=== PATIENT | male | born 1965 | race Caucasian/White ===

== ENCOUNTER 2018-11-10 22:13 | Emergency (ER) | payer OTHER ==
--- OUTSIDE RECORDS SUMMARY | 2018-11-10 22:16 | XMS REPORT | Clinical Summary ---
:1964 Demographics Phone Unavailable Preferred Language Unknown Marital Status Unknown Worship Affiliation Unknown Race Unknown Ethnic Group Unknown Author Organization [facility] Address [address] [place] [address] Care Team Providers Name Role Phone Unavailable Primary Care Provider Unavailable Allergies No Known Allergies Medications Not on file Active Problems Not on file Encounters Date Type Specialty Care Team Description 09/30/2018 Emergency Emergency Medicine [place], after 11/09/2017 Social History Tobacco Use Types Packs/Day Years Used Date Never Assessed Sex Assigned at Date Recorded Not on file Job Start Date Occupation Industry Not on file Not on file Not on file Travel History Travel Start Travel End No recent travel history available. Last Filed Vital Signs Not on file Plan of Treatment Not on file Results Not on fileafter 11/09/2017
--- OUTSIDE RECORDS SUMMARY | 2018-11-10 22:16 | XMS REPORT ---
:1965 [facility] Address [address] [place] [address] Care Team Providers Name Role Phone Unavailable Unavailable Unavailable Problems This patient has no known problems. Allergies, Adverse Reactions, Alerts This patient has no known allergies or adverse reactions. Medications This patient has no known medications.
[2018-11-10] MEDS ORDERED: NA CHLORIDE 0.9% 1,000 ML ONE (22:40)
[2018-11-10] MEDS ORDERED: ONDANSETRON 4 MG/2 ML VIAL ONE (22:40)
[2018-11-10 23:12] LABS: Absolute Lymphocytes (CBC) 2.2 K/uL (0.7-4.9); Basophils % 1.4 % (0-1.3); Eosinophils % 3.5 % (0-4.4); MPV 7.9 fL (7.6-11.3); Monocytes % 6.6 % (3.3-12.3)
[2018-11-10 23:30] LABS: ALT/SGPT 22 U/L (12-78); AST/SGOT 20 U/L (15-37); Albumin 3.8 g/dL (3.4-5.0); Alkaline Phosphatase 79 U/L (45-117); BUN Blood Urea Nitrogen 18 mg/dL (7-18); Bicarbonate 26 mmol/L (21-32); Bilirubin Direct 0.1 mg/dL (0-0.2); Bilirubin Total 0.3 mg/dL (0.2-1.0); Glucose Level 77 mg/dL (74-106); Potassium 3.4 mmol/L (3.5-5.1); Protein, Total 6.8 g/dL (6.4-8.2); Sodium Level 143 mmol/L (136-145)
[2018-11-10] MEDS ORDERED: POTASSIUM 25 MEQ EFFERV TAB ONE (23:54)
--- NOTE | 2018-11-11 01:05 | ER ---
Nurse's Notes [facility] Name: John Richards Age: 53 yrs Sex: Male : 1965 Arrival Date: 11/10/2018 Time: 22:16 Bed 4 Private MD: Diagnosis: Heat Exhaustion Presentation: 11/10 22:17 Presenting complaint: Patient states: Pt is homeless, has spent all day [place] [facility] [place], has not eaten today and states he has not been able to tolerate water. Pt reports that he was seen in ER in the [place] yesterday for same complaint but that they discharged him without giving him fluids. Transition of care: patient was not received from another setting of care. Onset of symptoms was November 10, 2018. Risk Assessment: Do you want to hurt yourself or someone else? Patient reports no desire to harm self or others. Initial Sepsis Screen: Does the patient meet any 2 criteria? No. Patient's initial sepsis screen is negative. Does the patient have a suspected source of infection? No. Patient's initial sepsis screen is negative. Care prior to arrival: None. 22:17 Method Of Arrival: EMS: [facility] 2 22:17 Acuity: VICTOR HUGO 3 tl2 Triage Assessment: 22:21 General: Appears in no apparent distress. uncomfortable, Behavior is calm, cooperative, tl2 appropriate for age. Pain: Complains of pain in chronic pain. Historical: - Allergies: 22:21 No Known Allergies; tl2 - Home Meds: 22:21 ibuprofen 800 mg Oral tab 1 tab BID [Active]; tl2 - PMHx: 22:21 chronic pain; Hernia; tl2 - PSHx: 22:21 None; tl2 - Immunization history:: Adult Immunizations up to date. - Social history:: Smoking status: Patient uses tobacco products, smokes one pack cigarettes per day. - Ebola Screening: : No symptoms or risks identified at this time. - Family history:: not pertinent. - Hospitalizations: : Patient was recently seen at [facility], . Screenin:22 Abuse screen: Denies threats or abuse. Nutritional screening: No deficits noted. tl2 Tuberculosis screening: No symptoms or risk factors identified. Fall Risk None identified. Assessment: 22:15 General: Appears in no apparent distress. unkempt, Behavior is calm, cooperative, rr5 appropriate for age, Smells of smoke mendez. Pain: Complains of pain in right inguinal Pain does not radiate. Pain currently is 5 out of 10 on a pain scale. Quality of pain is described as aching, Pain began gradually, Is intermittent. 22:15 Neuro: Level of Consciousness is awake, alert, obeys commands, Oriented to person, rr5 place, time, situation, Appropriate for age. Cardiovascular: Capillary refill < 3 seconds Patient's skin is warm and dry. Respiratory: Airway is patent Respiratory effort is even, unlabored, Respiratory pattern is regular, symmetrical. GI: Abdomen is flat. : No signs and/or symptoms were reported regarding the genitourinary system. EENT: No signs and/or symptoms were reported regarding the EENT system. Derm: Skin is intact, Skin temperature is warm. Musculoskeletal: Circulation, motion, and sensation intact. Capillary refill < 3 seconds, Range of motion: intact in all extremities. 22:50 Reassessment: Patient appears in no apparent distress at this time. Patient is alert, rr5 oriented x 3, equal unlabored respirations, skin warm/dry/pink. snacks given with good appetite. Patient states feeling better. Patient states symptoms have improved. 23:25 Reassessment: Patient appears in no apparent distress at this time. asleep on bed rr5 comfortably. Patient states feeling better. Patient states symptoms have improved. 11/11 00:25 Reassessment: Patient appears in no apparent distress at this time. turned on right rr5 side lying position. breathing spontaneously at room air. Patient states feeling better. Patient states symptoms have improved. 00:55 Reassessment: complaints of mild headache. ED provider informed with order made and rr5 carried out. 01:10 Reassessment: Patient appears in no apparent distress at this time. Patient is alert, rr5 oriented x 3, equal unlabored respirations, skin warm/dry/pink. discharge instruction given and explained without complaints made. Patient states symptoms have improved. Vital Signs: 11/10 22:21 BP 119 / 89; Pulse 68; Resp 18; Temp 97.9(O); Pulse Ox 99% on R/A; Weight 56.7 kg; tl2 Height 5 ft. 7 in. (170.18 cm); Pain 5/10; 23:00 BP 97 / 75; Pulse 73; Resp 17; Pulse Ox 99% on R/A; rr5 11/11 00:00 BP 95 / 60; Pulse 75; Resp 17; Pulse Ox 99% on R/A; rr5 01:00 BP 115 / 88; Pulse 70; Resp 16; Temp 98; Pulse Ox 100% on R/A; rr5 11/10 22:21 Body Mass Index 19.58 (56.70 kg, 170.18 cm) tl2 ED Course: 11/10 22:16 Patient arrived in ED. tl2 22:19 Triage completed. tl2 22:19 Endy Ham MD is Attending Physician. wa 22:20 Warm blanket given. Head of bed elevated. rr5 22:21 Arm band placed on right wrist. tl2 22:22 Patient has correct armband on for positive identification. Placed in gown. Bed in low tl2 position. Call light in reach. Side rails up X 1. 22:23 Jacinto Carrillo RN is Primary Nurse. rr5 22:30 Pulse ox on. NIBP on. rr5 22:35 Inserted saline lock: 20 gauge in left forearm, using aseptic technique. Blood rr5 collected. 22:40 Diet: Patient given snack. Patient given juice. Patient given water. Tolerated well. rr5 11/11 01:02 Benson Johnson MD is Referral Physician. wa 01:17 No provider procedures requiring assistance completed. IV discontinued, intact, rr5 bleeding controlled, No redness/swelling at site. Pressure dressing applied. Administered Medications: 11/10 22:38 Drug: Zofran 4 mg Route: IVP; Site: left forearm; rr5 23:40 Follow up: Response: No adverse reaction rr5 22:38 Drug: NS 0.9% 1000 ml Route: IV; Rate: 1 bolus; Site: left forearm; rr5 11/11 01:18 Follow up: Response: No adverse reaction; IV Status: Completed infusion; IV Intake: rr5 1000ml 11/10 23:44 Drug: Potassium Effervescent Tablet 50 mEq Route: PO; rr5 11/11 01:05 Follow up: Response: No adverse reaction rr5 01:00 Drug: Tylenol 1000 mg Route: PO; rr5 01:18 Follow up: Response: No adverse reaction; Medication administered at discharge. rr5 Intake: 01:18 IV: 1000ml; Total: 1000ml. rr5 Output: 00:55 Urine: 450ml (Voided); Total: 450ml. rr5 Outcome: 01:04 Discharge ordered by . lien 01:17 Discharged to home ambulatory. rr5 01:17 Condition: stable 01:17 Discharge instructions given to patient, Instructed on discharge instructions, follow up and referral plans. medication usage, Demonstrated understanding of instructions, follow-up care, medications, Prescriptions given X 1. 01:20 Patient left the ED. rr5 Signatures: Rachel Vanegas, RN RN tl2 Endy Ham MD MD wa Roque, Raymond RN RN rr5
--- NOTE | 2018-11-11 01:05 | EDPHYS ---
Physician Documentation [facility] Name: John Richards Age: 53 yrs Sex: Male : 1965 Arrival Date: 11/10/2018 Time: 22:16 Bed 4 Private MD: ED Physician Endy Ham HPI: 11/10 22:51 This 53 yrs old Male presents to ER via EMS with complaints of Dehydration, wa Heat exposure. 22:51 The patient presents to the emergency department with vomiting, states feels dehydrated wa [place]. brought in by EMS and police after calling them with complaint of dehydration. states vomited x 2 today. denies pain. tells me he was discharged from [facility] in the [place] and dropped in this area by a taxi because he wants to move here. . Onset: The symptoms/episode began/occurred today. Possible causes: heat-related illness. The symptoms are aggravated by nothing. The symptoms are alleviated by nothing. Associated signs and symptoms: Pertinent positives: vomiting, Pertinent negatives: abdominal pain, diarrhea, fever, nausea. Severity of symptoms: At their worst the symptoms were mild in the emergency department the symptoms none at this time. The patient has not experienced similar symptoms in the past, The patient has experienced similar episodes in the past, a few times. The patient has been recently seen by a physician:. as noted above. Historical: - Allergies: 22:21 No Known Allergies; tl2 - Home Meds: 22:21 ibuprofen 800 mg Oral tab 1 tab BID [Active]; tl2 - PMHx: 22:21 chronic pain; Hernia; tl2 - PSHx: 22:21 None; tl2 - Immunization history:: Adult Immunizations up to date. - Social history:: Smoking status: Patient uses tobacco products, smokes one pack cigarettes per day. - Ebola Screening: : No symptoms or risks identified at this time. - Family history:: not pertinent. - Hospitalizations: : Patient was recently seen at [facility], . ROS: 22:56 Constitutional: Negative for fever, chills, and weight loss, Eyes: Negative for injury, wa pain, redness, and discharge, ENT: Negative for injury, pain, and discharge, Neck: Negative for injury, pain, and swelling, Cardiovascular: Negative for chest pain, palpitations, and edema, Respiratory: Negative for shortness of breath, cough, wheezing, and pleuritic chest pain, Back: Negative for injury and pain, MS/Extremity: Negative for injury and deformity, Skin: Negative for injury, rash, and discoloration, Neuro: Negative for headache, weakness, numbness, tingling, and seizure, Psych: Negative for depression, anxiety, suicide ideation, homicidal ideation, and hallucinations. 22:56 Abdomen/GI: Positive for vomiting, Negative for diarrhea. 22:56 : Positive for of the R groin hernia. 22:56 Neuro: 22:56 All other systems are negative. Exam: 22:57 Constitutional: This is a well developed, well nourished patient who is awake, alert, wa and in no acute distress. Head/Face: Normocephalic, atraumatic. Eyes: Pupils equal round and reactive to light, extra-ocular motions intact. Lids and lashes normal. Conjunctiva and sclera are non-icteric and not injected. Cornea within normal limits. Periorbital areas with no swelling, redness, or edema. ENT: Nares patent. No nasal discharge, no septal abnormalities noted. Tympanic membranes are normal and external auditory canals are clear. Oropharynx with no redness, swelling, or masses, exudates, or evidence of obstruction, uvula midline. Mucous membranes moist. Neck: Trachea midline, no thyromegaly or masses palpated, and no cervical lymphadenopathy. Supple, full range of motion without nuchal rigidity, or vertebral point tenderness. No Meningismus. Cardiovascular: Regular rate and rhythm with a normal S1 and S2. No gallops, murmurs, or rubs. Normal PMI, no JVD. No pulse deficits. Respiratory: Lungs have equal breath sounds bilaterally, clear to auscultation and percussion. No rales, rhonchi or wheezes noted. No increased work of breathing, no retractions or nasal flaring. Back: No spinal tenderness. No costovertebral tenderness. Full range of motion. Skin: Warm, dry with normal turgor. Normal color with no rashes, no lesions, and no evidence of cellulitis. MS/ Extremity: Pulses equal, no cyanosis. Neurovascular intact. Full, normal range of motion. Neuro: Awake and alert, GCS 15, oriented to person, place, time, and situation. Cranial nerves II-XII grossly intact. Motor strength 5/5 in all extremities. Sensory grossly intact. Cerebellar exam normal. Normal gait. Psych: Awake, alert, with orientation to person, place and time. Behavior, mood, and affect are within normal limits. 22:57 Abdomen/GI: Inspection: abdomen appears normal, Bowel sounds: normal, in all quadrants, Palpation: abdomen is soft and non-tender, in all quadrants, Hernia: noted in the right inguinal area, non-tender. reducible. Vital Signs: 22:21 BP 119 / 89; Pulse 68; Resp 18; Temp 97.9(O); Pulse Ox 99% on R/A; Weight 56.7 kg; tl2 Height 5 ft. 7 in. (170.18 cm); Pain 5/10; 23:00 BP 97 / 75; Pulse 73; Resp 17; Pulse Ox 99% on R/A; rr5 11/11 00:00 BP 95 / 60; Pulse 75; Resp 17; Pulse Ox 99% on R/A; rr5 01:00 BP 115 / 88; Pulse 70; Resp 16; Temp 98; Pulse Ox 100% on R/A; rr5 11/10 22:21 Body Mass Index 19.58 (56.70 kg, 170.18 cm) tl2 MDM: 11/10 22:19 Patient medically screened. ar 22:58 Differential diagnosis: gastritis, r/o renal failure. consider heat exhaustion. ar 11/11 00:22 Data reviewed: vital signs, nurses notes, lab test result(s). Test interpretation: by ar ED physician or midlevel provider: labs noted for low K of 3.4. Response to treatment: the patient's symptoms have markedly improved after treatment. ED course: repalced K po. pt eat a sandwich. sleeping comfortably. awaiting UA. plan to d/c. . 01:01 Test interpretation: by ED physician or midlevel provider: UA noted for 1+ ketones. ar 11/10 22:21 Order name: Urine Drug Screen ar 11/10 22:53 Order name: Basic Metabolic Panel; Complete Time: 23:37 EDMS 11/10 22:53 Order name: Liver (Hepatic) Function; Complete Time: 23:37 EDMS 11/10 22:53 Order name: Acetaminophen Level; Complete Time: 23:37 EDMS 11/10 22:53 Order name: CBC with Automated Diff; Complete Time: 23:37 [facility] 11/11 00:56 Order name: Urine Dipstick--Ancillary (enter results) 6 11/10 22:21 Order name: IV Saline Lock; Complete Time: 22:47 ar 11/10 22:21 Order name: Labs collected and sent; Complete Time: 22:47 ar 11/10 22:21 Order name: Urine Dipstick-Ancillary (obtain specimen); Complete Time: 01:08 ar Administered Medications: 11/10 22:38 Drug: Zofran 4 mg Route: IVP; Site: left forearm; rr5 23:40 Follow up: Response: No adverse reaction rr5 22:38 Drug: NS 0.9% 1000 ml Route: IV; Rate: 1 bolus; Site: left forearm; rr5 11/11 01:18 Follow up: Response: No adverse reaction; IV Status: Completed infusion; IV Intake: rr5 1000ml 11/10 23:44 Drug: Potassium Effervescent Tablet 50 mEq Route: PO; rr5 11/11 01:05 Follow up: Response: No adverse reaction rr5 01:00 Drug: Tylenol 1000 mg Route: PO; rr5 01:18 Follow up: Response: No adverse reaction; Medication administered at discharge. rr5 Disposition: 11/11/18 01:04 Discharged to Home. Impression: Heat Exhaustion. - Condition is Stable. - Discharge Instructions: Dehydration, Adult, [id number]. - Prescriptions for Zofran 4 mg Oral Tablet - take 1 tablet by ORAL route every 12 hours As needed; 6 tablet. - Medication Reconciliation Form, Thank You Letter, Antibiotic Education, Prescription Opioid Use form. - Follow up: Benson Johnson MD; When: 2 - 3 days; Reason: Recheck today's complaints. - Problem is new. - Symptoms have improved. - Notes: stay hydrated. get shade during the day when the heat is at its worst. Signatures: Dis[facility] Rachel Vanegas, RN RN tl2 Endy Ham MD MD wa Roque, Raymond RN RN rr5 Corrections: (The following items were deleted from the chart) 01: 00:43 ACETAMINOPHEN+C.LAB.BRZ ordered. EDMS EDMS 01: 00:43 BASIC METABOLIC PANEL+C.LAB.BRZ ordered. EDMS EDLA 01:01 00:43 CBC+H.LAB.BRZ ordered. EDLA EDMS 01:01 00:43 HEPATIC FUNCTION+C.LAB.BRZ ordered. [facility] EDMS 01:19 01:04 11/11/2018 01:04 Discharged to Home. Impression: Heat Exhaustion. Condition is rr5 Stable. Forms are Medication Reconciliation Form, Thank You Letter, Antibiotic Education, Prescription Opioid Use. Follow up: A Johnson; When: 2 - 3 days; Reason: Recheck today's complaints. Problem is new. Symptoms have improved. ar 01:20 01:19 11/11/2018 01:04 Discharged to Home. Impression: Heat Exhaustion. Condition is rr5 Stable. Discharge Instructions: Dehydration, Adult, [id number]. Prescriptions for Zofran 4 mg Oral Tablet - take 1 tablet by ORAL route every 12 hours As needed; 6 tablet. and Forms are Medication Reconciliation Form, Thank You Letter, Antibiotic Education, Prescription Opioid Use. Follow up: A Johnson; When: 2 - 3 days; Reason: Recheck today's complaints. Problem is new. Symptoms have improved. rr5
[2018-11-11 01:08] LABS: Urine Blood NEGATIVE (NEG); Urine Glucose NEGATIVE (NEG); Urine Protein NEGATIVE (NEG); Urine Specific Gravity 1.025 (1.005-1.030); Urine pH 5.5 (5.0-7.0)
[2018-11-11] MEDS ORDERED: ACETAMINOPHEN 500 MG TAB ONE (01:10)
[2018-11-11 06:30] LABS: Barbiturates NEGATIVE (NEGATIVE); Benzodiazepines NEGATIVE (NEGATIVE); Cocaine NEGATIVE (NEGATIVE); METHAMPHETAM NEGATIVE (NEGATIVE); Methadone NEGATIVE (NEGATIVE); Opiates NEGATIVE (NEGATIVE); Phencyclidine NEGATIVE (NEGATIVE); THC Cannibis NEGATIVE (NEGATIVE)
== END 2018-11-11 01:20 | disposition home or self-care (01) ==
LOC: ER 22:13
DX: T67.5XXA Heat exhaustion, unspecified, initial encounter (principal); Y93.01 Activity, walking, marching and hiking; Y92.832 Beach as the place of occurrence of the external cause; Z72.0 Tobacco use; G89.29 Other chronic pain
CPT/HCPCS: 96361; 85025; 80048; 36415; 80329; 80076; 80307 ×8; 81003; 96374; 99284; J7030; J2405

== ENCOUNTER 2018-11-12 02:18 | Emergency (ER) | payer OTHER ==
--- OUTSIDE RECORDS SUMMARY | 2018-11-12 02:22 | XMS REPORT | Clinical Summary ---
:1965 Author Organization [facility] Address [address] [place] [address] Care Team Providers Name Role Phone Pcp, No Primary Care Provider Unavailable Allergies No Known Allergies Medications Medication Sig Dispensed Refills Start Date End Date Status QUEtiapine (SEROQUEL) Take 300 mg by 0 Active 300 MG tablet mouth nightly. ibuprofen Take 600 mg by 0 Active (ADVIL,MOTRIN) 600 MG mouth every 6 tablet (six) hours as needed for Pain. LITHIUM CARBONATE ORAL Take by mouth. 0 Active Active Problems No known active problems Encounters Date Type Specialty Care Team Description 11/08/2018 - Emergency Emergency Medicine Mehdi Snell Suicidal ideations (Primary Dx); 11/09/2018 MD Tenisha Polysubstance abuse (HCC) 11/08/2018 Orders Only General Internal Medicine 11/08/2018 Travel 09/11/2018 - Emergency Emergency Medicine Wally Castañeda Suicidal ideation (Primary Dx); 09/12/2018 MD Keyshawn Acute cystitis without hematuria 09/11/2018 Travel 08/13/2018 - Emergency Emergency Medicine Elias Chamorro, Suicidal ideation (Primary Dx); 08/14/2018 MD Landon, initial encounter; Mental health problem 08/13/2018 Orders Only General Internal Medicine 08/13/2018 Travel after 11/11/2017 Social History Tobacco Use Types Packs/Day Years Used Date Current Every Day Smoker Cigarettes 1 Smokeless Tobacco: Never Used Alcohol Use Drinks/Week oz/Week Comments No Sex Assigned at Date Recorded Not on file Job Start Date Occupation Industry Not on file Not on file Not on file Travel History Travel Start Travel End No recent travel history available. Last Filed Vital Signs Vital Sign Reading Time Taken Blood Pressure 119/74 11/09/2018 3:33 AM CDT Pulse 69 11/09/2018 3:33 AM CDT Temperature 36.4 C (97.6 F) 11/09/2018 3:33 AM CDT Respiratory Rate 20 11/09/2018 3:33 AM CDT Oxygen Saturation 95% 11/09/2018 3:33 AM CDT Inhaled Oxygen Concentration - - Weight 65.8 kg (145 lb) 11/08/2018 10:40 PM CDT Height 177.8 cm (5' 10") 11/08/2018 10:40 PM CDT Body Mass Index 20.81 11/08/2018 10:40 PM CDT Plan of Treatment Not on file Procedures Procedure Name Priority Date/Time Associated Comments Diagnosis RAPID DRUG SCREEN, STAT 11/08/2018 11:52 Results for this URINE PM CDT procedure are in the results section. CBC W/PLT COUNT & AUTO STAT 11/08/2018 11:08 Results for this DIFFERENTIAL PM CDT procedure are in the results section. CBC W/PLT COUNT & AUTO STAT 11/08/2018 11:08 Results for this DIFFERENTIAL PM CDT procedure are in the results section. ACETAMINOPHEN LEVEL STAT 11/08/2018 11:08 Results for this PM CDT procedure are in the results section. SALICYLATE LEVEL STAT 11/08/2018 11:08 Results for this PM CDT procedure are in the results section. ETHANOL STAT 11/08/2018 11:08 Results for this PM CDT procedure are in the results section. HEPATIC FUNCTION PANEL STAT 11/08/2018 11:08 Results for this PM CDT procedure are in the results section. PHOSPHORUS STAT 11/08/2018 11:08 Results for this PM CDT procedure are in the results section. MAGNESIUM STAT 11/08/2018 11:08 Results for this PM CDT procedure are in the results section. BASIC METABOLIC PANEL STAT 11/08/2018 11:08 Results for this (7) PM CDT procedure are in the results section. ECG 12-LEAD Routine 11/08/2018 11:02 PM CDT Procedure Note - Interface, External Ris In - 11/08/2018 11:05 PM CDT Ventricular Rate 83 BPM Atrial Rate 83 BPM P-R Interval 156 ms QRS Duration 106 ms Q-T Interval 388 ms QTC Calculation(Bazett) 455 ms P Bethesda 80 degrees R Bethesda 68 degrees T Bethesda 68 degrees Normal sinus rhythm Incomplete right bundle branch block Borderline ECG When compared with ECG of 12-SEP-2018 02:26, PREVIOUS ECG IS PRESENT ECG 12-LEAD STAT 11/08/2018 11:02 PM CDT REPORT OF PROCEDURE - 09/17/2018 8:51 AM CDT ENDOSCOPY SCAN ECG 12-LEAD Routine 09/12/2018 2:26 AM CDT Procedure Note - Interface, External Ris In - 09/12/2018 2:27 AM CDT Ventricular Rate 62 BPM Atrial Rate 62 BPM P-R Interval 144 ms QRS Duration 112 ms Q-T Interval 416 ms QTC Calculation(Bazett) 422 ms P Bethesda 82 degrees R Bethesda 85 degrees T Bethesda 79 degrees Normal sinus rhythm Incomplete right bundle branch block Possible Lateral infarct , age undetermined Abnormal ECG When compared with ECG of 13-AUG-2018 22:51, PREVIOUS ECG IS PRESENT ECG 12-LEAD STAT 09/12/2018 2:26 AM CDT RAPID DRUG SCREEN, URINE STAT 09/12/2018 1:08 AM CDT URINALYSIS W/ REFLEX URINE STAT 09/12/2018 1:08 AM CDT Results for this CULTURE procedure are in the results section. URINE CULTURE STAT 09/12/2018 1:08 AM CDT CBC W/PLT COUNT & AUTO STAT 09/11/2018 10:11 PM CDT Results for this DIFFERENTIAL procedure are in the results section. ETHANOL STAT 09/11/2018 10:11 PM CDT SALICYLATE LEVEL STAT 09/11/2018 10:11 PM CDT ACETAMINOPHEN LEVEL STAT 09/11/2018 10:11 PM CDT LIPASE STAT 09/11/2018 10:11 PM CDT COMPREHENSIVE METABOLIC STAT 09/11/2018 10:11 PM CDT Results for this PANEL procedure are in the results section. CBC W/PLT COUNT & AUTO STAT 09/11/2018 10:11 PM CDT Results for this DIFFERENTIAL procedure are in the results section. ED ECG INTERPRETATION Routine 09/11/2018 8:44 PM CDT REPORT OF PROCEDURE - 08/15/2018 3:11 PM CDT ENDOSCOPY SCAN ED ECG INTERPRETATION Routine 08/13/2018 11:13 PM CDT RAPID DRUG SCREEN, URINE STAT 08/13/2018 11:03 PM CDT CBC W/PLT COUNT & AUTO STAT 08/13/2018 10:58 PM CDT Results for this DIFFERENTIAL procedure are in the results section. SALICYLATE LEVEL STAT 08/13/2018 10:58 PM CDT ETHANOL STAT 08/13/2018 10:58 PM CDT CBC W/PLT COUNT & AUTO STAT 08/13/2018 10:58 PM CDT Results for this DIFFERENTIAL procedure are in the results section. BASIC METABOLIC PANEL (7) STAT 08/13/2018 10:58 PM CDT ACETAMINOPHEN LEVEL STAT 08/13/2018 10:58 PM CDT ECG 12-LEAD Routine 08/13/2018 10:51 PM CDT Procedure Note - Interface, External Ris In - 08/13/2018 10:52 PM CDT Ventricular Rate 58 BPM Atrial Rate 58 BPM P-R Interval 136 ms QRS Duration 106 ms Q-T Interval 416 ms QTC Calculation(Bazett) 408 ms P Bethesda 76 degrees R Bethesda 76 degrees T Bethesda 74 degrees Sinus bradycardia Otherwise normal ECG No previous ECGs available ECG 12-LEAD STAT 08/13/2018 10:51 PM CDT after 11/11/2017 Results Rapid drug screen, urine (11/08/2018 11:52 PM CDT)Only the most recent of3 resultswithin the time period is included. Barbiturate Screen Negative Negative [facility] Benzodiazepine Screen Positive (A) Negative [facility] Cocaine (Metab.) Screen Negative Negative [facility] Methadone Screen Negative Negative [facility] Opiate Screen Negative Negative [facility] Cannabinoid Screen Negative Negative [facility] Amph/Methamph Screen Positive (A) Negative [facility] Phencyclidine Screen Negative Negative [facility] Specimen Urine Narrative Performed At [facility] Cocaine 300 ng/mL Hlrhpomkcfo24 ng/mL Waglnioroacrgj565 ng/mL Barbiturate 200 ng/mL Ollixcmjzqtsn77 ng/mL Oargok976 ng/mL Methadone 300 ng/mL Amphetamine/ 1000 ng/mL Methamphetamine This assay provides an unconfirmed qualitative test result for the clinical management of patients in emergency situations. Chain of custody not maintained. Some vemg-fbx-vwukzvx medications, as well as adulterants, may cause inaccurate results. Clinical correlation should be applied. A more comprehensive drug screen or confirmation of a detected drug may be performed upon request. Performing Organization Address City/[facility] Phone Number [facility] [address] [place] [address] CBC with platelet count + automated diff (11/08/2018 11:08 PM CDT)Only the most recent of3 resultswithin the time period is included. WBC 9.0 4.0 - 10.0 K/L [facility] RBC 3.91 (L) 4.20 - 5.80 M/L [facility] Hemoglobin 12.0 (L) 13.0 - 16.8 GM/DL [facility] Hematocrit 36.3 36.0 - 50.0 % [facility] MCV 92.8 82.0 - 99.0 fL [facility] MCH 30.7 27.0 - 33.0 pg [facility] MCHC 33.1 32.0 - 36.0 GM/DL [facility] RDW 12.9 12.0 - 15.0 % [facility] Platelets 315 150 - 430 K/CU MM [facility] MPV 9.0Comment: 6.0 - 11.5 fL [facility] MPV-Approximately 20% positive bias due to method change. nRBC 0 0 - 0 /100 WBC [facility] % Neutros 64 % [facility] % Lymphs 23 % [facility] % Monos 9 % [facility] % Eos 3 % [facility] % Baso 1 % [facility] # Neutros 5.81 1.80 - 8.00 K/L [facility] # Lymphs 2.03 1.48 - 4.50 K/L [facility] # Monos 0.81 0.00 - 1.30 K/L [facility] # Eos 0.25 0.00 - 0.50 K/L [facility] # Baso 0.10 0.00 - 0.20 K/L [facility] Immature 0 0 - 0 % [facility] Granulocytes-Relative Specimen Blood Performing Organization Address City/[facility] Phone Number [facility] [address] [place] [address] Phosphorus (11/08/2018 11:08 PM CDT) Phosphorus 3.2 2.5 - 4.5 mg/dL [facility] Specimen Blood Performing Organization Address [facility] Phone Number [facility] [address] [place] [address] Magnesium (11/08/2018 11:08 PM CDT) Magnesium 2.1 1.5 - 3.0 mg/dL [facility] Specimen Blood Performing Organization Address [facility] Phone Number [facility] [address] [place] [address] Ethanol (11/08/2018 11:08 PM CDT)Only the most recent of3 resultswithin the time period is included. Ethanol Lvl <10 <=10 mg/dL [facility] Specimen Blood Performing Organization Address [facility] [address] [place] [address] Acetaminophen level (11/08/2018 11:08 PM CDT)Only the most recent of3 resultswithin the time period is included. Acetaminophen Level 9.4 (L) 10.0 - 30.0 ug/mL [facility] Specimen Blood Performing Organization Address [facility] Number [facility] [address] [place] [address] Salicylate level (11/08/2018 11:08 PM CDT)Only the most recent of3 resultswithin the time period is included. Salicylate Lvl <5.0 (L) 20.0 - 30.0 mg/dL [facility] Specimen Blood Performing Organization Address [facility] Phone Number [facility] [address] [place] [address] Hepatic function panel (11/08/2018 11:08 PM CDT) Protein, Total 6.6 6.0 - 8.5 gm/dL [facility] Albumin 4.0 3.5 - 5.0 g/dL [facility] Total Bilirubin 0.3 0.1 - 1.3 mg/dL [facility] Bilirubin, Direct 0.1 0.0 - 0.5 mg/dL [facility] Alkaline Phosphatase 81 30 - 115 U/L [facility] AST 22 5 - 40 U/L [facility] ALT 15 6 - 50 U/L [facility] Specimen Blood Performing Organization Address [facility] Phone Number [facility] [address] [place] [address] [phone] Basic Metabolic Panel (11/08/2018 11:08 PM CDT)Only the most recent of2 resultswithin the time period is included. Sodium 137 135 - 148 meq/L [facility] Potassium 3.6 3.5 - 5.5 meq/L [facility] Chloride 104 98 - 106 meq/L [facility] CO2 23 20 - 31 meq/L [facility] BUN 30 (H) 10 - 26 mg/dL [facility] Creatinine 0.91 0.50 - 1.20 mg/dL [facility] Glucose 126 (H) 70 - 110 mg/dL [facility] Calcium 8.7 8.5 - 10.5 mg/dL [facility] EGFR 87Comment: ESTIMATED GFR IS NOT mL/min/1.73 sq m [facility] ACCURATE CREATININE CLEARANCE IN PREDICTING GLOMERULAR FILTRATION RATE. ESTIMATED GFR IS NOT APPLICABLE FOR DIALYSIS PATIENTS. Specimen Blood Performing Organization Address [facility] Phone Number [facility] [address] [place] [address] [phone] ECG 12 lead (11/08/2018 11:02 PM CDT)Only the most recent of3 resultswithin the time period is included. Specimen Narrative Performed At Ventricular Rate 83 BPM GE MUSE Atrial Rate 83 BPM P-R Interval 156 ms QRS Duration 106 ms Q-T Interval 388 ms QTC Calculation(Bazett) 455 ms P Bethesda 80 degrees R Bethesda 68 degrees T Bethesda 68 degrees Normal sinus rhythm Incomplete right bundle branch block Borderline ECG Procedure Note Interface, External Ris In - 11/10/2018 4:36 PM CDT Ventricular Rate 83 BPM Atrial Rate 83 BPM P-R Interval 156 ms QRS Duration 106 ms Q-T Interval 388 ms QTC Calculation(Bazett) 455 ms P Bethesda 80 degrees R Bethesda 68 degrees T Bethesda 68 degrees Normal sinus rhythm Incomplete right bundle branch block Borderline ECG Performing Organization Address [facility] Phone Number GE MUSE EKG-SCANNED (09/17/2018 8:51 AM CDT)Only the most recent of2 resultswithin the time period is included. Narrative Performed At Urinalysis w/Microscopic + Reflex to Culture (09/12/2018 1:08 AM CDT) Color, UA Yellow [facility] Clarity, UA Clear [facility] Specific [place], UA 1.015 1.001 - 1.035 [facility] pH, UA 6.0 5.0 - 8.0 [facility] Protein, UA Negative Negative [facility] Glucose, UA Negative Negative [facility] Ketones, UA 20 mg/dL (A) Negative [facility] Bilirubin, UA Negative Negative [facility] Blood, UA Negative Negative [facility] Nitrite, UA Negative Negative [facility] Leukocytes, UA Small (A) Negative [facility] Urobilinogen, UA 2.0 (H) 0.2 - 1.0 mg/dL [facility] RBC, UA 4 /HPF [facility] WBC, UA 21 /HPF [facility] Bacteria, UA Few [facility] Mucus Moderate [facility] Squam Epithel, UA <1 /HPF [facility] Specimen Source [facility] Specimen Urine Performing Organization Address [facility] Phone Number [facility] [address] [place] [address] Urine culture (09/12/2018 1:08 AM CDT) Result 60-69,000 col/mL skin bhupendra [facility] Specimen Urine Performing Organization Address [facility] Phone Number [facility] [address] [place] [address] Lipase (09/11/2018 10:11 PM CDT) Lipase 17 8 - 78 U/L [facility] Specimen Blood Performing Organization Address [facility] Phone Number [facility] [address] [place] [address] Comprehensive metabolic panel (09/11/2018 10:11 PM CDT) Protein, Total 7.2Comment: Specimen 6.0 - 8.5 gm/dL [facility] markedly hemolyzed Albumin 4.1Comment: Specimen 3.5 - 5.0 g/dL [facility] markedly hemolyzed Alkaline Phosphatase 76 30 - 115 U/L [facility] Total Bilirubin 0.5Comment: Specimen 0.1 - 1.3 mg/dL [facility] markedly hemolyzed Sodium 139 135 - 148 meq/L [facility] Potassium 4.9Comment: Specimen 3.5 - 5.5 meq/L [facility] markedly hemolyzed Chloride 106 98 - 106 meq/L [facility] CO2 23 20 - 31 meq/L [facility] BUN 7 (L) 10 - 26 mg/dL [facility] Creatinine 0.83Comment: Specimen 0.50 - 1.20 mg/dL [facility] markedly hemolyzed Glucose 82 70 - 110 mg/dL [facility] Calcium 9.5 8.5 - 10.5 mg/dL [facility] AST 37Comment: Specimen 5 - 40 U/L [facility] markedly hemolyzed ALT 23Comment: Specimen 6 - 50 U/L [facility] markedly hemolyzed EGFR 97Comment: ESTIMATED GFR mL/min/1.73 sq m [facility] IS NOT ACCURATE CREATININE CLEARANCE IN PREDICTING GLOMERULAR FILTRATION RATE. ESTIMATED GFR IS NOT APPLICABLE FOR DIALYSIS PATIENTS. Specimen Blood Performing Organization Address City/State/Zipcode Phone Number [facility] [address] [place] [address] ECG/EKG Interpretation (09/11/2018 8:44 PM CDT)Only the most recent of2 resultswithin the time period is included. Narrative Performed At Wally Castañeda MD 09/12/20182:30 AM ECG/EKG Interpretation Date/Time: 09/12/2018 2:28 AM Performed by: Wally Castañeda MD Authorized by: Wally Castañeda MD The ECG was interpreted by ED physician. This ECG was not compared with previous ECG(s).The ECG is interpreted as sinus rhythm. Rate is normal rate. Heart rate is 62 BPM. Abnormal conduction noted: incomplete RBBB. ST segments normal. T waves normal. Bethesda is normal. Other findings: no other findings. Right sided lead use: right-sided leads not used. Left sided lead use: Posterior leads were not used. Clinical Impression: abnormal ECGECG reviewed and does not meet STEMI criteria. Patient tolerance: Patient tolerated the procedure well with no immediate complications after 11/11/2017 Insurance Payer Benefit Plan / Group Subscriber ID Type Phone Address [facility]
--- OUTSIDE RECORDS SUMMARY | 2018-11-12 02:23 | XMS REPORT ---
:1965 [facility] [address] [place] [address] Care Team Providers Name Role Phone ISIAH VEGA Unavailable Unavailable NEENA MAN Unavailable Unavailable JOSE, VIDYA VAZQUEZ Unavailable Unavailable KIERRA CARVALHO Unavailable Unavailable Payers Payer Name Policy Type Policy Number Effective Date Expiration Date Problems This patient has no known problems. Allergies, Adverse Reactions, Alerts Allergy Allergy Status Severity Reaction(s) Onset Inactive Treating Comments Name Type Date Date Clinician No Known DA Active U 2018-10 Allergies -05 00:00:0 0 No Known DA Active U 2018-07 Allergies -18 00:00:0 0 Medications This patient has no known medications. Results Test Description Test Time Test Comments Text Results Atomic Results Result Comments RAPID DRUG SCREEN, URINE 2018-11-09 00:27:00 Test Item Value Reference Range Comments BARBITURATE URINE (BEAKER) (test moyw=260) Negative Negative BENZODIAZEPINE SCREEN URINE (BEAKER) (test kwws=193) Positive Negative COCAINE (METAB.) SCREEN (BEAKER) (test aghp=5992) Negative Negative METHADONE SCREEN (BEAKER) (test wpow=3176) Negative Negative OPIATE SCREEN URINE (BEAKER) (test ybnh=274) Negative Negative CANNABINOID SCREEN URINE (BEAKER) (test oggo=155) Negative Negative AMPH/METHAMPH SCREEN (BEAKER) (test qbtr=7863) Positive Negative PHENCYCLIDINE SCREEN URINE (BEAKER) (test bjet=728) Negative Negative DRUG CUTOFF CONC.Cocaine 300 ng/mL Cannabinoid 50 ng/mLBenzodiazepine 200 ng/mLBarbiturate 200 ng/ mLPhencyclidine 25 ng/mLOpiate 300 ng/mLMethadone 300 ng/mLAmphetamine/ 1000 ng/mL MethamphetamineThis assay provides an unconfirmed qualitative test result for the clinical management of patients in emergency situations. Chain of custody not maintained. Some xwyd-unm-imbqcec medications, as well as adulterants, may cause inaccurate results. Clinical correlation should be applied. A more comprehensivedrug screen or confirmation of a detected drug may be performed upon request.[id number] 23:53:00 Test Item Value Reference Range Comments ETHANOL (BEAKER) (test eemu=301) < mg/dL <=10 [id number] 23:41:00 Test Item Value Reference Range Comments PHOSPHORUS (BEAKER) (test lckd=260) 3.2 mg/dL 2.5-4.5 [id number] 23:41:00 Test Item Value Reference Range Comments MAGNESIUM (BEAKER) (test tmyz=987) 2.1 mg/dL 1.5-3.0 BASIC METABOLIC [id number] 23:41:00 Test Item Value Reference Range Comments SODIUM (BEAKER) (test 137 meq/L 135-148 ucxq=525) POTASSIUM (BEAKER) (test 3.6 meq/L 3.5-5.5 ijyi=551) CHLORIDE (BEAKER) (test 104 meq/L 98-106 gdie=303) CO2 (BEAKER) (test 23 meq/L 20-31 ezjy=973) BLOOD UREA NITROGEN 30 mg/dL 10-26 (BEAKER) (test xpjg=434) CREATININE (BEAKER) (test 0.91 mg/dL 0.50-1.20 ugzf=946) GLUCOSE RANDOM (BEAKER) 126 mg/dL 70-110 (test qaiw=768) CALCIUM (BEAKER) (test 8.7 mg/dL 8.5-10.5 kozw=470) EGFR (BEAKER) (test 87 mL/min/1.73 sq m ESTIMATED GFR IS NOT hwmh=2205) ACCURATE CREATININE CLEARANCE IN PREDICTING GLOMERULAR FILTRATION RATE. ESTIMATED GFR IS NOT APPLICABLE FOR DIALYSIS PATIENTS. HEPATIC FUNCTION [id number] 23:41:00 Test Item Value Reference Range Comments TOTAL PROTEIN (BEAKER) (test lkzw=950) 6.6 gm/dL 6.0-8.5 ALBUMIN (BEAKER) (test fxdq=3184) 4.0 g/dL 3.5-5.0 BILIRUBIN TOTAL (BEAKER) (test iskv=104) 0.3 mg/dL 0.1-1.3 BILIRUBIN DIRECT (BEAKER) (test ngxd=832) 0.1 mg/dL 0.0-0.5 ALKALINE PHOSPHATASE (BEAKER) (test dqta=080) 81 U/L 30-115 AST (SGOT) (BEAKER) (test yfeb=171) 22 U/L 5-40 ALT (SGPT) (BEAKER) (test axys=367) 15 U/L 6-50 SALICYLATE [id number] 23:39:00 Test Item Value Reference Range Comments SALICYLATE LEVEL (BEAKER) (test jngo=422) < mg/dL 20.0-30.0 ACETAMINOPHEN [id number] 23:38:00 Test Item Value Reference Range Comments ACETAMINOPHEN LEVEL (BEAKER) (test luzs=232) 9.4 ug/mL 10.0-30.0 CBC W/PLT COUNT & AUTO [id number] 23:15:00 Test Item Value Reference Range Comments WHITE BLOOD CELL COUNT (BEAKER) 9.0 K/ L 4.0-10.0 (test mnar=408) RED BLOOD CELL COUNT (BEAKER) 3.91 M/ L 4.20-5.80 (test hssr=545) HEMOGLOBIN (BEAKER) (test 12.0 GM/DL 13.0-16.8 qhvz=727) HEMATOCRIT (BEAKER) (test 36.3 % 36.0-50.0 heet=271) MEAN CORPUSCULAR VOLUME 92.8 fL 82.0-99.0 (BEAKER) (test zdjr=768) MEAN CORPUSCULAR HEMOGLOBIN 30.7 pg 27.0-33.0 (BEAKER) (test uyvg=653) MEAN CORPUSCULAR HEMOGLOBIN 33.1 GM/DL 32.0-36.0 CONC (BEAKER) (test jngy=619) RED CELL DISTRIBUTION WIDTH 12.9 % 12.0-15.0 (BEAKER) (test vkva=342) PLATELET COUNT (BEAKER) (test 315 K/CU MM 150-430 vvbc=963) MEAN PLATELET VOLUME (BEAKER) 9.0 fL 6.0-11.5 MPV-Approximately 20% (test eocl=883) positive bias due to method change. NUCLEATED RED BLOOD CELLS 0 /100 WBC 0-0 (BEAKER) (test xtiz=762) NEUTROPHILS RELATIVE PERCENT 64 % (BEAKER) (test nrxy=598) LYMPHOCYTES RELATIVE PERCENT 23 % (BEAKER) (test nise=596) MONOCYTES RELATIVE PERCENT 9 % (BEAKER) (test lwpm=927) EOSINOPHILS RELATIVE PERCENT 3 % (BEAKER) (test sfqn=609) BASOPHILS RELATIVE PERCENT 1 % (BEAKER) (test yzhk=280) NEUTROPHILS ABSOLUTE COUNT 5.81 K/ L 1.80-8.00 (BEAKER) (test ouhz=479) LYMPHOCYTES ABSOLUTE COUNT 2.03 K/ L 1.48-4.50 (BEAKER) (test exqz=956) MONOCYTES ABSOLUTE COUNT 0.81 K/ L 0.00-1.30 (BEAKER) (test rona=592) EOSINOPHILS ABSOLUTE COUNT 0.25 K/ L 0.00-0.50 (BEAKER) (test kenc=653) BASOPHILS ABSOLUTE COUNT 0.10 K/ L 0.00-0.20 (BEAKER) (test dcat=510) IMMATURE GRANULOCYTES-RELATIVE 0 % 0-0 PERCENT (BEAKER) (test lvra=1950) URINALYSIS [id number] 00:50:00 Test Item Value Reference Range Comments UA COLOR (test code=COLU) YELLOW DESCRIPT YELLOW UA APPEARANCE (test code=APPU) CLEAR DESCRIPT CLEAR UA GLUCOSE DIPSTICK (test code=DGLUU) NEGATIVE (0) mg/dL (NEG) 0 UA BILIRUBIN DIPSTICK (test code=BILU) NEGATIVE (0) mg/dL (NEG) 0 UA KETONE DIPSTICK (test code=KETU) 0 (NEG) mg/dL (NEG) 0 UA SPECIFIC GRAVITY (test code=SGU) 1.018 SG 1.001-1.035 UA BLOOD DIPSTICK (test code=AIDE) NEGATIVE (0) mg/DL (NEG) 0 UA PH DIPSTICK (test code=AIYANA) 6.0 pH UNITS 4.6-8.0 UA PROTEIN DIPSTICK (test code=PROU) NEGATIVE (0) mg/dL <30 (1+) UA UROBILINIOGEN DIPSTICK (test 2 mg/dL <2.0 (1+) code=URO) UA NITRITE DIPSTICK (test code=NATHANIEL) NEGATIVE (0) SCREEN NEG UA LEUKOCYTE ESTERASE DIPSTICK (test 25(TR) Leuk/mcL (NEG) 0 code=LEUU) UA WBC (test code=WBCU) 5-10 #WBC/HPF 0-3 UA RBC (test code=RBCU) 3-5 #RBC/HPF 0-3 UA SQUAMOUS CELLS (test code=SQU) RARE >0 /HPF NONE-SQepi UA MUCUS (test code=MUCU) RARE /LPF NONE CREATINE KINASE (CK)2018-10-19 17:54:00 Test Item Value Reference Range Comments CREATINE KINASE (CK) (test 1488 Unit/L 26-192 REPORTED RESULTS VERIFIED code=CK) WITH DILUTION PROCEDURES.REPORTED RESULTS VERIFIED WITH AUTO-DILUTION PROCEDURES. COMPREHENSIVE METABOLIC [id number] 17:20:00 Test Item Value Reference Range Comments SODIUM (test code=NA) 142.0 mmol/L 133-144 POTASSIUM (test code=K) 3.9 mmol/L 3.5-5.1 CHLORIDE (test code=CL) 109 mmol/L 95-105 CARBON DIOXIDE (test 22 mmol/L 21-32 code=CO2) ANION GAP (test code=GAP) 11.0 GAP calc 4.0-15.0 GLUCOSE (test code=GLU) 75 MG/DL 70-110 BLOOD UREA NITROGEN (test 41 MG/DL 7-18 code=BUN) GLOMERULAR FILTRATION 33 estGFR >60 The estimated glomerular RATE (test code=GFR) filtration rate is computed usingpatient race, age, sex, and serum creatinine. If any of theneeded data elements are missing the Laboratory can notcompute an estimation of the glomerular filtration rate.The GFR value units=ml/min/1.73 meter squared. EstimatedGFR values above 60 should be interpreted as >60, not anexact number.--- DRUG DOSAGE ALERT --- Drug dosage adjustments utilize different calculationparameters. CREATININE (test 2.11 MG/DL 0.55-1.30 Results may be depressed code=CREAT) if patient is takingN-Acetylcysteine (NAC) and Metamizole (Dipyrone). TOTAL PROTEIN (test 8.0 G/DL 6.4-8.2 code=PROT) ALBUMIN (test code=ALB) 4.7 G/DL 3.4-5.0 ALBUMIN/GLOBULIN RATIO 1.4 RATIO 1.2-2.2 (test code=A/G) CALCIUM (test code=CA) 8.9 MG/DL 8.5-10.1 BILIRUBIN TOTAL (test 0.54 MG/DL 0.00-1.00 code=BILT) BILIRUBIN DIRECT (test 0.14 MG/DL 0.00-0.30 code=BILD) BILIRUBIN INDIRECT (test 0.40 MG/DL 0.2-1.3 code=BILIND) SGOT/AST (test code=AST) 49 Unit/L 15-37 SGPT/ALT (test code=ALT) 36 Unit/L 12-78 ALKALINE PHOSPHATASE 93 Unit/L 45-117 TOTAL (test code=ALKP) INDEX HEMOLYSIS (test 1 NORMAL <10 MG 1 NORMAL code=HEMINDEX) Index/DL INDEX ICTERIC (test 1 NORMAL <2 MG 1 NORMAL code=ICTINDEX) Index/DL INDEX LIPEMIA (test 1 NORMAL <50 MG 1 NORMAL code=LIPINDEX) Index/DL [id number] 17:20:00 Test Item Value Reference Range Comments MAGNESIUM (test code=MAG) 2.7 MG/DL 1.6-2.6 COMPREHENSIVE METABOLIC [id number] 17:17:00 Test Item Value Reference Range Comments SODIUM (test code=NA) 142.0 mmol/L 133-144 POTASSIUM (test code=K) 3.9 mmol/L 3.5-5.1 CHLORIDE (test code=CL) 109 mmol/L 95-105 CARBON DIOXIDE (test 22 mmol/L 21-32 code=CO2) ANION GAP (test code=GAP) 11.0 GAP calc 4.0-15.0 GLUCOSE (test code=GLU) 75 MG/DL 70-110 BLOOD UREA NITROGEN (test 41 MG/DL 7-18 code=BUN) GLOMERULAR FILTRATION 33 estGFR >60 The estimated glomerular RATE (test code=GFR) filtration rate is computed usingpatient race, age, sex, and serum creatinine. If any of theneeded data elements are missing the Laboratory can notcompute an estimation of the glomerular filtration rate.The GFR value units=ml/min/1.73 meter squared. EstimatedGFR values above 60 should be interpreted as >60, not anexact number.--- DRUG DOSAGE ALERT --- Drug dosage adjustments utilize different calculationparameters. CREATININE (test 2.11 MG/DL 0.55-1.30 Results may be depressed code=CREAT) if patient is takingN-Acetylcysteine (NAC) and Metamizole (Dipyrone). TOTAL PROTEIN (test G/DL 6.4-8.2 code=PROT) ALBUMIN (test code=ALB) 4.7 G/DL 3.4-5.0 ALBUMIN/GLOBULIN RATIO RATIO 1.2-2.2 (test code=A/G) CALCIUM (test code=CA) 8.9 MG/DL 8.5-10.1 BILIRUBIN TOTAL (test MG/DL 0.00-1.00 code=BILT) BILIRUBIN DIRECT (test 0.14 MG/DL 0.00-0.30 code=BILD) BILIRUBIN INDIRECT (test MG/DL 0.2-1.3 code=BILIND) SGOT/AST (test code=AST) 49 Unit/L 15-37 SGPT/ALT (test code=ALT) 36 Unit/L 12-78 ALKALINE PHOSPHATASE Unit/L 45-117 TOTAL (test code=ALKP) INDEX HEMOLYSIS (test 1 NORMAL <10 MG 1 NORMAL code=HEMINDEX) Index/DL INDEX ICTERIC (test 1 NORMAL <2 MG 1 NORMAL code=ICTINDEX) Index/DL INDEX LIPEMIA (test 1 NORMAL <50 MG 1 NORMAL code=LIPINDEX) Index/DL [id number] 17:17:00 Test Item Value Reference Range Comments MAGNESIUM (test code=MAG) 2.7 MG/DL 1.6-2.6 CBC W/AUTO [id number] 17:03:00 Test Item Value Reference Range Comments WHITE BLOOD CELL (test code=WBC) 21.7 K/mm3 4.1-12.1 RED BLOOD CELL (test code=RBC) 4.24 M/mm3 3.8-5.5 HEMOGLOBIN (test code=HGB) 13.2 G/DL 10.6-15.8 HEMATOCRIT (test code=HCT) 39.1 % 31.8-47.4 MEAN CELL VOLUME (test code=MCV) 92.2 fL 80.1-101.1 MEAN CELL HGB (test code=MCH) 31.1 pg 25.3-35.3 MEAN CELL HGB CONCETRATION (test code=MCHC) 33.8 G/DL 32.7-35.1 RED CELL DISTRIBUTION WIDTH (test code=RDW) 13.3 % 12.2-16.4 RED CELL DISTRIBUTION WIDTH (test code=RDW-SD) 45.2 fL 35.1-43.9 PLATELET COUNT (test code=PLT) 319 K/mm3 155-337 MEAN PLATELET VOLUME (test code=MPV) 8.6 fL 7.6-10.4 GRANULOCYTE % (test code=GR%) 90.5 % 37.8-82.6 IMMATURE GRANULOCYTE % (test code=IG%) 0.5 % 0.0-2.0 LYMPHOCYTE % (test code=LY%) 3.5 % 14.1-45.4 MONOCYTE % (test code=MO%) 5.0 % 2.5-11.7 EOSINOPHIL % (test code=EO%) 0.0 % 0.0-6.2 BASOPHIL % (test code=BA%) 0.5 % 0.0-2.6 NUCLEATED RBC % (test code=NRBC%) 0.0 /100WBC% 0.0-1.0 GRANULOCYTE # (test code=GR#) 19.61 k/mm3 2.0-13.7 IMMATURE GRANULOCYTE # (test code=IG#) 0.10 K/mm3 0.00-0.03 LYMPHOCYTE # (test code=LY#) 0.75 K/mm3 0.6-3.8 MONOCYTE # (test code=MO#) 1.08 K/mm3 0.11-0.59 EOSINOPHIL # (test code=EO#) 0.01 K/mm3 0.0-0.4 BASOPHIL # (test code=BA#) 0.11 K/mm3 0.0-0.1 NUCLEATED RBC # (test code=NRBC#) 0.00 K/mm3 0.00-0.05 RAPID DRUG SCREEN, [id number] 01:40:00 Test Item Value Reference Range Comments BARBITURATE URINE (BEAKER) (test oypi=725) Negative Negative BENZODIAZEPINE SCREEN URINE (BEAKER) (test Negative Negative kech=960) COCAINE (METAB.) SCREEN (BEAKER) (test ctvh=2690) Negative Negative METHADONE SCREEN (BEAKER) (test lvps=1876) Negative Negative OPIATE SCREEN URINE (BEAKER) (test dzov=102) Negative Negative CANNABINOID SCREEN URINE (BEAKER) (test kzay=751) Negative Negative AMPH/METHAMPH SCREEN (BEAKER) (test oblx=5720) Negative Negative PHENCYCLIDINE SCREEN URINE (BEAKER) (test mldo=187) Negative Negative DRUG CUTOFF CONC.Cocaine 300 ng/mL Cannabinoid 50 ng/mLBenzodiazepine 200 ng/mLBarbiturate 200 ng/ mLPhencyclidine 25 ng/mLOpiate 300 ng/mLMethadone 300 ng/mLAmphetamine/ 1000 ng/mL MethamphetamineThis assay provides an unconfirmed qualitative test result for the clinical management of patients in emergency situations. Chain of custody not maintained. Some ewvy-epm-vwbcdzi medications, as well as adulterants, may cause inaccurate results. Clinical correlation should be applied. A more comprehensivedrug screen or confirmation of a detected drug may be performed upon request.URINALYSIS W/ REFLEX URINE [id number] 01:23:00 Test Item Value Reference Range Comments COLOR (BEAKER) (test qoqe=853) Yellow CLARITY (BEAKER) (test cdmk=664) Clear SPECIFIC GRAVITY UA (BEAKER) (test jngz=808) 1.015 1.001-1.035 PH UA (BEAKER) (test tupw=764) 6.0 5.0-8.0 PROTEIN UA (BEAKER) (test bomn=153) Negative Negative GLUCOSE UA (BEAKER) (test spis=126) Negative Negative KETONES UA (BEAKER) (test xzjp=961) 20 mg/dL Negative BILIRUBIN UA (BEAKER) (test fmaj=591) Negative Negative BLOOD UA (BEAKER) (test pdkf=562) Negative Negative NITRITE UA (BEAKER) (test djfq=282) Negative Negative LEUKOCYTE ESTERASE UA (BEAKER) (test xjnv=855) Small Negative UROBILINOGEN UA (BEAKER) (test rwgc=008) 2.0 mg/dL 0.2-1.0 RBC UA (BEAKER) (test bynv=504) 4 /HPF WBC UA (BEAKER) (test jekb=077) 21 /HPF BACTERIA (BEAKER) (test gjpd=078) Few MUCUS (BEAKER) (test zejq=2101) Moderate SQUAMOUS EPITHELIAL (BEAKER) (test uvky=534) < /HPF SOURCE(BEAKER) (test qzhb=9706) [id number] 23:00:00 Test Item Value Reference Range Comments LIPASE (BEAKER) (test pwyr=724) 17 U/L 8-78 COMPREHENSIVE METABOLIC [id number] 23:00:00 Test Item Value Reference Range Comments TOTAL PROTEIN (BEAKER) 7.2 gm/dL 6.0-8.5 Specimen markedly (test gvyb=175) hemolyzed ALBUMIN (BEAKER) (test 4.1 g/dL 3.5-5.0 Specimen markedly kddn=5004) hemolyzed ALKALINE PHOSPHATASE 76 U/L 30-115 (BEAKER) (test xktf=671) BILIRUBIN TOTAL (BEAKER) 0.5 mg/dL 0.1-1.3 Specimen markedly (test ixau=405) hemolyzed SODIUM (BEAKER) (test 139 meq/L 135-148 xlft=541) POTASSIUM (BEAKER) (test 4.9 meq/L 3.5-5.5 Specimen markedly akuc=893) hemolyzed CHLORIDE (BEAKER) (test 106 meq/L 98-106 pbcy=939) CO2 (BEAKER) (test 23 meq/L 20-31 fttf=111) BLOOD UREA NITROGEN 7 mg/dL 10-26 (BEAKER) (test ewga=932) CREATININE (BEAKER) (test 0.83 mg/dL 0.50-1.20 Specimen markedly uexu=208) hemolyzed GLUCOSE RANDOM (BEAKER) 82 mg/dL 70-110 (test givg=548) CALCIUM (BEAKER) (test 9.5 mg/dL 8.5-10.5 ietk=513) AST (SGOT) (BEAKER) (test 37 U/L 5-40 Specimen markedly fihs=192) hemolyzed ALT (SGPT) (BEAKER) (test 23 U/L 6-50 Specimen markedly hycx=413) hemolyzed EGFR (BEAKER) (test 97 mL/min/1.73 sq m ESTIMATED GFR IS NOT vxql=9297) ACCURATE CREATININE CLEARANCE IN PREDICTING GLOMERULAR FILTRATION RATE. ESTIMATED GFR IS NOT APPLICABLE FOR DIALYSIS PATIENTS. ACETAMINOPHEN [id number] 22:57:00 Test Item Value Reference Range Comments ACETAMINOPHEN LEVEL (BEAKER) < ug/mL 10.0-30.0 Specimen markedly hemolyzed (test lhot=465) SALICYLATE [id number] 22:52:00 Test Item Value Reference Range Comments SALICYLATE LEVEL (BEAKER) (test ubsh=850) < mg/dL 20.0-30.0 [id number] 22:47:00 Test Item Value Reference Range Comments ETHANOL (BEAKER) (test aonj=567) < mg/dL <=10 CBC W/PLT COUNT & AUTO [id number] 22:24:00 Test Item Value Reference Range Comments WHITE BLOOD CELL COUNT (BEAKER) 5.5 K/ L 4.0-10.0 (test tgqd=639) RED BLOOD CELL COUNT (BEAKER) 4.12 M/ L 4.20-5.80 (test nwvt=963) HEMOGLOBIN (BEAKER) (test 13.0 GM/DL 13.0-16.8 gnqy=574) HEMATOCRIT (BEAKER) (test 39.0 % 36.0-50.0 aasp=037) MEAN CORPUSCULAR VOLUME 94.7 fL 82.0-99.0 (BEAKER) (test yyce=587) MEAN CORPUSCULAR HEMOGLOBIN 31.6 pg 27.0-33.0 (BEAKER) (test ujox=980) MEAN CORPUSCULAR HEMOGLOBIN 33.3 GM/DL 32.0-36.0 CONC (BEAKER) (test ovay=428) RED CELL DISTRIBUTION WIDTH 13.6 % 12.0-15.0 (BEAKER) (test tqav=391) PLATELET COUNT (BEAKER) (test 321 K/CU MM 150-430 uhcs=673) MEAN PLATELET VOLUME (BEAKER) 8.9 fL 6.0-11.5 MPV-Approximately 20% (test cwaa=114) positive bias due to method change. NUCLEATED RED BLOOD CELLS 0 /100 WBC 0-0 (BEAKER) (test qqzd=580) NEUTROPHILS RELATIVE PERCENT 59 % (BEAKER) (test pqln=901) LYMPHOCYTES RELATIVE PERCENT 31 % (BEAKER) (test bqqo=282) MONOCYTES RELATIVE PERCENT 7 % (BEAKER) (test iwcs=234) EOSINOPHILS RELATIVE PERCENT 2 % (BEAKER) (test rrba=521) BASOPHILS RELATIVE PERCENT 1 % (BEAKER) (test oqok=452) NEUTROPHILS ABSOLUTE COUNT 3.21 K/ L 1.80-8.00 (BEAKER) (test hydy=821) LYMPHOCYTES ABSOLUTE COUNT 1.68 K/ L 1.48-4.50 (BEAKER) (test jtxp=740) MONOCYTES ABSOLUTE COUNT 0.38 K/ L 0.00-1.30 (BEAKER) (test kogh=539) EOSINOPHILS ABSOLUTE COUNT 0.12 K/ L 0.00-0.50 (BEAKER) (test alff=848) BASOPHILS ABSOLUTE COUNT 0.05 K/ L 0.00-0.20 (BEAKER) (test xesd=660) IMMATURE GRANULOCYTES-RELATIVE 0 % 0-0 PERCENT (BEAKER) (test vvcu=0794) RAPID DRUG SCREEN, [id number] 23:37:00 Test Item Value Reference Range Comments BARBITURATE URINE (BEAKER) (test elzm=437) Negative Negative BENZODIAZEPINE SCREEN URINE (BEAKER) (test Negative Negative tyqb=642) COCAINE (METAB.) SCREEN (BEAKER) (test vvcu=8307) Negative Negative METHADONE SCREEN (BEAKER) (test jyuy=3317) Negative Negative OPIATE SCREEN URINE (BEAKER) (test jxzm=456) Negative Negative CANNABINOID SCREEN URINE (BEAKER) (test nuxg=201) Negative Negative AMPH/METHAMPH SCREEN (BEAKER) (test kdwl=1073) Positive Negative PHENCYCLIDINE SCREEN URINE (BEAKER) (test hrlp=683) Negative Negative DRUG CUTOFF CONC.Cocaine 300 ng/mL Cannabinoid 50 ng/mLBenzodiazepine 200 ng/mLBarbiturate 200 ng/ mLPhencyclidine 25 ng/mLOpiate 300 ng/mLMethadone 300 ng/mLAmphetamine/ 1000 ng/mL MethamphetamineThis assay provides an unconfirmed qualitative test result for the clinical management of patients in emergency situations. Chain of custody not maintained. Some qdqf-pfc-silyqaz medications, as well as adulterants, may cause inaccurate results. Clinical correlation should be applied. A more comprehensivedrug screen or confirmation of a detected drug may be performed upon request.BASIC METABOLIC [id number] 23:37:00 Test Item Value Reference Range Comments SODIUM (BEAKER) (test 141 meq/L 135-148 ctwt=829) POTASSIUM (BEAKER) (test 3.2 meq/L 3.5-5.5 pwbu=690) CHLORIDE (BEAKER) (test 107 meq/L 98-106 qtsz=481) CO2 (BEAKER) (test 26 meq/L 20-31 isxp=958) BLOOD UREA NITROGEN 18 mg/dL 10-26 (BEAKER) (test gjjs=941) CREATININE (BEAKER) (test 0.79 mg/dL 0.50-1.20 tmql=271) GLUCOSE RANDOM (BEAKER) 94 mg/dL 70-110 (test ineh=014) CALCIUM (BEAKER) (test 9.1 mg/dL 8.5-10.5 hukx=354) EGFR (BEAKER) (test 102 mL/min/1.73 sq m ESTIMATED GFR IS NOT cniu=6072) ACCURATE CREATININE CLEARANCE IN PREDICTING GLOMERULAR FILTRATION RATE. ESTIMATED GFR IS NOT APPLICABLE FOR DIALYSIS PATIENTS. SALICYLATE [id number] 23:28:00 Test Item Value Reference Range Comments SALICYLATE LEVEL (BEAKER) (test ohdc=739) < mg/dL 20.0-30.0 ACETAMINOPHEN [id number] 23:25:00 Test Item Value Reference Range Comments ACETAMINOPHEN LEVEL (BEAKER) (test dgry=450) 8.6 ug/mL 10.0-30.0 [id number] 23:23:00 Test Item Value Reference Range Comments ETHANOL (BEAKER) (test rjmp=204) < mg/dL <=10 CBC W/PLT COUNT & AUTO [id number] 23:03:00 Test Item Value Reference Range Comments WHITE BLOOD CELL COUNT (BEAKER) 5.5 K/ L 4.0-10.0 (test eljg=943) RED BLOOD CELL COUNT (BEAKER) 3.90 M/ L 4.20-5.80 (test tvee=547) HEMOGLOBIN (BEAKER) (test 12.3 GM/DL 13.0-16.8 enal=696) HEMATOCRIT (BEAKER) (test 37.0 % 36.0-50.0 pywo=566) MEAN CORPUSCULAR VOLUME 94.9 fL 82.0-99.0 (BEAKER) (test umdt=892) MEAN CORPUSCULAR HEMOGLOBIN 31.5 pg 27.0-33.0 (BEAKER) (test ykzf=814) MEAN CORPUSCULAR HEMOGLOBIN 33.2 GM/DL 32.0-36.0 CONC (BEAKER) (test kkpn=784) RED CELL DISTRIBUTION WIDTH 13.3 % 12.0-15.0 (BEAKER) (test hviv=358) PLATELET COUNT (BEAKER) (test 294 K/CU MM 150-430 dfzp=867) MEAN PLATELET VOLUME (BEAKER) 8.6 fL 6.0-11.5 MPV-Approximately 20% (test ofdv=593) positive bias due to method change. NUCLEATED RED BLOOD CELLS 0 /100 WBC 0-0 (BEAKER) (test fefw=217) NEUTROPHILS RELATIVE PERCENT 50 % (BEAKER) (test oevc=924) LYMPHOCYTES RELATIVE PERCENT 37 % (BEAKER) (test qzwu=587) MONOCYTES RELATIVE PERCENT 7 % (BEAKER) (test mtzv=479) EOSINOPHILS RELATIVE PERCENT 5 % (BEAKER) (test rtlg=609) BASOPHILS RELATIVE PERCENT 1 % (BEAKER) (test uvbz=081) NEUTROPHILS ABSOLUTE COUNT 2.73 K/ L 1.80-8.00 (BEAKER) (test wdnu=459) LYMPHOCYTES ABSOLUTE COUNT 2.05 K/ L 1.48-4.50 (BEAKER) (test jtdk=158) MONOCYTES ABSOLUTE COUNT 0.39 K/ L 0.00-1.30 (BEAKER) (test ksfk=627) EOSINOPHILS ABSOLUTE COUNT 0.26 K/ L 0.00-0.50 (BEAKER) (test ripn=676) BASOPHILS ABSOLUTE COUNT 0.07 K/ L 0.00-0.20 (BEAKER) (test tegl=189) IMMATURE GRANULOCYTES-RELATIVE 0 % 0-0 PERCENT (BEAKER) (test olxh=4313) COMPREHENSIVE METABOLIC [id number] 05:21:00 Test Item Value Reference Range Comments SODIUM (test code=NA) 138.0 mmol/L 133-144 POTASSIUM (test code=K) 3.8 mmol/L 3.5-5.1 CHLORIDE (test code=CL) 101 mmol/L 95-105 CARBON DIOXIDE (test 29 mmol/L 21-32 code=CO2) ANION GAP (test code=GAP) 8.0 GAP calc 4.0-15.0 GLUCOSE (test code=GLU) 124 MG/DL 70-110 BLOOD UREA NITROGEN (test 19 MG/DL 7-18 code=BUN) GLOMERULAR FILTRATION 107 estGFR >60 The estimated glomerular RATE (test code=GFR) filtration rate is computed usingpatient race, age, sex, and serum creatinine. If any of theneeded data elements are missing the Laboratory can notcompute an estimation of the glomerular filtration rate.The GFR value units=ml/min/1.73 meter squared. EstimatedGFR values above 60 should be interpreted as >60, not anexact number.--- DRUG DOSAGE ALERT --- Drug dosage adjustments utilize different calculationparameters. CREATININE (test 0.76 MG/DL 0.55-1.30 Results may be depressed code=CREAT) if patient is takingN-Acetylcysteine (NAC) and Metamizole (Dipyrone). TOTAL PROTEIN (test 7.3 G/DL 6.4-8.2 code=PROT) ALBUMIN (test code=ALB) 4.1 G/DL 3.4-5.0 ALBUMIN/GLOBULIN RATIO 1.3 RATIO 1.2-2.2 (test code=A/G) CALCIUM (test code=CA) 8.8 MG/DL 8.5-10.1 BILIRUBIN TOTAL (test 0.18 MG/DL 0.00-1.00 code=BILT) BILIRUBIN DIRECT (test < 0.10 MG/DL 0.00-0.30 code=BILD) BILIRUBIN INDIRECT (test 0.18 MG/DL 0.2-1.3 code=BILIND) SGOT/AST (test code=AST) 42 Unit/L 15-37 SGPT/ALT (test code=ALT) 46 Unit/L 12-78 ALKALINE PHOSPHATASE 108 Unit/L 45-117 TOTAL (test code=ALKP) INDEX HEMOLYSIS (test 1 NORMAL <10 MG 1 NORMAL code=HEMINDEX) Index/DL INDEX ICTERIC (test 1 NORMAL <2 MG 1 NORMAL code=ICTINDEX) Index/DL INDEX LIPEMIA (test 1 NORMAL <50 MG 1 NORMAL code=LIPINDEX) Index/DL CBC W/AUTO [id number] 04:58:00 Test Item Value Reference Range Comments WHITE BLOOD CELL (test code=WBC) 10.7 K/mm3 4.1-12.1 RED BLOOD CELL (test code=RBC) 4.34 M/mm3 3.8-5.5 HEMOGLOBIN (test code=HGB) 13.7 G/DL 10.6-15.8 HEMATOCRIT (test code=HCT) 41.2 % 36.0-47.4 MEAN CELL VOLUME (test code=MCV) 94.9 fL 80.1-101.1 MEAN CELL HGB (test code=MCH) 31.6 pg 25.3-35.3 MEAN CELL HGB CONCETRATION (test code=MCHC) 33.3 G/DL 32.7-35.1 RED CELL DISTRIBUTION WIDTH (test code=RDW) 12.9 % 12.2-16.4 RED CELL DISTRIBUTION WIDTH (test code=RDW-SD) 45.5 fL 35.1-43.9 PLATELET COUNT (test code=PLT) 328 K/mm3 155-337 MEAN PLATELET VOLUME (test code=MPV) 9.3 fL 7.6-10.4 GRANULOCYTE % (test code=GR%) 65.3 % 37.8-82.6 IMMATURE GRANULOCYTE % (test code=IG%) 0.3 % 0.0-2.0 LYMPHOCYTE % (test code=LY%) 24.7 % 14.1-45.4 MONOCYTE % (test code=MO%) 6.5 % 2.5-11.7 EOSINOPHIL % (test code=EO%) 2.3 % 0.0-6.2 BASOPHIL % (test code=BA%) 0.9 % 0.0-2.6 NUCLEATED RBC % (test code=NRBC%) 0.0 /100WBC% 0.0-1.0 GRANULOCYTE # (test code=GR#) 6.96 k/mm3 2.0-13.7 IMMATURE GRANULOCYTE # (test code=IG#) 0.03 K/mm3 0.00-0.03 LYMPHOCYTE # (test code=LY#) 2.63 K/mm3 0.6-3.8 MONOCYTE # (test code=MO#) 0.69 K/mm3 0.11-0.59 EOSINOPHIL # (test code=EO#) 0.24 K/mm3 0.0-0.4 BASOPHIL # (test code=BA#) 0.10 K/mm3 0.0-0.1 NUCLEATED RBC # (test code=NRBC#) 0.00 K/mm3 0.00-0.05 RAPID DRUG SCREEN, [id number] 10:16:00 Test Item Value Reference Range Comments BARBITURATE URINE (BEAKER) (test chaq=646) Negative Negative BENZODIAZEPINE SCREEN URINE (BEAKER) (test Negative Negative pomx=371) COCAINE (METAB.) SCREEN (BEAKER) (test kcrv=3407) Negative Negative METHADONE SCREEN (BEAKER) (test sphz=1731) Negative Negative OPIATE SCREEN URINE (BEAKER) (test ccvc=556) Negative Negative CANNABINOID SCREEN URINE (BEAKER) (test digs=101) Negative Negative AMPH/METHAMPH SCREEN (BEAKER) (test bvjm=6848) Negative Negative PHENCYCLIDINE SCREEN URINE (BEAKER) (test knol=059) Negative Negative OXYCODONE SCREEN URINE (BEAKER) (test qome=8350) Negative Negative DRUG CUTOFF CONC.Cocaine 300 ng/mL Cannabinoid 50 ng/mL Benzodiazepine 200 ng/mLBarbiturate 200 ng/ mLPhencyclidine 25 ng/mLOpiate 300 ng/mLMethadone 300 ng/mLAmphetamine/ 1000 ng/mL MethamphetamineOxycodone 300 ng/mLThis assay provides an unconfirmed qualitative test result for the clinical management of patients in emergency situations. Chain of custody not maintained. Some ikne-ayw-rpgtqzq medications, as well as adulterants, may cause inaccurate results. Clinical correlation should be applied. A more comprehensive drug screen or confirmation of a detected drug may be performed upon request.URINALYSIS W/ [id number] 08:52:00 Test Item Value Reference Range Comments COLOR (BEAKER) (test jcge=417) Yellow CLARITY (BEAKER) (test ywgu=561) Clear SPECIFIC GRAVITY UA (BEAKER) (test sdel=635) 1.013 1.001-1.035 PH UA (BEAKER) (test oniw=691) 6.0 5.0-8.0 PROTEIN UA (BEAKER) (test uvft=821) Negative Negative GLUCOSE UA (BEAKER) (test nvui=720) Negative Negative KETONES UA (BEAKER) (test xvjf=588) Negative Negative BILIRUBIN UA (BEAKER) (test scou=999) Negative Negative BLOOD UA (BEAKER) (test cyck=221) Negative Negative NITRITE UA (BEAKER) (test xsfj=638) Negative Negative LEUKOCYTE ESTERASE UA (BEAKER) (test rlrm=618) Negative Negative UROBILINOGEN UA (BEAKER) (test bcik=497) 0.2 mg/dL 0.2-1.0 RBC UA (BEAKER) (test zxgj=277) 1 /HPF WBC UA (BEAKER) (test zrzv=368) < /HPF MUCUS (BEAKER) (test uctp=6248) Rare SOURCE(BEAKER) (test hssi=2550) Urine, Voided TSH/FREE T4 IF [id number] 01:43:00 Test Item Value Reference Range Comments THYROID STIMULATING HORMONE (BEAKER) (test 1.16 uIU/mL 0.35-4.94 janh=521) HEPATIC FUNCTION [id number] 01:07:00 Test Item Value Reference Range Comments TOTAL PROTEIN (BEAKER) (test rxih=122) 6.4 gm/dL 6.0-8.3 ALBUMIN (BEAKER) (test amea=3190) 4.0 g/dL 3.5-5.0 BILIRUBIN TOTAL (BEAKER) (test bhkm=969) 0.5 mg/dL 0.2-1.2 BILIRUBIN DIRECT (BEAKER) (test jkty=042) 0.2 mg/dL 0.1-0.5 ALKALINE PHOSPHATASE (BEAKER) (test engk=717) 74 U/L 40-150 AST (SGOT) (BEAKER) (test vdec=259) 38 U/L 5-34 ALT (SGPT) (BEAKER) (test aewo=729) 47 U/L 6-55 COMPREHENSIVE METABOLIC [id number] 01:07:00 Test Item Value Reference Range Comments TOTAL PROTEIN (BEAKER) 6.4 gm/dL 6.0-8.3 (test yqls=796) ALBUMIN (BEAKER) (test 4.0 g/dL 3.5-5.0 yjuh=8013) ALKALINE PHOSPHATASE 74 U/L 40-150 (BEAKER) (test ughr=556) BILIRUBIN TOTAL (BEAKER) 0.5 mg/dL 0.2-1.2 (test sihw=643) SODIUM (BEAKER) (test 140 meq/L 136-145 onma=095) POTASSIUM (BEAKER) (test 3.8 meq/L 3.5-5.1 vnwe=758) CHLORIDE (BEAKER) (test 109 meq/L 98-107 amjw=609) CO2 (BEAKER) (test 23 meq/L 22-29 nzbo=782) BLOOD UREA NITROGEN 22 mg/dL 7-21 (BEAKER) (test wynb=823) CREATININE (BEAKER) (test 0.74 mg/dL 0.57-1.25 cqao=465) GLUCOSE RANDOM (BEAKER) 100 mg/dL 70-105 (test brcp=022) CALCIUM (BEAKER) (test 9.0 mg/dL 8.4-10.2 pqpp=723) AST (SGOT) (BEAKER) (test 38 U/L 5-34 cpwm=482) ALT (SGPT) (BEAKER) (test 47 U/L 6-55 olly=795) EGFR (BEAKER) (test 111 mL/min/1.73 sq ESTIMATED GFR IS NOT kknb=8493) m ACCURATE CREATININE CLEARANCE IN PREDICTING GLOMERULAR FILTRATION RATE. ESTIMATED GFR IS NOT APPLICABLE FOR DIALYSIS PATIENTS. [id number] 01:03:00 Test Item Value Reference Range Comments ETHANOL (BEAKER) (test cstf=828) < mg/dL <=10 LACTIC ACID, VENOUS, WHOLE [id number] 01:01:00 Test Item Value Reference Range Comments LACTATE BLOOD VENOUS (2) (BEAKER) (test 0.5 mmol/L 0.5-2.2 fmjt=7227) Effective 09/22/2015: Units/Reference Range ChangeNew: 0.5-2.2 mmol/L Previous: 5 -20 mg/dLCBC W/PLT COUNT & AUTO [id number] 00:51:00 Test Item Value Reference Range Comments WHITE BLOOD CELL COUNT (BEAKER) (test lwmd=967) 8.1 K/ L 3.5-10.5 RED BLOOD CELL COUNT (BEAKER) (test zviq=699) 3.77 M/ L 4.63-6.08 HEMOGLOBIN (BEAKER) (test sybg=819) 11.6 GM/DL 13.7-17.5 HEMATOCRIT (BEAKER) (test tfvw=192) 35.8 % 40.1-51.0 MEAN CORPUSCULAR VOLUME (BEAKER) (test xrvq=442) 95.0 fL 79.0-92.2 MEAN CORPUSCULAR HEMOGLOBIN (BEAKER) (test 30.8 pg 25.7-32.2 wkje=900) MEAN CORPUSCULAR HEMOGLOBIN CONC (BEAKER) (test 32.4 GM/DL 32.3-36.5 vlqk=860) RED CELL DISTRIBUTION WIDTH (BEAKER) (test 13.8 % 11.6-14.4 axub=318) PLATELET COUNT (BEAKER) (test yncq=596) 261 K/CU MM 150-450 MEAN PLATELET VOLUME (BEAKER) (test mtmf=779) 9.0 fL 9.4-12.4 NUCLEATED RED BLOOD CELLS (BEAKER) (test 0 /100 WBC 0-0 ofzz=225) NEUTROPHILS RELATIVE PERCENT (BEAKER) (test 68 % xywv=151) LYMPHOCYTES RELATIVE PERCENT (BEAKER) (test 23 % dgzc=450) MONOCYTES RELATIVE PERCENT (BEAKER) (test 6 % pewu=270) EOSINOPHILS RELATIVE PERCENT (BEAKER) (test 2 % glrm=162) BASOPHILS RELATIVE PERCENT (BEAKER) (test 1 % sazv=031) NEUTROPHILS ABSOLUTE COUNT (BEAKER) (test 5.48 K/ L 1.78-5.38 nwnb=418) LYMPHOCYTES ABSOLUTE COUNT (BEAKER) (test 1.82 K/ L 1.32-3.57 iobt=288) MONOCYTES ABSOLUTE COUNT (BEAKER) (test 0.49 K/ L 0.30-0.82 akdl=139) EOSINOPHILS ABSOLUTE COUNT (BEAKER) (test 0.17 K/ L 0.04-0.54 pzmr=300) BASOPHILS ABSOLUTE COUNT (BEAKER) (test 0.09 K/ L 0.01-0.08 ueru=258) IMMATURE GRANULOCYTES-RELATIVE PERCENT (BEAKER) 0 % 0-1 (test eflg=4166) POCT-GLUCOSE [id number] 00:47:00 Test Item Value Reference Range Comments POC-GLUCOSE METER (BEAKER) 111 mg/dL 70-110 TESTED AT [facility] [address] (test weve=0782) [facility] [id number]
[2018-11-12] MEDS ORDERED: NA CHLORIDE 0.9% 1,000 ML ONE (03:16)
[2018-11-12 03:29] LABS: Absolute Lymphocytes (CBC) 1.9 K/uL (0.7-4.9); Basophils % 1.2 % (0-1.3); Eosinophils % 5.2 % (0-4.4); Hematocrit 37.5 % (39.6-49.0); Lymphocytes % 31.4 % (15.3-44.8); MPV 7.7 fL (7.6-11.3); Monocytes % 7.8 % (3.3-12.3); RBC Red Blood Cell Count 4.04 M/uL (4.33-5.43)
[2018-11-12 03:32] LABS: Protime INR 0.92
[2018-11-12 03:52] LABS: ALT/SGPT 22 U/L (12-78); AST/SGOT 24 U/L (15-37); Albumin 3.8 g/dL (3.4-5.0); Alkaline Phosphatase 82 U/L (45-117); BUN Blood Urea Nitrogen 13 mg/dL (7-18); Bicarbonate 29 mmol/L (21-32); Bilirubin Direct < 0.1 mg/dL (0-0.2); Bilirubin Total 0.3 mg/dL (0.2-1.0); Glucose Level 92 mg/dL (74-106); Potassium 3.4 mmol/L (3.5-5.1); Sodium Level 143 mmol/L (136-145)
--- NOTE | 2018-11-12 04:29 | EDPHYS ---
Physician Documentation [facility] Name: John Richards Age: 53 yrs Sex: Male : 1965 Arrival Date: 11/12/2018 Time: 02:26 Bed 8 Private MD: ED Physician Danny Howe HPI: 11/12 02:27 This 53 yrs old Male presents to ER via Unassigned with complaints of upset, kamille suicidal and hungry. 02:27 The patient presents to the emergency department with depression, suicide ideation. kamille Onset: The symptoms/episode began/occurred today, yesterday. Past psychiatric history: Prior diagnosis: no previous psychiatric diagnosis known, depression, Psychiatric medications include: none. having a heard time getting housing. Associated signs and symptoms: The patient has no apparent associated signs or symptoms. Severity of symptoms: At their worst the symptoms were mild in the emergency department the symptoms are unchanged. The patient has experienced similar episodes in the past, several times. Historical: - Allergies: 02:55 No Known Allergies; lp1 - Home Meds: 02:55 None [Active]; lp1 - PMHx: 02:55 Chronic pain; Hernia; Depression; Bipolar disorder; Schizophrenia; PTSD; lp1 - PSHx: 02:55 None; lp1 - Immunization history:: Adult Immunizations unknown. - Family history:: not pertinent. - Social history:: Smoking status: Patient uses tobacco products, smokes one pack cigarettes per day. - Ebola Screening: : No symptoms or risks identified at this time. ROS: 02:27 Constitutional: Negative for fever, chills, and weight loss, Eyes: Negative for injury, kamille pain, redness, and discharge, ENT: Negative for injury, pain, and discharge, Neck: Negative for injury, pain, and swelling, Cardiovascular: Negative for chest pain, palpitations, and edema, Respiratory: Negative for shortness of breath, cough, wheezing, and pleuritic chest pain, Back: Negative for injury and pain, : Negative for injury, bleeding, discharge, and swelling, MS/Extremity: Negative for injury and deformity, Skin: Negative for injury, rash, and discoloration, Neuro: Negative for headache, weakness, numbness, tingling, and seizure, Psych: Negative for depression, anxiety, suicide ideation, homicidal ideation, and hallucinations, Allergy/Immunology: Negative for hives, rash, and allergies, Endocrine: Negative for neck swelling, polydipsia, polyuria, polyphagia, and marked weight changes. 02:27 Abdomen/GI: Negative for abdominal pain, nausea, vomiting, diarrhea, and constipation. 02:27 Abdomen/GI: 02: Psych: Positive for anxiety, depression, suicidal ideation. Exam: 02:27 Constitutional: This is a well developed, well nourished patient who is awake, alert, kamille and in no acute distress. Head/Face: Normocephalic, atraumatic. Eyes: Pupils equal round and reactive to light, extra-ocular motions intact. Lids and lashes normal. Conjunctiva and sclera are non-icteric and not injected. Cornea within normal limits. Periorbital areas with no swelling, redness, or edema. ENT: Nares patent. No nasal discharge, no septal abnormalities noted. Tympanic membranes are normal and external auditory canals are clear. Oropharynx with no redness, swelling, or masses, exudates, or evidence of obstruction, uvula midline. Mucous membranes moist. Neck: Trachea midline, no thyromegaly or masses palpated, and no cervical lymphadenopathy. Supple, full range of motion without nuchal rigidity, or vertebral point tenderness. No Meningismus. Chest/axilla: Normal chest wall appearance and motion. Nontender with no deformity. No lesions are appreciated. Cardiovascular: Regular rate and rhythm with a normal S1 and S2. No gallops, murmurs, or rubs. Normal PMI, no JVD. No pulse deficits. Respiratory: Lungs have equal breath sounds bilaterally, clear to auscultation and percussion. No rales, rhonchi or wheezes noted. No increased work of breathing, no retractions or nasal flaring. Abdomen/GI: Soft, non-tender, with normal bowel sounds. No distension or tympany. No guarding or rebound. No evidence of tenderness throughout. Back: No spinal tenderness. No costovertebral tenderness. Full range of motion. Skin: Warm, dry with normal turgor. Normal color with no rashes, no lesions, and no evidence of cellulitis. MS/ Extremity: Pulses equal, no cyanosis. Neurovascular intact. Full, normal range of motion. Neuro: Awake and alert, GCS 15, oriented to person, place, time, and situation. Cranial nerves II-XII grossly intact. Motor strength 5/5 in all extremities. Sensory grossly intact. Cerebellar exam normal. Normal gait. Psych: Awake, alert, with orientation to person, place and time. Behavior, mood, and affect are within normal limits. 07:19 Psych: Behavior/mood is pleasant, cooperative, Affect is calm, Oriented to person, kamille place, time, Patient has no thoughts/intents to harm self or others. Judgement / Insight is normal. Memory is normal. Delusions/hallucinations are not present. not homicidal , not suicidal. Vital Signs: 02:15 BP 107 / 73; Pulse 69; Resp 16; Temp 98; Pulse Ox 99% on R/A; Weight 58.97 kg; Height 5 lp1 ft. 7 in. (170.18 cm); Pain 0/10; 04:00 BP 94 / 58; Pulse 68; Resp 16; Pulse Ox 100% on R/A; lp1 06:00 BP 102 / 67; Pulse 71; Resp 16; Pulse Ox 97% on R/A; Pain 0/10; lp1 07:50 BP 104 / 70; Pulse 61; Resp 16; Pulse Ox 100% on R/A; Pain 0/10; sg 02:15 Body Mass Index 20.36 (58.97 kg, 170.18 cm) lp1 MDM: 02:26 Patient medically screened. [facility] 02:31 Data reviewed: vital signs, nurses notes, lab test result(s), EKG. [facility] 11/12 02:27 Order name: Acetaminophen 11/12 02:27 Order name: Basic Metabolic Panel 11/12 02:27 Order name: CBC with Diff; Complete Time: 04:22 [facility] 11/12 02:27 Order name: ETOH Level; Complete Time: 04:22 [facility] 11/12 02:27 Order name: Hepatic Function; Complete Time: 04:22 [facility] 11/12 02:27 Order name: PT-INR; Complete Time: 04:22 11/12 02:27 Order name: Ptt, Activated; Complete Time: 04:22 [facility] 11/12 02:27 Order name: Salicylate; Complete Time: 04:22 [facility] 11/12 02:27 Order name: EKG; Complete Time: 02:34 11/12 02:27 Order name: Diet Regular; Complete Time: 02:39 [facility] 11/12 02:28 Order name: Acetaminophen Level; Complete Time: 04:22 [facility] 11/12 02:28 Order name: Basic Metabolic Panel; Complete Time: 04:22 [facility] 11/12 02:27 Order name: EKG - Nurse/Tech; Complete Time: 02:59 [facility] 11/12 02:27 Order name: IV Saline Lock; Complete Time: 02:59 [facility] 11/12 02:27 Order name: Labs collected and sent; Complete Time: 02:59 [facility] 11/12 04:27 Order name: PO challenge: juice; Complete Time: 04:29 [facility] 11/12 07:40 Order name: Diet Regular; Complete Time: 07:41 ph Administered Medications: 02:59 Drug: NS 0.9% 1000 ml Route: IV; Rate: 1 bolus; Site: right antecubital; lp1 03:45 Follow up: IV Status: Completed infusion; IV Intake: 1000ml lp1 Disposition: 11/12/18 04:27 Discharged to Home. Impression: Major depressive disorder, recurrent, Suicidal ideations, Hypokalemia. - Condition is Stable. - Discharge Instructions: Potassium Content of Foods, Suicidal Feelings: How to Help Yourself, Helping Someone Who is Suicidal, Stress and Stress Management, Hypokalemia. - Medication Reconciliation Form, Thank You Letter, Antibiotic Education, Prescription Opioid Use form. - Follow up: Private Physician; When: 2 - 3 days; Reason: Recheck today's complaints, Continuance of care, Re-evaluation by your physician. - Problem is new. - Symptoms have improved. Signatures: Dispatcher [employer] [facility] Danny Howe MD MD cha Pena, Laura RN RN lp1 Erin Landin RN RN ph Corrections: (The following items were deleted from the chart) 11:25 04:27 11/12/2018 04:27 Discharged to Home. Impression: Major depressive disorder, ph recurrent; Suicidal ideations; Hypokalemia. Condition is Stable. Discharge Instructions: Suicidal Feelings: How to Help Yourself, Helping Someone Who is Suicidal, Stress and Stress Management. Forms are Medication Reconciliation Form, Thank You Letter, Antibiotic Education, Prescription Opioid Use. Follow up: Private Physician; When: 2 - 3 days; Reason: Recheck today's complaints, Continuance of care, Re-evaluation by your physician. Problem is new. Symptoms have improved. kamille
--- NOTE | 2018-11-12 04:29 | ER ---
Nurse's Notes [facility] Name: John Richards Age: 53 yrs Sex: Male : 1965 Arrival Date: 11/12/2018 Time: 02:26 Bed 8 Private MD: Diagnosis: Major depressive disorder, recurrent;Suicidal ideations;Hypokalemia Presentation: 11/12 02:15 Presenting complaint: EMS states: Patient brought to EMS station by [employer]; lp1 Patient was found walking down the street, states SI with plan to jump off of bridge due to financial struggles and no place to live. Transition of care: patient was not received from another setting of care. Onset of symptoms was November 12, 2018. 02:15 Method Of Arrival: EMS: [facility] lp1 02:15 Acuity: VICTOR HUGO 2 lp1 02:15 Initial Sepsis Screen: Does the patient meet any 2 criteria? No. Patient's initial lp1 sepsis screen is negative. Does the patient have a suspected source of infection? No. Patient's initial sepsis screen is negative. Note Patient states "I've haven't eaten anything since you guys discharged me this morning, I'm hungry and I have been out in the heat and rain all day today, I'm just exhausted". Care prior to arrival: None. 02:51 Risk Assessment: Do you want to hurt yourself or someone else? Patient reports no lp1 desire to harm self or others. Other: Patient denies SI at this time; MD at bedside to discuss care with patient; SI resolved at this time. Historical: - Allergies: 02:55 No Known Allergies; lp1 - Home Meds: 02:55 None [Active]; lp1 - PMHx: 02:55 Chronic pain; Hernia; Depression; Bipolar disorder; Schizophrenia; PTSD; lp1 - PSHx: 02:55 None; lp1 - Immunization history:: Adult Immunizations unknown. - Family history:: not pertinent. - Social history:: Smoking status: Patient uses tobacco products, smokes one pack cigarettes per day. - Ebola Screening: : No symptoms or risks identified at this time. Screenin:54 Abuse screen: Denies threats or abuse. Denies injuries from another. Nutritional lp1 screening: No deficits noted. Tuberculosis screening: No symptoms or risk factors identified. Fall Risk None identified. Assessment: 02:30 General: Appears in no apparent distress. Behavior is calm, cooperative, appropriate lp1 for age. Pain: Denies pain. Neuro: Level of Consciousness is awake, alert, obeys commands. Cardiovascular: Patient's skin is warm and dry. Respiratory: Respiratory effort is even, unlabored. GI: Abdomen is flat. : No signs and/or symptoms were reported regarding the genitourinary system. EENT: No signs and/or symptoms were reported regarding the EENT system. Derm: Skin is intact, Skin is dry, Skin is normal. Musculoskeletal: No deficits noted. 02:54 Reassessment: Patient appears in no apparent distress at this time. Patient given lp1 sandwich and juice per request. General: Behavior is calm, cooperative. 04:00 Reassessment: Patient appears in no apparent distress at this time. Patient and/or lp1 family updated on plan of care and expected duration. Pain level reassessed. Patient resting, eyes closed, respirations unlabored. 04:30 Reassessment: Patient resting, eyes closed, respirations unlabored; Aware of discharge, lp1 will discharge later this morning so patient can call for ride. 06:00 Reassessment: Patient states he cannot call for his ride until 0800 this morning. lp1 11:11 Reassessment: patient given socks and bandages for feet upon discharge per patient ss request. Pt is thankful for care recieved. Vital Signs: 02:15 BP 107 / 73; Pulse 69; Resp 16; Temp 98; Pulse Ox 99% on R/A; Weight 58.97 kg; Height 5 lp1 ft. 7 in. (170.18 cm); Pain 0/10; 04:00 BP 94 / 58; Pulse 68; Resp 16; Pulse Ox 100% on R/A; lp1 06:00 BP 102 / 67; Pulse 71; Resp 16; Pulse Ox 97% on R/A; Pain 0/10; lp1 07:50 BP 104 / 70; Pulse 61; Resp 16; Pulse Ox 100% on R/A; Pain 0/10; sg 02:15 Body Mass Index 20.36 (58.97 kg, 170.18 cm) lp1 ED Course: 02:20 Patient has correct armband on for positive identification. Valuables inventory done. lp1 See valuables checklist. 02:26 Patient arrived in ED. kamille 02:26 Danny Howe MD is Attending Physician. kamille 02:48 Lola Donaldson, RN is Primary Nurse. lp1 02:53 Triage completed. lp1 02:53 Arm band placed on right wrist. lp1 02:58 Inserted saline lock: 20 gauge in right antecubital area, using aseptic technique. lp1 Blood collected. By lila Roland. 04:30 No provider procedures requiring assistance completed. lp1 06:00 IV discontinued, No redness/swelling at site. Pressure dressing applied. lp1 Administered Medications: 02:59 Drug: NS 0.9% 1000 ml Route: IV; Rate: 1 bolus; Site: right antecubital; lp1 03:45 Follow up: IV Status: Completed infusion; IV Intake: 1000ml lp1 Intake: 03:45 IV: 1000ml; Total: 1000ml. lp1 Outcome: 04:27 Discharge ordered by . [facility] 11:10 Discharged to home ambulatory. 11:10 Condition: good 11:10 Discharge instructions given to patient, Instructed on discharge instructions, follow up and referral plans. medication usage, Demonstrated understanding of instructions, follow-up care. 11:25 Patient left the ED. ph Signatures: Danyel Moody, RN RN Danny Howe MD MD cha Smirch, Shelby, RN RN Lola Donaldson, RN RN 1 Erin Landin RN RN
--- NOTE | 2018-11-12 14:49 | EKG ---
Test Date: 2018-11-12 Test Time: 02:42:12 [facility]: [facility]LAY MEASUREMENT RESULTS: Intervals: Rate: 61 MA: 146 QRSD: 110 QT: 420 QTc: 422 [place]: P: 77 MA: 146 QRS: 75 T: 72 INTERPRETIVE STATEMENTS: Sinus rhythm with marked sinus arrhythmia Incomplete right bundle branch block Borderline ECG No previous ECG available for comparison Electronically Signed On 11-12-18 14:47:19 CDT by Codey Jean
== END 2018-11-12 11:25 | disposition home or self-care (01) ==
LOC: ER 02:18
DX: R45.851 Suicidal ideations (principal); F33.9 Major depressive disorder, recurrent, unspecified; E87.6 Hypokalemia; F31.9 Bipolar disorder, unspecified; F20.9 Schizophrenia, unspecified; F17.210 Nicotine dependence, cigarettes, uncomplicated
CPT/HCPCS: 93005; 85025; 80048; 36415; 80320; 80329 ×2; 85610; 80076; 85730; J7030; 96360; 99284

== ENCOUNTER 2018-11-13 02:12 | Emergency (ER) | payer OTHER ==
--- OUTSIDE RECORDS SUMMARY | 2018-11-13 02:15 | XMS REPORT | Clinical Summary ---
:1965 Author Organization Formerly [facility] Address [address] [place] [address] Care Team Providers Name Role Phone Pcp, [...] Only General Internal Medicine 08/13/2018 Travel after 11/12/2017 Social History Tobacco Use Types Packs/Day Years [...] 388 ms QTC Calculation(Bazett) 455 ms P [place] 80 degrees R [place] 68 degrees T [place] 68 degrees Normal sinus rhythm Incomplete right [...] 416 ms QTC Calculation(Bazett) 422 ms P [place] 82 degrees R [place] 85 degrees T [place] 79 degrees Normal sinus rhythm Incomplete right [...] 416 ms QTC Calculation(Bazett) 408 ms P [place] 76 degrees R [place] 76 degrees T [place] 74 degrees Sinus bradycardia Otherwise normal ECG No previous ECGs available ECG 12-LEAD STAT 08/13/2018 10:51 PM CDT after 11/12/2017 Results Rapid drug screen, urine (11/08/2018 11:52 PM CDT)Only the most recent of3 resultswithin the time period is included. Barbiturate Screen Negative Negative [facility] Benzodiazepine Screen Positive (A) Negative [facility] Cocaine (Metab.) Screen Negative Negative [facility] Methadone Screen Negative Negative [facility] Opiate Screen Negative Negative [facility] Cannabinoid Screen Negative Negative [facility] Amph/Methamph Screen Positive (A) Negative [facility] Phencyclidine Screen Negative Negative [facility] Specimen Urine Narrative Performed At [facility] Cocaine 300 ng/mL Gucdoniggng38 ng/mL Pwzspnlixebdin059 ng/mL Barbiturate 200 ng/mL Icauvmwscchxg94 ng/mL Fjargj496 ng/mL Methadone 300 ng/mL Amphetamine/ 1000 ng/mL Methamphetamine This assay provides an unconfirmed qualitative test result for the clinical management of patients in emergency situations. Chain of custody not maintained. Some isce-smx-dhjvksx medications, as well as adulterants, may cause inaccurate results. Clinical correlation should be applied. A more comprehensive drug screen or confirmation of a detected drug may be performed upon request. Performing Organization Address City/[facility] [email or web address] Phone Number [facility] [address] [place] [address] CBC with platelet count + automated diff (11/08/2018 11:08 PM CDT)Only the most recent of3 resultswithin the time period is included. WBC 9.0 4.0 - 10.0 K/L [facility] RBC 3.91 (L) 4.20 - 5.80 M/L [facility] Hemoglobin 12.0 (L) 13.0 - 16.8 GM/DL [facility] Hematocrit 36.3 36.0 - 50.0 % [facility] MCV 92.8 82.0 - 99.0 fL [facility] MCH 30.7 27.0 - 33.0 pg [facility] MCHC 33.1 32.0 - 36.0 GM/DL [facility] RDW 12.9 12.0 - 15.0 % [facility] Platelets 315 150 - 430 K/CU MM [facility] MPV 9.0Comment: 6.0 - 11.5 fL [facility] MPV-Approximately 20% positive bias due to method change. nRBC 0 0 - 0 /100 WBC [facility] % Neutros 64 % [facility] % Lymphs 23 % [facility] % Monos 9 % [facility] % Eos 3 % [facility] % Baso 1 % [facility] # Neutros 5.81 1.80 - 8.00 K/L [facility] # Lymphs 2.03 1.48 - 4.50 K/L [facility] # Monos 0.81 0.00 - 1.30 K/L [facility] # Eos 0.25 0.00 - 0.50 K/L [facility] # Baso 0.10 0.00 - 0.20 K/L [facility] Immature 0 0 - 0 % [facility] Granulocytes-Relative Specimen Blood Performing Organization Address City/[facility] [email or web address] Phone Number [facility] [address] [place] [address] Phosphorus (11/08/2018 11:08 PM CDT) Phosphorus 3.2 2.5 - 4.5 mg/dL [facility] Specimen Blood Performing Organization Address [facility] Phone Number [facility] [address] [place] [address] Magnesium (11/08/2018 11:08 PM CDT) Magnesium 2.1 1.5 - 3.0 mg/dL [facility] Specimen Blood Performing Organization Address [facility] Phone Number [facility] [address] [place] [address] Ethanol (11/08/2018 11:08 PM CDT)Only the most recent of3 resultswithin the time period is included. Ethanol Lvl <10 <=10 mg/dL [facility] Specimen Blood Performing Organization Address [facility] [address] [place] [address] Acetaminophen level (11/08/2018 11:08 PM CDT)Only the most recent of3 resultswithin the time period is included. Acetaminophen Level 9.4 (L) 10.0 - 30.0 ug/mL [facility] Specimen Blood Performing Organization Address [facility] Number [facility] [address] [place] [address] [phone] Salicylate level (11/08/2018 11:08 PM CDT)Only the most recent of3 resultswithin the time period is included. Salicylate Lvl <5.0 (L) 20.0 - 30.0 mg/dL [facility] Specimen Blood Performing Organization Address [facility] Phone Number [facility] [address] [place] [address] Hepatic function panel (11/08/2018 11:08 PM CDT) Protein, Total 6.6 6.0 - 8.5 gm/dL [facility] Albumin 4.0 3.5 - 5.0 g/dL [facility] Total Bilirubin 0.3 0.1 - 1.3 mg/dL [facility] Bilirubin, Direct 0.1 0.0 - 0.5 mg/dL [facility] Alkaline Phosphatase 81 30 - 115 U/L [facility] AST 22 5 - 40 U/L [facility] ALT 15 6 - 50 U/L [facility] Specimen Blood Performing Organization Address [facility] [email or web address] Phone Number [facility] [address] [place] [address] [phone] Basic Metabolic Panel (11/08/2018 11:08 PM CDT)Only the most recent of2 resultswithin the time period is included. Sodium 137 135 - 148 meq/L [facility] Potassium 3.6 3.5 - 5.5 meq/L [facility] Chloride 104 98 - 106 meq/L [facility] CO2 23 20 - 31 meq/L [facility] BUN 30 (H) 10 - 26 mg/dL [facility] Creatinine 0.91 0.50 - 1.20 mg/dL [facility] Glucose 126 (H) 70 - 110 mg/dL [facility] Calcium 8.7 8.5 - 10.5 mg/dL [facility] EGFR 87Comment: ESTIMATED GFR IS NOT mL/min/1.73 sq m [facility] ACCURATE CREATININE CLEARANCE IN PREDICTING GLOMERULAR FILTRATION RATE. ESTIMATED GFR IS NOT APPLICABLE FOR DIALYSIS PATIENTS. Specimen Blood Performing Organization Address [facility] Phone Number [facility] [address] [place] [address] ECG 12 lead (11/08/2018 11:02 PM CDT)Only the most recent of3 resultswithin the time period is included. Specimen Narrative Performed At Ventricular Rate 83 BPM GE MUSE Atrial Rate 83 BPM P-R Interval 156 ms QRS Duration 106 ms Q-T Interval 388 ms QTC Calculation(Bazett) 455 ms P [place] 80 degrees R [place] 68 degrees T [place] 68 degrees Normal sinus rhythm Incomplete right bundle branch block Borderline ECG Procedure Note Interface, External Ris In - 11/10/2018 4:36 PM CDT Ventricular Rate 83 BPM Atrial Rate 83 BPM P-R Interval 156 ms QRS Duration 106 ms Q-T Interval 388 ms QTC Calculation(Bazett) 455 ms P [place] 80 degrees R [place] 68 degrees T [place] 68 degrees Normal sinus rhythm Incomplete right bundle branch block Borderline ECG Performing Organization Address [facility] Phone Number GE MUSE EKG-SCANNED (09/17/2018 8:51 AM CDT)Only the most recent of2 resultswithin the time period is included. Narrative Performed At Urinalysis w/Microscopic + Reflex to Culture (09/12/2018 1:08 AM CDT) Color, UA Yellow [facility] Clarity, UA Clear [facility] Specific [place], UA 1.015 1.001 - 1.035 [facility] pH, UA 6.0 5.0 - 8.0 [facility] Protein, UA Negative Negative [facility] Glucose, UA Negative Negative [facility] Ketones, UA 20 mg/dL (A) Negative [facility] Bilirubin, UA Negative Negative [facility] Blood, UA Negative Negative [facility] Nitrite, UA Negative Negative [facility] Leukocytes, UA Small (A) Negative [facility] Urobilinogen, UA 2.0 (H) 0.2 - 1.0 mg/dL [facility] RBC, UA 4 /HPF [facility] WBC, UA 21 /HPF [facility] Bacteria, UA Few [facility] Mucus Moderate [facility] Squam Epithel, UA <1 /HPF [facility] Specimen Source [facility] Specimen Urine Performing Organization Address [facility] Phone Number [facility] [address] [place] [address] Urine culture (09/12/2018 1:08 AM CDT) Result 60-69,000 col/mL skin bhupendra [facility] Specimen Urine Performing Organization Address [facility] Phone Number [facility] [address] [place] [address] Lipase (09/11/2018 10:11 PM CDT) Lipase 17 8 - 78 U/L [facility] Specimen Blood Performing Organization Address [facility] Phone Number [facility] [address] [place] [address] [phone] Comprehensive metabolic panel (09/11/2018 10:11 PM CDT) Protein, Total 7.2Comment: Specimen 6.0 - 8.5 gm/dL [facility] markedly hemolyzed Albumin 4.1Comment: Specimen 3.5 - 5.0 g/dL [facility] markedly hemolyzed Alkaline Phosphatase 76 30 - 115 U/L [facility] Total Bilirubin 0.5Comment: Specimen 0.1 - 1.3 mg/dL [facility] markedly hemolyzed Sodium 139 135 - 148 meq/L [facility] Potassium 4.9Comment: Specimen 3.5 - 5.5 meq/L [facility] markedly hemolyzed Chloride 106 98 - 106 meq/L [facility] CO2 23 20 - 31 meq/L [facility] BUN 7 (L) 10 - 26 mg/dL [facility] Creatinine 0.83Comment: Specimen 0.50 - 1.20 mg/dL [facility] markedly hemolyzed Glucose 82 70 - 110 mg/dL [facility] Calcium 9.5 8.5 - 10.5 mg/dL [facility] AST 37Comment: Specimen 5 - 40 U/L [facility] markedly hemolyzed ALT 23Comment: Specimen 6 - 50 U/L [facility] markedly hemolyzed EGFR 97Comment: ESTIMATED GFR mL/min/1.73 sq m [facility] IS NOT ACCURATE CREATININE CLEARANCE IN PREDICTING GLOMERULAR FILTRATION RATE. ESTIMATED GFR IS NOT APPLICABLE FOR DIALYSIS PATIENTS. Specimen Blood Performing Organization Address City/State/Zipcode Phone Number [facility] [address] [place] [address] ECG/EKG Interpretation (09/11/2018 8:44 PM CDT)Only the [...] RBBB. ST segments normal. T waves normal. [place] is normal. Other findings: no other findings. Right sided lead use: right-sided leads not used. Left sided lead use: Posterior leads were not used. Clinical Impression: abnormal ECGECG reviewed and does not meet STEMI criteria. Patient tolerance: Patient tolerated the procedure well with no immediate complications after 11/12/2017 Insurance Payer Benefit Plan / Group Subscriber ID Type Phone Address [facility]
--- OUTSIDE RECORDS SUMMARY | 2018-11-13 02:16 | XMS REPORT ---
:1965 [facility] Address [address] [place] [address] Care Team Providers Name Role Phone ISIAH [...] Reference Range Comments BARBITURATE URINE (BEAKER) (test aivd=163) Negative Negative BENZODIAZEPINE SCREEN URINE (BEAKER) (test cryu=483) Positive Negative COCAINE (METAB.) SCREEN (BEAKER) (test osum=6835) Negative Negative METHADONE SCREEN (BEAKER) (test pqyh=5108) Negative Negative OPIATE SCREEN URINE (BEAKER) (test hyac=114) Negative Negative CANNABINOID SCREEN URINE (BEAKER) (test wfwv=226) Negative Negative AMPH/METHAMPH SCREEN (BEAKER) (test nkov=8668) Positive Negative PHENCYCLIDINE SCREEN URINE (BEAKER) (test xdll=621) Negative Negative DRUG CUTOFF CONC.Cocaine 300 ng/mL Cannabinoid 50 ng/mLBenzodiazepine 200 ng/mLBarbiturate 200 ng/ mLPhencyclidine 25 ng/mLOpiate 300 ng/mLMethadone 300 ng/mLAmphetamine/ 1000 ng/mL MethamphetamineThis assay provides an unconfirmed qualitative test result for the clinical management of patients in emergency situations. Chain of custody not maintained. Some cxek-eeq-mrrqtty medications, as well as adulterants, may cause inaccurate results. Clinical correlation should be applied. A more comprehensivedrug screen or confirmation of a detected drug may be performed upon request.[id number] 23:53:00 Test Item Value Reference Range Comments ETHANOL (BEAKER) (test ayhj=503) < mg/dL <=10 [id number] 23:41:00 Test Item Value Reference Range Comments PHOSPHORUS (BEAKER) (test oniz=192) 3.2 mg/dL 2.5-4.5 [id number] 23:41:00 Test Item Value Reference Range Comments MAGNESIUM (BEAKER) (test zkse=283) 2.1 mg/dL 1.5-3.0 BASIC METABOLIC [id number] 23:41:00 Test Item Value Reference Range Comments SODIUM (BEAKER) (test 137 meq/L 135-148 flur=273) POTASSIUM (BEAKER) (test 3.6 meq/L 3.5-5.5 zoap=061) CHLORIDE (BEAKER) (test 104 meq/L 98-106 urtc=302) CO2 (BEAKER) (test 23 meq/L 20-31 aqkc=920) BLOOD UREA NITROGEN 30 mg/dL 10-26 (BEAKER) (test hwxj=241) CREATININE (BEAKER) (test 0.91 mg/dL 0.50-1.20 xujw=335) GLUCOSE RANDOM (BEAKER) 126 mg/dL 70-110 (test deup=015) CALCIUM (BEAKER) (test 8.7 mg/dL 8.5-10.5 zzwz=567) EGFR (BEAKER) (test 87 mL/min/1.73 sq m ESTIMATED GFR IS NOT chta=6194) ACCURATE CREATININE CLEARANCE IN PREDICTING GLOMERULAR FILTRATION RATE. ESTIMATED GFR IS NOT APPLICABLE FOR DIALYSIS PATIENTS. HEPATIC FUNCTION [id number] 23:41:00 Test Item Value Reference Range Comments TOTAL PROTEIN (BEAKER) (test mbzc=643) 6.6 gm/dL 6.0-8.5 ALBUMIN (BEAKER) (test yuwq=7095) 4.0 g/dL 3.5-5.0 BILIRUBIN TOTAL (BEAKER) (test tomu=134) 0.3 mg/dL 0.1-1.3 BILIRUBIN DIRECT (BEAKER) (test fqoo=843) 0.1 mg/dL 0.0-0.5 ALKALINE PHOSPHATASE (BEAKER) (test eyuc=161) 81 U/L 30-115 AST (SGOT) (BEAKER) (test pcyc=628) 22 U/L 5-40 ALT (SGPT) (BEAKER) (test izcy=448) 15 U/L 6-50 SALICYLATE [id number] 23:39:00 Test Item Value Reference Range Comments SALICYLATE LEVEL (BEAKER) (test admu=436) < mg/dL 20.0-30.0 ACETAMINOPHEN [id number] 23:38:00 Test Item Value Reference Range Comments ACETAMINOPHEN LEVEL (BEAKER) (test bsoz=324) 9.4 ug/mL 10.0-30.0 CBC W/PLT COUNT & AUTO [id number] 23:15:00 Test Item Value Reference Range Comments WHITE BLOOD CELL COUNT (BEAKER) 9.0 K/ L 4.0-10.0 (test hcqn=023) RED BLOOD CELL COUNT (BEAKER) 3.91 M/ L 4.20-5.80 (test axgd=375) HEMOGLOBIN (BEAKER) (test 12.0 GM/DL 13.0-16.8 wexv=406) HEMATOCRIT (BEAKER) (test 36.3 % 36.0-50.0 mxqq=171) MEAN CORPUSCULAR VOLUME 92.8 fL 82.0-99.0 (BEAKER) (test odva=849) MEAN CORPUSCULAR HEMOGLOBIN 30.7 pg 27.0-33.0 (BEAKER) (test fkdr=435) MEAN CORPUSCULAR HEMOGLOBIN 33.1 GM/DL 32.0-36.0 CONC (BEAKER) (test pqvg=101) RED CELL DISTRIBUTION WIDTH 12.9 % 12.0-15.0 (BEAKER) (test zspf=470) PLATELET COUNT (BEAKER) (test 315 K/CU MM 150-430 qqdx=456) MEAN PLATELET VOLUME (BEAKER) 9.0 fL 6.0-11.5 MPV-Approximately 20% (test ghnf=193) positive bias due to method change. NUCLEATED RED BLOOD CELLS 0 /100 WBC 0-0 (BEAKER) (test shvw=661) NEUTROPHILS RELATIVE PERCENT 64 % (BEAKER) (test pzlj=509) LYMPHOCYTES RELATIVE PERCENT 23 % (BEAKER) (test wuix=986) MONOCYTES RELATIVE PERCENT 9 % (BEAKER) (test wqrc=636) EOSINOPHILS RELATIVE PERCENT 3 % (BEAKER) (test eboi=390) BASOPHILS RELATIVE PERCENT 1 % (BEAKER) (test nucj=900) NEUTROPHILS ABSOLUTE COUNT 5.81 K/ L 1.80-8.00 (BEAKER) (test lvkh=044) LYMPHOCYTES ABSOLUTE COUNT 2.03 K/ L 1.48-4.50 (BEAKER) (test gnwo=600) MONOCYTES ABSOLUTE COUNT 0.81 K/ L 0.00-1.30 (BEAKER) (test byrq=081) EOSINOPHILS ABSOLUTE COUNT 0.25 K/ L 0.00-0.50 (BEAKER) (test bzle=760) BASOPHILS ABSOLUTE COUNT 0.10 K/ L 0.00-0.20 (BEAKER) (test ysli=339) IMMATURE GRANULOCYTES-RELATIVE 0 % 0-0 PERCENT (BEAKER) (test jcdt=7135) URINALYSIS [id number] 00:50:00 Test Item Value Reference Range Comments [...] RESULTS VERIFIED WITH AUTO-DILUTION PROCEDURES. COMPREHENSIVE METABOLIC [id number] 17:20:00 Test Item Value Reference Range Comments [...] NORMAL <50 MG 1 NORMAL code=LIPINDEX) Index/DL [id number] 17:20:00 Test Item Value Reference Range Comments MAGNESIUM (test code=MAG) 2.7 MG/DL 1.6-2.6 COMPREHENSIVE METABOLIC [id number] 17:17:00 Test Item Value Reference Range Comments [...] NORMAL <50 MG 1 NORMAL code=LIPINDEX) Index/DL [id number] 17:17:00 Test Item Value Reference Range Comments MAGNESIUM (test code=MAG) 2.7 MG/DL 1.6-2.6 CBC W/AUTO [id number] 17:03:00 Test Item Value Reference Range Comments [...] code=NRBC#) 0.00 K/mm3 0.00-0.05 RAPID DRUG SCREEN, [id number] 01:40:00 Test Item Value Reference Range Comments BARBITURATE URINE (BEAKER) (test obtd=427) Negative Negative BENZODIAZEPINE SCREEN URINE (BEAKER) (test Negative Negative igpn=587) COCAINE (METAB.) SCREEN (BEAKER) (test qezf=2646) Negative Negative METHADONE SCREEN (BEAKER) (test uwnw=5287) Negative Negative OPIATE SCREEN URINE (BEAKER) (test qrhz=619) Negative Negative CANNABINOID SCREEN URINE (BEAKER) (test jvwb=113) Negative Negative AMPH/METHAMPH SCREEN (BEAKER) (test wfqm=2258) Negative Negative PHENCYCLIDINE SCREEN URINE (BEAKER) (test dssg=742) Negative Negative DRUG CUTOFF CONC.Cocaine 300 ng/mL Cannabinoid 50 ng/mLBenzodiazepine 200 ng/mLBarbiturate 200 ng/ mLPhencyclidine 25 ng/mLOpiate 300 ng/mLMethadone 300 ng/mLAmphetamine/ 1000 ng/mL MethamphetamineThis assay provides an unconfirmed qualitative test result for the clinical management of patients in emergency situations. Chain of custody not maintained. Some mypj-hns-lvtcpmg medications, as well as adulterants, may cause inaccurate results. Clinical correlation should be applied. A more comprehensivedrug screen or confirmation of a detected drug may be performed upon request.URINALYSIS W/ REFLEX URINE [id number] 01:23:00 Test Item Value Reference Range Comments COLOR (BEAKER) (test gkjm=318) Yellow CLARITY (BEAKER) (test fkqy=689) Clear SPECIFIC GRAVITY UA (BEAKER) (test gfos=781) 1.015 1.001-1.035 PH UA (BEAKER) (test sgfb=720) 6.0 5.0-8.0 PROTEIN UA (BEAKER) (test enun=071) Negative Negative GLUCOSE UA (BEAKER) (test ovjv=288) Negative Negative KETONES UA (BEAKER) (test ghlr=303) 20 mg/dL Negative BILIRUBIN UA (BEAKER) (test jjcn=093) Negative Negative BLOOD UA (BEAKER) (test egzh=191) Negative Negative NITRITE UA (BEAKER) (test xpnv=183) Negative Negative LEUKOCYTE ESTERASE UA (BEAKER) (test orhr=548) Small Negative UROBILINOGEN UA (BEAKER) (test cstx=021) 2.0 mg/dL 0.2-1.0 RBC UA (BEAKER) (test qbxf=220) 4 /HPF WBC UA (BEAKER) (test bjjd=121) 21 /HPF BACTERIA (BEAKER) (test fxuf=374) Few MUCUS (BEAKER) (test rmxf=4658) Moderate SQUAMOUS EPITHELIAL (BEAKER) (test vlur=922) < /HPF SOURCE(BEAKER) (test shez=0011) [id number] 23:00:00 Test Item Value Reference Range Comments LIPASE (BEAKER) (test lbci=971) 17 U/L 8-78 COMPREHENSIVE METABOLIC [id number] 23:00:00 Test Item Value Reference Range Comments TOTAL PROTEIN (BEAKER) 7.2 gm/dL 6.0-8.5 Specimen markedly (test vdjr=972) hemolyzed ALBUMIN (BEAKER) (test 4.1 g/dL 3.5-5.0 Specimen markedly zoni=8345) hemolyzed ALKALINE PHOSPHATASE 76 U/L 30-115 (BEAKER) (test ihde=220) BILIRUBIN TOTAL (BEAKER) 0.5 mg/dL 0.1-1.3 Specimen markedly (test bxko=591) hemolyzed SODIUM (BEAKER) (test 139 meq/L 135-148 ikvg=320) POTASSIUM (BEAKER) (test 4.9 meq/L 3.5-5.5 Specimen markedly fhft=219) hemolyzed CHLORIDE (BEAKER) (test 106 meq/L 98-106 mufx=722) CO2 (BEAKER) (test 23 meq/L 20-31 hskm=108) BLOOD UREA NITROGEN 7 mg/dL 10-26 (BEAKER) (test grah=304) CREATININE (BEAKER) (test 0.83 mg/dL 0.50-1.20 Specimen markedly vdsr=105) hemolyzed GLUCOSE RANDOM (BEAKER) 82 mg/dL 70-110 (test gfih=929) CALCIUM (BEAKER) (test 9.5 mg/dL 8.5-10.5 fpec=417) AST (SGOT) (BEAKER) (test 37 U/L 5-40 Specimen markedly asie=844) hemolyzed ALT (SGPT) (BEAKER) (test 23 U/L 6-50 Specimen markedly qone=224) hemolyzed EGFR (BEAKER) (test 97 mL/min/1.73 sq m ESTIMATED GFR IS NOT bbdb=3391) ACCURATE CREATININE CLEARANCE IN PREDICTING GLOMERULAR FILTRATION RATE. ESTIMATED GFR IS NOT APPLICABLE FOR DIALYSIS PATIENTS. ACETAMINOPHEN [id number] 22:57:00 Test Item Value Reference Range Comments ACETAMINOPHEN LEVEL (BEAKER) < ug/mL 10.0-30.0 Specimen markedly hemolyzed (test lrcj=424) SALICYLATE [id number] 22:52:00 Test Item Value Reference Range Comments SALICYLATE LEVEL (BEAKER) (test ucna=542) < mg/dL 20.0-30.0 [id number] 22:47:00 Test Item Value Reference Range Comments ETHANOL (BEAKER) (test aqux=458) < mg/dL <=10 CBC W/PLT COUNT & AUTO [id number] 22:24:00 Test Item Value Reference Range Comments WHITE BLOOD CELL COUNT (BEAKER) 5.5 K/ L 4.0-10.0 (test uila=843) RED BLOOD CELL COUNT (BEAKER) 4.12 M/ L 4.20-5.80 (test hpoh=742) HEMOGLOBIN (BEAKER) (test 13.0 GM/DL 13.0-16.8 knku=075) HEMATOCRIT (BEAKER) (test 39.0 % 36.0-50.0 llyc=104) MEAN CORPUSCULAR VOLUME 94.7 fL 82.0-99.0 (BEAKER) (test jcpn=110) MEAN CORPUSCULAR HEMOGLOBIN 31.6 pg 27.0-33.0 (BEAKER) (test bmkm=540) MEAN CORPUSCULAR HEMOGLOBIN 33.3 GM/DL 32.0-36.0 CONC (BEAKER) (test locj=540) RED CELL DISTRIBUTION WIDTH 13.6 % 12.0-15.0 (BEAKER) (test hfqu=764) PLATELET COUNT (BEAKER) (test 321 K/CU MM 150-430 jspv=229) MEAN PLATELET VOLUME (BEAKER) 8.9 fL 6.0-11.5 MPV-Approximately 20% (test hpbw=721) positive bias due to method change. NUCLEATED RED BLOOD CELLS 0 /100 WBC 0-0 (BEAKER) (test eakb=060) NEUTROPHILS RELATIVE PERCENT 59 % (BEAKER) (test pseo=110) LYMPHOCYTES RELATIVE PERCENT 31 % (BEAKER) (test cgjq=793) MONOCYTES RELATIVE PERCENT 7 % (BEAKER) (test fhyy=618) EOSINOPHILS RELATIVE PERCENT 2 % (BEAKER) (test ktrf=204) BASOPHILS RELATIVE PERCENT 1 % (BEAKER) (test tssh=399) NEUTROPHILS ABSOLUTE COUNT 3.21 K/ L 1.80-8.00 (BEAKER) (test tmlm=094) LYMPHOCYTES ABSOLUTE COUNT 1.68 K/ L 1.48-4.50 (BEAKER) (test eyle=416) MONOCYTES ABSOLUTE COUNT 0.38 K/ L 0.00-1.30 (BEAKER) (test rrmc=696) EOSINOPHILS ABSOLUTE COUNT 0.12 K/ L 0.00-0.50 (BEAKER) (test byej=305) BASOPHILS ABSOLUTE COUNT 0.05 K/ L 0.00-0.20 (BEAKER) (test xfgn=438) IMMATURE GRANULOCYTES-RELATIVE 0 % 0-0 PERCENT (BEAKER) (test acnh=3581) RAPID DRUG SCREEN, [id number] 23:37:00 Test Item Value Reference Range Comments BARBITURATE URINE (BEAKER) (test dkkj=519) Negative Negative BENZODIAZEPINE SCREEN URINE (BEAKER) (test Negative Negative wwyz=623) COCAINE (METAB.) SCREEN (BEAKER) (test hpem=6822) Negative Negative METHADONE SCREEN (BEAKER) (test ywnm=0561) Negative Negative OPIATE SCREEN URINE (BEAKER) (test zlnl=986) Negative Negative CANNABINOID SCREEN URINE (BEAKER) (test fbwx=265) Negative Negative AMPH/METHAMPH SCREEN (BEAKER) (test shrg=2620) Positive Negative PHENCYCLIDINE SCREEN URINE (BEAKER) (test udnq=427) Negative Negative DRUG CUTOFF CONC.Cocaine 300 ng/mL Cannabinoid 50 ng/mLBenzodiazepine 200 ng/mLBarbiturate 200 ng/ mLPhencyclidine 25 ng/mLOpiate 300 ng/mLMethadone 300 ng/mLAmphetamine/ 1000 ng/mL MethamphetamineThis assay provides an unconfirmed qualitative test result for the clinical management of patients in emergency situations. Chain of custody not maintained. Some mzgm-scm-vbkmogn medications, as well as adulterants, may cause inaccurate results. Clinical correlation should be applied. A more comprehensivedrug screen or confirmation of a detected drug may be performed upon request.BASIC METABOLIC [id number] 23:37:00 Test Item Value Reference Range Comments SODIUM (BEAKER) (test 141 meq/L 135-148 dozk=601) POTASSIUM (BEAKER) (test 3.2 meq/L 3.5-5.5 ziuh=937) CHLORIDE (BEAKER) (test 107 meq/L 98-106 knqr=179) CO2 (BEAKER) (test 26 meq/L 20-31 dija=904) BLOOD UREA NITROGEN 18 mg/dL 10-26 (BEAKER) (test cpbx=276) CREATININE (BEAKER) (test 0.79 mg/dL 0.50-1.20 qffj=397) GLUCOSE RANDOM (BEAKER) 94 mg/dL 70-110 (test apsj=385) CALCIUM (BEAKER) (test 9.1 mg/dL 8.5-10.5 crdc=964) EGFR (BEAKER) (test 102 mL/min/1.73 sq m ESTIMATED GFR IS NOT oepy=2093) ACCURATE CREATININE CLEARANCE IN PREDICTING GLOMERULAR FILTRATION RATE. ESTIMATED GFR IS NOT APPLICABLE FOR DIALYSIS PATIENTS. SALICYLATE [id number] 23:28:00 Test Item Value Reference Range Comments SALICYLATE LEVEL (BEAKER) (test uarq=416) < mg/dL 20.0-30.0 ACETAMINOPHEN [id number] 23:25:00 Test Item Value Reference Range Comments ACETAMINOPHEN LEVEL (BEAKER) (test hsss=046) 8.6 ug/mL 10.0-30.0 [id number] 23:23:00 Test Item Value Reference Range Comments ETHANOL (BEAKER) (test afvz=768) < mg/dL <=10 CBC W/PLT COUNT & AUTO [id number] 23:03:00 Test Item Value Reference Range Comments WHITE BLOOD CELL COUNT (BEAKER) 5.5 K/ L 4.0-10.0 (test llgs=047) RED BLOOD CELL COUNT (BEAKER) 3.90 M/ L 4.20-5.80 (test voof=808) HEMOGLOBIN (BEAKER) (test 12.3 GM/DL 13.0-16.8 dery=803) HEMATOCRIT (BEAKER) (test 37.0 % 36.0-50.0 zprh=054) MEAN CORPUSCULAR VOLUME 94.9 fL 82.0-99.0 (BEAKER) (test hqdp=525) MEAN CORPUSCULAR HEMOGLOBIN 31.5 pg 27.0-33.0 (BEAKER) (test bhbo=938) MEAN CORPUSCULAR HEMOGLOBIN 33.2 GM/DL 32.0-36.0 CONC (BEAKER) (test zmzo=320) RED CELL DISTRIBUTION WIDTH 13.3 % 12.0-15.0 (BEAKER) (test akyb=742) PLATELET COUNT (BEAKER) (test 294 K/CU MM 150-430 kakg=794) MEAN PLATELET VOLUME (BEAKER) 8.6 fL 6.0-11.5 MPV-Approximately 20% (test nvdy=440) positive bias due to method change. NUCLEATED RED BLOOD CELLS 0 /100 WBC 0-0 (BEAKER) (test kcpb=163) NEUTROPHILS RELATIVE PERCENT 50 % (BEAKER) (test ncfy=288) LYMPHOCYTES RELATIVE PERCENT 37 % (BEAKER) (test mkpr=838) MONOCYTES RELATIVE PERCENT 7 % (BEAKER) (test ualc=311) EOSINOPHILS RELATIVE PERCENT 5 % (BEAKER) (test otuo=099) BASOPHILS RELATIVE PERCENT 1 % (BEAKER) (test cdzi=751) NEUTROPHILS ABSOLUTE COUNT 2.73 K/ L 1.80-8.00 (BEAKER) (test vfol=545) LYMPHOCYTES ABSOLUTE COUNT 2.05 K/ L 1.48-4.50 (BEAKER) (test qjlz=494) MONOCYTES ABSOLUTE COUNT 0.39 K/ L 0.00-1.30 (BEAKER) (test lymu=986) EOSINOPHILS ABSOLUTE COUNT 0.26 K/ L 0.00-0.50 (BEAKER) (test cqtb=390) BASOPHILS ABSOLUTE COUNT 0.07 K/ L 0.00-0.20 (BEAKER) (test iimv=782) IMMATURE GRANULOCYTES-RELATIVE 0 % 0-0 PERCENT (BEAKER) (test ecpu=9556) COMPREHENSIVE METABOLIC [id number] 05:21:00 Test Item Value Reference Range Comments [...] MG 1 NORMAL code=LIPINDEX) Index/DL CBC W/AUTO [id number] 04:58:00 Test Item Value Reference Range Comments [...] code=NRBC#) 0.00 K/mm3 0.00-0.05 RAPID DRUG SCREEN, [id number] 10:16:00 Test Item Value Reference Range Comments BARBITURATE URINE (BEAKER) (test oacx=820) Negative Negative BENZODIAZEPINE SCREEN URINE (BEAKER) (test Negative Negative ynqx=406) COCAINE (METAB.) SCREEN (BEAKER) (test tocg=9929) Negative Negative METHADONE SCREEN (BEAKER) (test rhsj=8561) Negative Negative OPIATE SCREEN URINE (BEAKER) (test cqzr=183) Negative Negative CANNABINOID SCREEN URINE (BEAKER) (test kvbp=813) Negative Negative AMPH/METHAMPH SCREEN (BEAKER) (test nfxe=3073) Negative Negative PHENCYCLIDINE SCREEN URINE (BEAKER) (test puny=352) Negative Negative OXYCODONE SCREEN URINE (BEAKER) (test llxo=5517) Negative Negative DRUG CUTOFF CONC.Cocaine 300 ng/mL Cannabinoid 50 ng/mL Benzodiazepine 200 ng/mLBarbiturate 200 ng/ mLPhencyclidine 25 ng/mLOpiate 300 ng/mLMethadone 300 ng/mLAmphetamine/ 1000 ng/mL MethamphetamineOxycodone 300 ng/mLThis assay provides an unconfirmed qualitative test result for the clinical management of patients in emergency situations. Chain of custody not maintained. Some epgd-jwx-qxlbyln medications, as well as adulterants, may cause inaccurate results. Clinical correlation should be applied. A more comprehensive drug screen or confirmation of a detected drug may be performed upon request.URINALYSIS W/ [id number] 08:52:00 Test Item Value Reference Range Comments COLOR (BEAKER) (test clds=885) Yellow CLARITY (BEAKER) (test ooyc=357) Clear SPECIFIC GRAVITY UA (BEAKER) (test epbj=001) 1.013 1.001-1.035 PH UA (BEAKER) (test gont=288) 6.0 5.0-8.0 PROTEIN UA (BEAKER) (test ybpz=732) Negative Negative GLUCOSE UA (BEAKER) (test kevg=077) Negative Negative KETONES UA (BEAKER) (test aqyp=134) Negative Negative BILIRUBIN UA (BEAKER) (test vvyp=367) Negative Negative BLOOD UA (BEAKER) (test myfr=579) Negative Negative NITRITE UA (BEAKER) (test lfpj=421) Negative Negative LEUKOCYTE ESTERASE UA (BEAKER) (test rdjz=385) Negative Negative UROBILINOGEN UA (BEAKER) (test kmbm=124) 0.2 mg/dL 0.2-1.0 RBC UA (BEAKER) (test ykua=047) 1 /HPF WBC UA (BEAKER) (test ylxo=281) < /HPF MUCUS (BEAKER) (test bffm=2190) Rare SOURCE(BEAKER) (test peuh=5712) Urine, Voided TSH/FREE T4 IF [id number] 01:43:00 Test Item Value Reference Range Comments THYROID STIMULATING HORMONE (BEAKER) (test 1.16 uIU/mL 0.35-4.94 dlgq=512) HEPATIC FUNCTION [id number] 01:07:00 Test Item Value Reference Range Comments TOTAL PROTEIN (BEAKER) (test wuhr=371) 6.4 gm/dL 6.0-8.3 ALBUMIN (BEAKER) (test arht=3310) 4.0 g/dL 3.5-5.0 BILIRUBIN TOTAL (BEAKER) (test rowo=184) 0.5 mg/dL 0.2-1.2 BILIRUBIN DIRECT (BEAKER) (test vrow=019) 0.2 mg/dL 0.1-0.5 ALKALINE PHOSPHATASE (BEAKER) (test sgea=002) 74 U/L 40-150 AST (SGOT) (BEAKER) (test hxcf=745) 38 U/L 5-34 ALT (SGPT) (BEAKER) (test jnom=551) 47 U/L 6-55 COMPREHENSIVE METABOLIC [id number] 01:07:00 Test Item Value Reference Range Comments TOTAL PROTEIN (BEAKER) 6.4 gm/dL 6.0-8.3 (test xicz=327) ALBUMIN (BEAKER) (test 4.0 g/dL 3.5-5.0 kivz=1507) ALKALINE PHOSPHATASE 74 U/L 40-150 (BEAKER) (test rchm=257) BILIRUBIN TOTAL (BEAKER) 0.5 mg/dL 0.2-1.2 (test pfvn=347) SODIUM (BEAKER) (test 140 meq/L 136-145 pyeb=296) POTASSIUM (BEAKER) (test 3.8 meq/L 3.5-5.1 cvyb=062) CHLORIDE (BEAKER) (test 109 meq/L 98-107 utyo=994) CO2 (BEAKER) (test 23 meq/L 22-29 duwl=591) BLOOD UREA NITROGEN 22 mg/dL 7-21 (BEAKER) (test wodl=629) CREATININE (BEAKER) (test 0.74 mg/dL 0.57-1.25 mmhh=590) GLUCOSE RANDOM (BEAKER) 100 mg/dL 70-105 (test qovr=742) CALCIUM (BEAKER) (test 9.0 mg/dL 8.4-10.2 koxn=967) AST (SGOT) (BEAKER) (test 38 U/L 5-34 dcnw=121) ALT (SGPT) (BEAKER) (test 47 U/L 6-55 zzet=862) EGFR (BEAKER) (test 111 mL/min/1.73 sq ESTIMATED GFR IS NOT mfmb=0894) m ACCURATE CREATININE CLEARANCE IN PREDICTING GLOMERULAR FILTRATION RATE. ESTIMATED GFR IS NOT APPLICABLE FOR DIALYSIS PATIENTS. [id number] 01:03:00 Test Item Value Reference Range Comments ETHANOL (BEAKER) (test eeci=527) < mg/dL <=10 LACTIC ACID, VENOUS, WHOLE [id number] 01:01:00 Test Item Value Reference Range Comments LACTATE BLOOD VENOUS (2) (BEAKER) (test 0.5 mmol/L 0.5-2.2 tmqq=8336) Effective 09/22/2015: Units/Reference Range ChangeNew: 0.5-2.2 mmol/L Previous: 5 -20 mg/dLCBC W/PLT COUNT & AUTO [id number] 00:51:00 Test Item Value Reference Range Comments WHITE BLOOD CELL COUNT (BEAKER) (test salv=800) 8.1 K/ L 3.5-10.5 RED BLOOD CELL COUNT (BEAKER) (test tlzb=783) 3.77 M/ L 4.63-6.08 HEMOGLOBIN (BEAKER) (test hiku=310) 11.6 GM/DL 13.7-17.5 HEMATOCRIT (BEAKER) (test jiuu=925) 35.8 % 40.1-51.0 MEAN CORPUSCULAR VOLUME (BEAKER) (test suoh=814) 95.0 fL 79.0-92.2 MEAN CORPUSCULAR HEMOGLOBIN (BEAKER) (test 30.8 pg 25.7-32.2 pzqt=094) MEAN CORPUSCULAR HEMOGLOBIN CONC (BEAKER) (test 32.4 GM/DL 32.3-36.5 opki=941) RED CELL DISTRIBUTION WIDTH (BEAKER) (test 13.8 % 11.6-14.4 wmkk=209) PLATELET COUNT (BEAKER) (test olxk=504) 261 K/CU MM 150-450 MEAN PLATELET VOLUME (BEAKER) (test rzwm=136) 9.0 fL 9.4-12.4 NUCLEATED RED BLOOD CELLS (BEAKER) (test 0 /100 WBC 0-0 iyrv=226) NEUTROPHILS RELATIVE PERCENT (BEAKER) (test 68 % jmbv=898) LYMPHOCYTES RELATIVE PERCENT (BEAKER) (test 23 % iuyi=864) MONOCYTES RELATIVE PERCENT (BEAKER) (test 6 % oell=450) EOSINOPHILS RELATIVE PERCENT (BEAKER) (test 2 % jsax=112) BASOPHILS RELATIVE PERCENT (BEAKER) (test 1 % zuxr=186) NEUTROPHILS ABSOLUTE COUNT (BEAKER) (test 5.48 K/ L 1.78-5.38 gcxe=180) LYMPHOCYTES ABSOLUTE COUNT (BEAKER) (test 1.82 K/ L 1.32-3.57 coxa=538) MONOCYTES ABSOLUTE COUNT (BEAKER) (test 0.49 K/ L 0.30-0.82 ydat=253) EOSINOPHILS ABSOLUTE COUNT (BEAKER) (test 0.17 K/ L 0.04-0.54 hhdv=463) BASOPHILS ABSOLUTE COUNT (BEAKER) (test 0.09 K/ L 0.01-0.08 xqtp=312) IMMATURE GRANULOCYTES-RELATIVE PERCENT (BEAKER) 0 % 0-1 (test xawz=9884) POCT-GLUCOSE [id number] 00:47:00 Test Item Value Reference Range Comments POC-GLUCOSE METER (BEAKER) 111 mg/dL 70-[address] [facility] [address] (test bmav=5644) [facility] [id number]
[2018-11-13 03:10] LABS: Urine Blood NEGATIVE (NEG); Urine Glucose NEGATIVE (NEG); Urine Protein NEGATIVE (NEG); Urine Specific Gravity 1.015 (1.005-1.030)
[2018-11-13] MEDS ORDERED: NA CHLORIDE 0.9% 1,000 ML ONE (03:23)
[2018-11-13 03:32] LABS: BUN Blood Urea Nitrogen 23 mg/dL (7-18); Bicarbonate 28 mmol/L (21-32); Glucose Level 87 mg/dL (74-106); Potassium 4.1 mmol/L (3.5-5.1); Sodium Level 140 mmol/L (136-145)
[2018-11-13 04:02] LABS: Absolute Lymphocytes (CBC) 2.3 K/uL (0.7-4.9); Basophils % 1.6 % (0-1.3); Eosinophils % 3.6 % (0-4.4); Hematocrit 36.1 % (39.6-49.0); Lymphocytes % 39.2 % (15.3-44.8); MPV 7.5 fL (7.6-11.3); Monocytes % 8.3 % (3.3-12.3); RBC Red Blood Cell Count 3.85 M/uL (4.33-5.43)
--- NOTE | 2018-11-13 04:15 | ER ---
Nurse's Notes [facility] Name: John Richards Age: 53 yrs Sex: Male : 1965 Arrival Date: 11/13/2018 Time: 02:13 Bed 20 Private MD: Diagnosis: Abdominal tenderness Presentation: 11/13 02:20 Presenting complaint: Patient states: I have a hernia that hurts so they told me to ed1 come here from some ibuprofen. They only thing I can take for it is ibuprofen 800mg. Transition of care: patient was not received from another setting of care. Onset of symptoms is unknown. Risk Assessment: Do you want to hurt yourself or someone else? Patient reports no desire to harm self or others. Initial Sepsis Screen: Does the patient meet any 2 criteria? No. Patient's initial sepsis screen is negative. Does the patient have a suspected source of infection? No. Patient's initial sepsis screen is negative. Care prior to arrival: None. 02:20 Method Of Arrival: Ambulatory ed1 02:20 Acuity: VICTOR HUGO 4 ed1 Triage Assessment: 02:22 General: Appears in no apparent distress. Behavior is calm, cooperative. Pain: ed1 Complains of pain in abdomen Pain currently is 9 out of 10 on a pain scale. GI: Reports nausea, vomiting. Historical: - Allergies: 02:22 No Known Allergies; ed1 - Home Meds: 02:22 None [Active]; ed1 - PMHx: 02:22 Bipolar disorder; Chronic pain; Depression; Hernia; PTSD; Schizophrenia; ed1 - PSHx: 02:22 None; ed1 - Immunization history:: Adult Immunizations unknown. - Social history:: Smoking status: Patient uses tobacco products, smokes one pack cigarettes per day. - Ebola Screening: : Patient negative for fever greater than or equal to 101.5 degrees Fahrenheit, and additional compatible Ebola Virus Disease symptoms Patient denies exposure to infectious person Patient denies travel to an Ebola-affected area in the 21 days before illness onset No symptoms or risks identified at this time. Screenin:24 Abuse screen: Denies threats or abuse. Denies injuries from another. Nutritional cc3 screening: No deficits noted. Tuberculosis screening: No symptoms or risk factors identified. Fall Risk Ambulatory Aid- None/Bed Rest/Nurse Assist (0 pts). Gait- Normal/Bed Rest/Wheelchair (0 pts) Mental Status- Oriented to own ability (0 pts). Assessment: 02:24 General: Appears in no apparent distress. comfortable, Behavior is calm, cooperative, cc3 appropriate for age. Pain: Complains of pain in abdomen, right lower quadrant. Neuro: Level of Consciousness is awake, alert, obeys commands, Oriented to person, place, time, situation, Appropriate for age. Cardiovascular: Denies chest pain, Patient's skin is warm and dry. Respiratory: Airway is patent Respiratory effort is even, unlabored, Respiratory pattern is regular, symmetrical. GI: Abdomen is flat, Bowel sounds present X 4 quads. Abd is soft and non tender X 4 quads. : No signs and/or symptoms were reported regarding the genitourinary system. EENT: No signs and/or symptoms were reported regarding the EENT system. Derm: Skin is intact, is healthy with good turgor, Skin is pink, warm \T\ dry. normal. Musculoskeletal: Circulation, motion, and sensation intact. Range of motion: intact in all extremities. 03:20 Reassessment: Patient appears in no apparent distress at this time. Patient and/or cc3 family updated on plan of care and expected duration. Pain level reassessed. Patient is alert, oriented x 3, equal unlabored respirations, skin warm/dry/pink. 03:50 Reassessment: Dr. Howe added some laboratory workup for the patient, informed the cc3 lab at [facility] [address] and the wharf laborer said no need for another sample because she got 1 lavender and 1 green tube earlier, she said she just needs the labels and so labels sent by pneumatic tube. 04:03 Reassessment: Patient appears in no apparent distress at this time. Patient and/or cc3 family updated on plan of care and expected duration. Pain level reassessed. Patient is alert, oriented x 3, equal unlabored respirations, skin warm/dry/pink. prosthetic lab technician was about to pick the patient up for procedure but patient refused CT scan abdomen procedure, Dr. Howe and charge nurse Mellisa informed. 04:35 Reassessment: Patient appears in no apparent distress at this time. Patient and/or cc3 family updated on plan of care and expected duration. Pain level reassessed. Patient is alert, oriented x 3, equal unlabored respirations, skin warm/dry/pink. Patient still refused CT scan abdomen procedure though risks and consequences explained and opted to go against medical advice, AMA form signed by the patient himself. Dr. Howe discharged the patient AMA with instructions given. IV cannula removed and patient left ER vitally stable and ambulatory. No valuables left bedside. Patient states feeling better. Patient states symptoms have improved. Vital Signs: 02:22 BP 106 / 65; Pulse 75; Resp 16; Temp 97.8(O); Pulse Ox 99% on R/A; Weight 56.7 kg; ed1 Height 5 ft. 7 in. (170.18 cm); Pain 9/10; 02:45 BP 83 / 55; Pulse 74; Resp 16 S; Pulse Ox 98% on R/A; cc3 03:03 BP 98 / 58; Pulse 63; Resp 16 S; Pulse Ox 98% on R/A; cc3 03:47 BP 94 / 60; Pulse 72; Resp 17 S; Pulse Ox 98% on R/A; cc3 04:15 BP 124 / 76; Pulse 68; Resp 17 S; Pulse Ox 99% on R/A; cc3 02:22 Body Mass Index 19.58 (56.70 kg, 170.18 cm) ed1 ED Course: 02:13 Patient arrived in ED. ds1 02:21 Triage completed. ed1 02:22 Arm band placed on right wrist. ed1 02:24 Ashley Judge is Primary Nurse. cc3 02:24 Patient has correct armband on for positive identification. Bed in low position. Call cc3 light in reach. Side rails up X 1. Pulse ox on. NIBP on. 03:00 Inserted saline lock: 20 gauge in right antecubital area, using aseptic technique. cc3 Blood collected. 03:19 Danny Howe MD is Attending Physician. kamille 04:35 No provider procedures requiring assistance completed. IV discontinued, intact, cc3 bleeding controlled, No redness/swelling at site. Pressure dressing applied. Administered Medications: 03:05 Drug: NS 0.9% 1000 ml Route: IV; Rate: 1 bolus; Site: right antecubital; cc3 04:00 Follow up: Response: No adverse reaction; IV Status: Completed infusion; IV Intake: cc3 1000ml Intake: 04:00 IV: 1000ml; Total: 1000ml. cc3 Outcome: 04:35 AMA AMA form signed cc3 04:35 Condition: stable 04:35 Discharge instructions given to patient, Instructed on discharge instructions, follow up and referral plans. Demonstrated understanding of instructions, follow-up care. 04:45 Patient left the ED. cc3 Signatures: Danny Howe MD MD cha Sanford, Demi ds1 Stefany Coffey, RN RN ed1 Ashley Judge cc3 Corrections: (The following items were deleted from the chart) 05:12 04:03 Reassessment: Patient appears in no apparent distress at this time. Patient cc3 and/or family updated on plan of care and expected duration. Pain level reassessed. Patient is alert, oriented x 3, equal unlabored respirations, skin warm/dry/pink. prosthetic lab technician was about to pick the patient up for procedure but patient refused CT scan procedure, Dr. Howe and charge nurse Mellisa informed. cc3 05:19 04:35 Reassessment: Patient appears in no apparent distress at this time. Patient cc3 and/or family updated on plan of care and expected duration. Pain level reassessed. Patient is alert, oriented x 3, equal unlabored respirations, skin warm/dry/pink. Patient still refused CT scan abdomen procedure though risks and consequences explained and opted to go against medical advice, AMA form signed by the patient himself. Dr. Howe discharged the patient AMA with instructions given. IV cannula removed and patient left ER vitally stable and ambulatory. No valuables left bedside. Patient states feeling better. cc3
--- NOTE | 2018-11-13 04:15 | EDPHYS ---
Physician Documentation [facility] Name: John Richards Age: 53 yrs Sex: Male : 1965 Arrival Date: 11/13/2018 Time: 02:13 Bed 20 Private MD: SIDNEY Physician Danny Howe HPI: 11/13 02:55 This 53 yrs old Male presents to ER via Ambulatory with complaints of snw Abdominal Pain. 02:55 The patient presents with pt with long standing hernia, easily reducible. Pt [facility] Pt has been to this facility 3 times this week. Today with pressures in the 80's. Will hydrate and discharge to f/u. Onset: The symptoms/episode began/occurred gradually. The symptoms do not radiate. Associated signs and symptoms: none. The symptoms are described as crampy, intermittent. Severity of pain: At its worst the pain was very mild. The patient has experienced similar episodes in the past. The patient has been recently seen by a physician: The patient has been recently seen at the [facility] Emergency Department, x 2 other episodes this week. Historical: - Allergies: 02:22 No Known Allergies; ed1 - Home Meds: 02:22 None [Active]; ed1 - PMHx: 02:22 Bipolar disorder; Chronic pain; Depression; Hernia; PTSD; Schizophrenia; ed1 - PSHx: 02:22 None; ed1 - Immunization history:: Adult Immunizations unknown. - Social history:: Smoking status: Patient uses tobacco products, smokes one pack cigarettes per day. - Ebola Screening: : Patient negative for fever greater than or equal to 101.5 degrees Fahrenheit, and additional compatible Ebola Virus Disease symptoms Patient denies exposure to infectious person Patient denies travel to an Ebola-affected area in the 21 days before illness onset No symptoms or risks identified at this time. ROS: 02:57 Constitutional: Negative for fever, chills, and weight loss, Eyes: Negative for injury, snw pain, redness, and discharge, ENT: Negative for injury, pain, and discharge, Neck: Negative for injury, pain, and swelling, Cardiovascular: Negative for chest pain, palpitations, and edema, Respiratory: Negative for shortness of breath, cough, wheezing, and pleuritic chest pain, Back: Negative for injury and pain, : Negative for injury, bleeding, discharge, and swelling, MS/Extremity: Negative for injury and deformity, Skin: Negative for injury, rash, and discoloration, Neuro: Negative for headache, weakness, numbness, tingling, and seizure. 02:57 Abdomen/GI: Positive for abdominal pain, requests motrin for generalized aches. Exam: 02:58 Head/Face: Normocephalic, atraumatic. Eyes: Pupils equal round and reactive to light, snw extra-ocular motions intact. Lids and lashes normal. Conjunctiva and sclera are non-icteric and not injected. Cornea within normal limits. Periorbital areas with no swelling, redness, or edema. ENT: Nares patent. No nasal discharge, no septal abnormalities noted. Tympanic membranes are normal and external auditory canals are clear. Oropharynx with no redness, swelling, or masses, exudates, or evidence of obstruction, uvula midline. Mucous membranes moist. Neck: Trachea midline, no thyromegaly or masses palpated, and no cervical lymphadenopathy. Supple, full range of motion without nuchal rigidity, or vertebral point tenderness. No Meningismus. Chest/axilla: Normal chest wall appearance and motion. Nontender with no deformity. No lesions are appreciated. Cardiovascular: Regular rate and rhythm with a normal S1 and S2. No gallops, murmurs, or rubs. Normal PMI, no JVD. No pulse deficits. Respiratory: Lungs have equal breath sounds bilaterally, clear to auscultation and percussion. No rales, rhonchi or wheezes noted. No increased work of breathing, no retractions or nasal flaring. 02:58 Back: No spinal tenderness. No costovertebral tenderness. Full range of motion. Skin: Warm, dry with normal turgor. Normal color with no rashes, no lesions, and no evidence of cellulitis. MS/ Extremity: Pulses equal, no cyanosis. Neurovascular intact. Full, normal range of motion. Neuro: Awake and alert, GCS 15, oriented to person, place, time, and situation. Cranial nerves II-XII grossly intact. Motor strength 5/5 in all extremities. Sensory grossly intact. Cerebellar exam normal. Normal gait. 02:58 Constitutional: The patient appears awake, anxious, frail, restless. 02:58 Abdomen/GI: Inspection: distension, that is mild, in the suprapubic area, Palpation: abdomen is soft and non-tender. 02:58 Skin: Appearance: Color: normal in color, Temperature: warm, Moisture: dry. 02:58 Psych: Behavior/mood is cooperative, inappropriate for age, Affect is animated, Oriented to person, place, time. 03:49 Abdomen/GI: Inspection: Bowel sounds: active, all quadrants, Palpation: mild abdominal kamille tenderness, moderate abdominal tenderness, in the right lower quadrant, Liver: no appreciated palpable abnormalities, Hernia: not appreciated. Vital Signs: 02:22 BP 106 / 65; Pulse 75; Resp 16; Temp 97.8(O); Pulse Ox 99% on R/A; Weight 56.7 kg; ed1 Height 5 ft. 7 in. (170.18 cm); Pain 9/10; 02:45 BP 83 / 55; Pulse 74; Resp 16 S; Pulse Ox 98% on R/A; cc3 03:03 BP 98 / 58; Pulse 63; Resp 16 S; Pulse Ox 98% on R/A; cc3 03:47 BP 94 / 60; Pulse 72; Resp 17 S; Pulse Ox 98% on R/A; cc3 04:15 BP 124 / 76; Pulse 68; Resp 17 S; Pulse Ox 99% on R/A; cc3 02:22 Body Mass Index 19.58 (56.70 kg, 170.18 cm) ed1 MDM: 03:19 Patient medically screened. [facility] 03:49 Data reviewed: vital signs, nurses notes, lab test result(s), radiologic studies, CT [facility] scan. 11/13 02:55 Order name: Chem 7; Complete Time: 03:47 [facility] 11/13 02:56 Order name: Urine Dipstick--Ancillary (enter results); Complete Time: 03:47 [facility] 11/13 03:48 Order name: CBC with Diff; Complete Time: 04:13 [facility] 11/13 03:48 Order name: Hepatic Function [facility] 11/13 03:48 Order name: Lipase [facility] 11/13 02:46 Order name: Urine Dipstick-Ancillary (obtain specimen); Complete Time: 02:55 [facility] 11/13 03:48 Order name: IV Saline Lock; Complete Time: 03:51 [facility] 11/13 03:48 Order name: Labs collected and sent; Complete Time: 03:51 kamille Administered Medications: 03:05 Drug: NS 0.9% 1000 ml Route: IV; Rate: 1 bolus; Site: right antecubital; cc3 04:00 Follow up: Response: No adverse reaction; IV Status: Completed infusion; IV Intake: cc3 1000ml Disposition: 11/13/18 04:14 Patient has left against medical advice. Impression: Abdominal tenderness. - Patients states they are going to Home. - Condition is Stable. - Discharge Instructions: Abdominal Pain, Adult, Abdominal Pain, Adult, [id number]. Follow up: Private Physician; When: Upon discharge from the Emergency Department; Reason: Recheck today's complaints, Continuance of care, Re-evaluation by your physician. - Problem is new. - Symptoms have improved. Signatures: Dispatcher [employer] EDMS Danny Howe MD MD cha Therrien, Shelly, POUCH MAKER-C POUCH MA[employer]ER-[facility] Stefany Coffey RN RN ed1 Ashley Judge cc3 Corrections: (The following items were deleted from the chart) 03:57 03:49 Creatinine for Radiology+C.LAB.BRZ ordered. EDOH EDMS 04:05 03:49 Abdomen Pelvis W Con+CT.RAD.BRZ ordered. [facility] EDMS 04:45 04:14 11/13/2018 04:14 Patients has left against medical advice. Impression: Abdominal cc3 tenderness. Patient states they are going to Home. Condition is Stable. Discharge Instructions: Abdominal Pain, Adult, Abdominal Pain, Adult, [id number]. Prescriptions for Bentyl 20 mg Oral Tablet - take 1 tablet by ORAL route every 6 hours As needed; 20 tablet, Pepcid 20 mg Oral Tablet - take 1 tablet by ORAL route every 12 hours for 10 days; 20 tabletFollow up: Private Physician; When: Upon discharge from the Emergency Department; Reason: Recheck today's complaints, Continuance of care, Re-evaluation by your physician. Problem is new. Symptoms have improved. kamille
[2018-11-13 04:19] LABS: ALT/SGPT 21 U/L (12-78); AST/SGOT 19 U/L (15-37); Albumin 3.6 g/dL (3.4-5.0); Alkaline Phosphatase 86 U/L (45-117); Bilirubin Direct < 0.1 mg/dL (0-0.2); Bilirubin Total 0.2 mg/dL (0.2-1.0); Lipase 175 U/L (73-393); Protein, Total 6.6 g/dL (6.4-8.2)
== END 2018-11-13 04:45 | disposition left against medical advice (07) ==
LOC: ER 02:12
DX: R10.9 Unspecified abdominal pain (principal); F31.9 Bipolar disorder, unspecified; F32.9 Major depressive disorder, single episode, unspecified; F20.9 Schizophrenia, unspecified; F17.210 Nicotine dependence, cigarettes, uncomplicated
CPT/HCPCS: 85025; 80048; 36415; 80076; 81003; 83690; J7030; 96360; 99284

== ENCOUNTER 2018-11-15 16:05 | Emergency (ER) | payer OTHER ==
--- OUTSIDE RECORDS SUMMARY | 2018-11-15 16:08 | XMS REPORT | Clinical Summary ---
:1965 Author Organization [facility] Address [address] [place] [address] Care Team Providers Name Role Phone Pcp, [...] Only General Internal Medicine 08/13/2018 Travel after 11/14/2017 Social History Tobacco Use Types Packs/Day Years [...] Procedure Name Priority Date/Time Associated Comments Diagnosis REPORT OF PROCEDURE - 11/13/2018 11:15 ENDOSCOPY SCAN AM CDT RAPID DRUG SCREEN, STAT 11/08/2018 11:52 Results [...] 388 ms QTC Calculation(Bazett) 455 ms P [place] 80 degrees R [place] 68 degrees T [place] 68 degrees Normal sinus rhythm Incomplete right [...] 416 ms QTC Calculation(Bazett) 422 ms P [place] 82 degrees R [place] 85 degrees T [place] 79 degrees Normal sinus rhythm Incomplete right [...] 416 ms QTC Calculation(Bazett) 408 ms P [place] 76 degrees R [place] 76 degrees T [place] 74 degrees Sinus bradycardia Otherwise normal ECG No previous ECGs available ECG 12-LEAD STAT 08/13/2018 10:51 PM CDT after 11/14/2017 Results EKG-SCANNED (11/13/2018 11:15 AM CDT)Only the most recent of3 resultswithin the time period is included. Narrative Performed At Rapid drug screen, urine (11/08/2018 11:52 PM CDT)Only the most recent of3 resultswithin the time period is included. Barbiturate Screen Negative Negative [facility] Benzodiazepine Screen Positive (A) Negative [facility] Cocaine (Metab.) Screen Negative Negative [facility] Methadone Screen Negative Negative [facility] Opiate Screen Negative Negative [facility] Cannabinoid Screen Negative Negative [facility] Amph/Methamph Screen Positive (A) Negative [facility] Phencyclidine Screen Negative Negative [facility] Specimen Urine Narrative Performed At [facility] Cocaine 300 ng/mL Grybzbosfzk85 ng/mL Pzthdygkdjrgiy346 ng/mL Barbiturate 200 ng/mL Qswsaqarkguym76 ng/mL Fzyzxa002 ng/mL Methadone 300 ng/mL Amphetamine/ 1000 ng/mL Methamphetamine This assay provides an unconfirmed qualitative test result for the clinical management of patients in emergency situations. Chain of custody not maintained. Some [id number]-[id number] medications, as well as adulterants, may cause inaccurate results. Clinical correlation should be applied. A more comprehensive drug screen or confirmation of a detected drug may be performed upon request. Performing Organization Address City/State/Zipcode Phone Number [facility] [address] [place] [address] CBC with platelet count + automated diff (11/08/2018 11:08 PM CDT)Only the most recent of3 resultswithin the time period is included. WBC 9.0 4.0 - 10.0 K/L [facility] RBC 3.91 (L) 4.20 - 5.80 M/L [facility] Hemoglobin 12.0 (L) 13.0 - 16.8 GM/DL [facility] Hematocrit 36.3 36.0 - 50.0 % [facility] MCV 92.8 82.0 - 99.0 fL [facility] MCH 30.7 27.0 - 33.0 pg [facility] MCHC 33.1 32.0 - 36.0 GM/DL [facility] RDW 12.9 12.0 - 15.0 % [facility] Platelets 315 150 - 430 K/CU MM [facility] MPV 9.0Comment: 6.0 - 11.5 fL [facility] MPV-Approximately 20% positive bias due to method change. nRBC 0 0 - 0 /100 WBC [facility] % Neutros 64 % [facility] % Lymphs 23 % [facility] % Monos 9 % [facility] % Eos 3 % [facility] % Baso 1 % [facility] # Neutros 5.81 1.80 - 8.00 K/L [facility] # Lymphs 2.03 1.48 - 4.50 K/L [facility] # Monos 0.81 0.00 - 1.30 K/L [facility] # Eos 0.25 0.00 - 0.50 K/L [facility] # Baso 0.10 0.00 - 0.20 K/L [facility] Immature 0 0 - 0 % [facility] Granulocytes-Relative Specimen Blood Performing Organization Address [facility] Phone Number [facility] [address] [place] [address] Phosphorus (11/08/2018 11:08 PM CDT) Phosphorus 3.2 2.5 - 4.5 mg/dL [facility] Specimen Blood Performing Organization Address [facility] Number [facility] [id number] [place] [address] [phone] Magnesium (11/08/2018 11:08 PM CDT) Magnesium 2.1 1.5 - 3.0 mg/dL [facility] Specimen Blood Performing Organization Address [facility]/[place] [address] Ethanol (11/08/2018 11:08 PM CDT)Only the most recent of3 resultswithin the time period is included. Ethanol Lvl <10 <=10 mg/dL [facility] Specimen Blood Performing Organization Address [facility]/[place] [address] [phone] Acetaminophen level (11/08/2018 11:08 PM CDT)Only the most recent of3 resultswithin the time period is included. Acetaminophen Level 9.4 (L) 10.0 - 30.0 ug/mL [facility] Specimen Blood Performing Organization Address [facility] Number [facility] [address] [place] [address] Salicylate level (11/08/2018 11:08 PM CDT)Only the most recent of3 resultswithin the time period is included. Salicylate Lvl <5.0 (L) 20.0 - 30.0 mg/dL [facility] Specimen Blood Performing Organization Address [facility] Number [address] [address] Hepatic function panel (11/08/2018 11:08 PM CDT) Protein, Total 6.6 6.0 - 8.5 gm/dL [facility] Albumin 4.0 3.5 - 5.0 g/dL [facility] Total Bilirubin 0.3 0.1 - 1.3 mg/dL [facility] Bilirubin, Direct 0.1 0.0 - 0.5 mg/dL [facility] Alkaline Phosphatase 81 30 - 115 U/L [facility] AST 22 5 - 40 U/L [facility] ALT 15 6 - 50 U/L [facility] Specimen Blood Performing Organization Address [facility] Phone Number [facility] [address] [place] [address] [phone] Basic Metabolic Panel (11/08/2018 11:08 PM CDT)Only the most recent of2 resultswithin the time period is included. Sodium 137 135 - 148 meq/L [facility] Potassium 3.6 3.5 - 5.5 meq/L [facility] Chloride 104 98 - 106 meq/L [facility] CO2 23 20 - 31 meq/L [facility] BUN 30 (H) 10 - 26 mg/dL [facility] Creatinine 0.91 0.50 - 1.20 mg/dL [facility] Glucose 126 (H) 70 - 110 mg/dL [facility] Calcium 8.7 8.5 - 10.5 mg/dL [facility] EGFR 87Comment: ESTIMATED GFR IS NOT mL/min/1.73 sq m [facility] ACCURATE CREATININE CLEARANCE IN PREDICTING GLOMERULAR FILTRATION RATE. ESTIMATED GFR IS NOT APPLICABLE FOR DIALYSIS PATIENTS. Specimen Blood Performing Organization Address City/[facility] Phone Number [facility] [address] [place] [address] ECG 12 lead (11/08/2018 11:02 PM CDT)Only the most recent of3 resultswithin the time period is included. Specimen Narrative Performed At Ventricular Rate 83 BPM [facility] Atrial Rate 83 BPM P-R Interval 156 ms QRS Duration 106 ms Q-T Interval 388 ms QTC Calculation(Bazett) 455 ms P [place] 80 degrees R [place] 68 degrees T [place] 68 degrees Normal sinus rhythm Incomplete right bundle branch block Borderline ECG Procedure Note Interface, External Ris In - 11/10/2018 4:36 PM CDT Ventricular Rate 83 BPM Atrial Rate 83 BPM P-R Interval 156 ms QRS Duration 106 ms Q-T Interval 388 ms QTC Calculation(Bazett) 455 ms P [place] 80 degrees R [place] 68 degrees T [place] 68 degrees Normal sinus rhythm Incomplete right bundle branch block Borderline ECG Performing Organization Address [facility] Phone Number [facility] Urinalysis w/Microscopic + Reflex to Culture (09/12/2018 1:08 AM CDT) Color, UA Yellow [facility] Clarity, UA Clear [facility] Specific [place], UA 1.015 1.001 - 1.035 [facility] pH, UA 6.0 5.0 - 8.0 [facility] Protein, UA Negative Negative [facility] Glucose, UA Negative Negative [facility] Ketones, UA 20 mg/dL (A) Negative [facility] Bilirubin, UA Negative Negative [facility] Blood, UA Negative Negative [facility] Nitrite, UA Negative Negative [facility] Leukocytes, UA Small (A) Negative [facility] Urobilinogen, UA 2.0 (H) 0.2 - 1.0 mg/dL [facility] RBC, UA 4 /HPF [facility] WBC, UA 21 /HPF [facility] Bacteria, UA Few [facility] Mucus Moderate [facility] Squam Epithel, UA <1 /HPF [facility] Specimen Source [facility] Specimen Urine Performing Organization Address [facility] Phone Number [facility] [address] [place] [address] Urine culture (09/12/2018 1:08 AM CDT) Result 60-69,000 col/mL skin bhupendra [facility] Specimen Urine Performing Organization Address [facility] Phone Number [facility] [address] [place] [address] Lipase (09/11/2018 10:11 PM CDT) Lipase 17 8 - 78 U/L [facility] Specimen Blood Performing Organization Address [facility] Phone Number [facility] [address] [place] [address] [phone] Comprehensive metabolic panel (09/11/2018 10:11 PM CDT) Protein, Total 7.2Comment: Specimen 6.0 - 8.5 gm/dL [facility] markedly hemolyzed Albumin 4.1Comment: Specimen 3.5 - 5.0 g/dL [facility] markedly hemolyzed Alkaline Phosphatase 76 30 - 115 U/L [facility] Total Bilirubin 0.5Comment: Specimen 0.1 - 1.3 mg/dL [facility] markedly hemolyzed Sodium 139 135 - 148 meq/L [facility] Potassium 4.9Comment: Specimen 3.5 - 5.5 meq/L [facility] markedly hemolyzed Chloride 106 98 - 106 meq/L [facility] CO2 23 20 - 31 meq/L [facility] BUN 7 (L) 10 - 26 mg/dL [facility] Creatinine 0.83Comment: Specimen 0.50 - 1.20 mg/dL [facility] markedly hemolyzed Glucose 82 70 - 110 mg/dL [facility] Calcium 9.5 8.5 - 10.5 mg/dL [facility] AST 37Comment: Specimen 5 - 40 U/L [facility] markedly hemolyzed ALT 23Comment: Specimen 6 - 50 U/L [facility] markedly hemolyzed EGFR 97Comment: ESTIMATED GFR mL/min/1.73 sq m [facility] IS NOT ACCURATE CREATININE CLEARANCE IN PREDICTING GLOMERULAR FILTRATION RATE. ESTIMATED GFR IS NOT APPLICABLE FOR DIALYSIS PATIENTS. Specimen Blood Performing Organization Address City/State/Zipcode Phone Number [facility] [address] [place] [address] ECG/EKG Interpretation (09/11/2018 8:44 PM CDT)Only the [...] RBBB. ST segments normal. T waves normal. [place] is normal. Other findings: no other findings. Right sided lead use: right-sided leads not used. Left sided lead use: Posterior leads were not used. Clinical Impression: abnormal ECGECG reviewed and does not meet STEMI criteria. Patient tolerance: Patient tolerated the procedure well with no immediate complications after 11/14/2017 Insurance Payer Benefit Plan / Group Subscriber ID Type Phone Address [facility] NTK xxxxxxxxx
--- OUTSIDE RECORDS SUMMARY | 2018-11-15 16:11 | XMS REPORT ---
:1965 [facility] [address] [place] [address] Care Team Providers Name Role Phone ISIAH [...] Reference Range Comments BARBITURATE URINE (BEAKER) (test lkvw=327) Negative Negative BENZODIAZEPINE SCREEN URINE (BEAKER) (test eqyh=554) Positive Negative COCAINE (METAB.) SCREEN (BEAKER) (test kfcy=1224) Negative Negative METHADONE SCREEN (BEAKER) (test hmeq=3098) Negative Negative OPIATE SCREEN URINE (BEAKER) (test fukk=199) Negative Negative CANNABINOID SCREEN URINE (BEAKER) (test nvtv=882) Negative Negative AMPH/METHAMPH SCREEN (BEAKER) (test htfj=5028) Positive Negative PHENCYCLIDINE SCREEN URINE (BEAKER) (test udhx=343) Negative Negative DRUG CUTOFF CONC.Cocaine 300 ng/mL Cannabinoid 50 ng/mLBenzodiazepine 200 ng/mLBarbiturate 200 ng/ mLPhencyclidine 25 ng/mLOpiate 300 ng/mLMethadone 300 ng/mLAmphetamine/ 1000 ng/mL MethamphetamineThis assay provides an unconfirmed qualitative test result for the clinical management of patients in emergency situations. Chain of custody not maintained. Some gpua-iin-iufuaps medications, as well as adulterants, may cause inaccurate results. Clinical correlation should be applied. A more comprehensivedrug screen or confirmation of a detected drug may be performed upon request.[id number] 23:53:00 Test Item Value Reference Range Comments ETHANOL (BEAKER) (test xafj=635) < mg/dL <=10 [id number] 23:41:00 Test Item Value Reference Range Comments PHOSPHORUS (BEAKER) (test wpad=655) 3.2 mg/dL 2.5-4.5 [id number] 23:41:00 Test Item Value Reference Range Comments MAGNESIUM (BEAKER) (test dbbd=991) 2.1 mg/dL 1.5-3.0 BASIC METABOLIC [id number] 23:41:00 Test Item Value Reference Range Comments SODIUM (BEAKER) (test 137 meq/L 135-148 uayd=210) POTASSIUM (BEAKER) (test 3.6 meq/L 3.5-5.5 bzjl=388) CHLORIDE (BEAKER) (test 104 meq/L 98-106 gjjy=297) CO2 (BEAKER) (test 23 meq/L 20-31 atre=535) BLOOD UREA NITROGEN 30 mg/dL 10-26 (BEAKER) (test mmrd=514) CREATININE (BEAKER) (test 0.91 mg/dL 0.50-1.20 buld=313) GLUCOSE RANDOM (BEAKER) 126 mg/dL 70-110 (test hvlx=028) CALCIUM (BEAKER) (test 8.7 mg/dL 8.5-10.5 fjtc=224) EGFR (BEAKER) (test 87 mL/min/1.73 sq m ESTIMATED GFR IS NOT jzft=9182) ACCURATE CREATININE CLEARANCE IN PREDICTING GLOMERULAR FILTRATION RATE. ESTIMATED GFR IS NOT APPLICABLE FOR DIALYSIS PATIENTS. HEPATIC FUNCTION [id number] 23:41:00 Test Item Value Reference Range Comments TOTAL PROTEIN (BEAKER) (test dpht=270) 6.6 gm/dL 6.0-8.5 ALBUMIN (BEAKER) (test unqy=0850) 4.0 g/dL 3.5-5.0 BILIRUBIN TOTAL (BEAKER) (test jqqz=890) 0.3 mg/dL 0.1-1.3 BILIRUBIN DIRECT (BEAKER) (test uicb=609) 0.1 mg/dL 0.0-0.5 ALKALINE PHOSPHATASE (BEAKER) (test zhuf=389) 81 U/L 30-115 AST (SGOT) (BEAKER) (test gahz=450) 22 U/L 5-40 ALT (SGPT) (BEAKER) (test pofs=111) 15 U/L 6-50 SALICYLATE [id number] 23:39:00 Test Item Value Reference Range Comments SALICYLATE LEVEL (BEAKER) (test hmpr=603) < mg/dL 20.0-30.0 ACETAMINOPHEN [id number] 23:38:00 Test Item Value Reference Range Comments ACETAMINOPHEN LEVEL (BEAKER) (test lidg=346) 9.4 ug/mL 10.0-30.0 CBC W/PLT COUNT & AUTO [id number] 23:15:00 Test Item Value Reference Range Comments WHITE BLOOD CELL COUNT (BEAKER) 9.0 K/ L 4.0-10.0 (test vxtr=810) RED BLOOD CELL COUNT (BEAKER) 3.91 M/ L 4.20-5.80 (test ktfl=480) HEMOGLOBIN (BEAKER) (test 12.0 GM/DL 13.0-16.8 dyvj=098) HEMATOCRIT (BEAKER) (test 36.3 % 36.0-50.0 nrdk=752) MEAN CORPUSCULAR VOLUME 92.8 fL 82.0-99.0 (BEAKER) (test nlfk=300) MEAN CORPUSCULAR HEMOGLOBIN 30.7 pg 27.0-33.0 (BEAKER) (test yvnb=205) MEAN CORPUSCULAR HEMOGLOBIN 33.1 GM/DL 32.0-36.0 CONC (BEAKER) (test owpe=278) RED CELL DISTRIBUTION WIDTH 12.9 % 12.0-15.0 (BEAKER) (test tmhm=265) PLATELET COUNT (BEAKER) (test 315 K/CU MM 150-430 hbnl=079) MEAN PLATELET VOLUME (BEAKER) 9.0 fL 6.0-11.5 MPV-Approximately 20% (test hxlm=478) positive bias due to method change. NUCLEATED RED BLOOD CELLS 0 /100 WBC 0-0 (BEAKER) (test xose=392) NEUTROPHILS RELATIVE PERCENT 64 % (BEAKER) (test qqbq=702) LYMPHOCYTES RELATIVE PERCENT 23 % (BEAKER) (test tqrj=830) MONOCYTES RELATIVE PERCENT 9 % (BEAKER) (test ayki=416) EOSINOPHILS RELATIVE PERCENT 3 % (BEAKER) (test pdqx=636) BASOPHILS RELATIVE PERCENT 1 % (BEAKER) (test ekep=217) NEUTROPHILS ABSOLUTE COUNT 5.81 K/ L 1.80-8.00 (BEAKER) (test mvpc=459) LYMPHOCYTES ABSOLUTE COUNT 2.03 K/ L 1.48-4.50 (BEAKER) (test cztc=107) MONOCYTES ABSOLUTE COUNT 0.81 K/ L 0.00-1.30 (BEAKER) (test llxa=484) EOSINOPHILS ABSOLUTE COUNT 0.25 K/ L 0.00-0.50 (BEAKER) (test ulfa=542) BASOPHILS ABSOLUTE COUNT 0.10 K/ L 0.00-0.20 (BEAKER) (test jsfc=225) IMMATURE GRANULOCYTES-RELATIVE 0 % 0-0 PERCENT (BEAKER) (test oexm=3770) URINALYSIS [id number] 00:50:00 Test Item Value Reference Range Comments [...] RESULTS VERIFIED WITH AUTO-DILUTION PROCEDURES. COMPREHENSIVE METABOLIC [id number] 17:20:00 Test Item Value Reference Range Comments [...] NORMAL <50 MG 1 NORMAL code=LIPINDEX) Index/DL [id number] 17:20:00 Test Item Value Reference Range Comments MAGNESIUM (test code=MAG) 2.7 MG/DL 1.6-2.6 COMPREHENSIVE METABOLIC [id number] 17:17:00 Test Item Value Reference Range Comments [...] NORMAL <50 MG 1 NORMAL code=LIPINDEX) Index/DL [id number] 17:17:00 Test Item Value Reference Range Comments MAGNESIUM (test code=MAG) 2.7 MG/DL 1.6-2.6 CBC W/AUTO [id number] 17:03:00 Test Item Value Reference Range Comments [...] code=NRBC#) 0.00 K/mm3 0.00-0.05 RAPID DRUG SCREEN, [id number] 01:40:00 Test Item Value Reference Range Comments BARBITURATE URINE (BEAKER) (test gken=392) Negative Negative BENZODIAZEPINE SCREEN URINE (BEAKER) (test Negative Negative ajkb=671) COCAINE (METAB.) SCREEN (BEAKER) (test ferq=4705) Negative Negative METHADONE SCREEN (BEAKER) (test vfpu=2597) Negative Negative OPIATE SCREEN URINE (BEAKER) (test vvhl=408) Negative Negative CANNABINOID SCREEN URINE (BEAKER) (test fibu=530) Negative Negative AMPH/METHAMPH SCREEN (BEAKER) (test atqv=7570) Negative Negative PHENCYCLIDINE SCREEN URINE (BEAKER) (test dsqv=143) Negative Negative DRUG CUTOFF CONC.Cocaine 300 ng/mL Cannabinoid 50 ng/mLBenzodiazepine 200 ng/mLBarbiturate 200 ng/ mLPhencyclidine 25 ng/mLOpiate 300 ng/mLMethadone 300 ng/mLAmphetamine/ 1000 ng/mL MethamphetamineThis assay provides an unconfirmed qualitative test result for the clinical management of patients in emergency situations. Chain of custody not maintained. Some lmmd-xgf-fgpqnut medications, as well as adulterants, may cause inaccurate results. Clinical correlation should be applied. A more comprehensivedrug screen or confirmation of a detected drug may be performed upon request.URINALYSIS W/ REFLEX URINE [id number] 01:23:00 Test Item Value Reference Range Comments COLOR (BEAKER) (test mymb=069) Yellow CLARITY (BEAKER) (test wwaq=833) Clear SPECIFIC GRAVITY UA (BEAKER) (test ajwx=566) 1.015 1.001-1.035 PH UA (BEAKER) (test iwcl=826) 6.0 5.0-8.0 PROTEIN UA (BEAKER) (test senf=056) Negative Negative GLUCOSE UA (BEAKER) (test kday=005) Negative Negative KETONES UA (BEAKER) (test iahr=799) 20 mg/dL Negative BILIRUBIN UA (BEAKER) (test miny=767) Negative Negative BLOOD UA (BEAKER) (test aklr=572) Negative Negative NITRITE UA (BEAKER) (test aaor=774) Negative Negative LEUKOCYTE ESTERASE UA (BEAKER) (test burd=916) Small Negative UROBILINOGEN UA (BEAKER) (test bfzi=022) 2.0 mg/dL 0.2-1.0 RBC UA (BEAKER) (test ruve=579) 4 /HPF WBC UA (BEAKER) (test myzq=205) 21 /HPF BACTERIA (BEAKER) (test jlbz=898) Few MUCUS (BEAKER) (test xnjt=0782) Moderate SQUAMOUS EPITHELIAL (BEAKER) (test mwwy=940) < /HPF SOURCE(BEAKER) (test ipza=9775) [id number] 23:00:00 Test Item Value Reference Range Comments LIPASE (BEAKER) (test gfvo=552) 17 U/L 8-78 COMPREHENSIVE METABOLIC [id number] 23:00:00 Test Item Value Reference Range Comments TOTAL PROTEIN (BEAKER) 7.2 gm/dL 6.0-8.5 Specimen markedly (test ffed=337) hemolyzed ALBUMIN (BEAKER) (test 4.1 g/dL 3.5-5.0 Specimen markedly jzze=2591) hemolyzed ALKALINE PHOSPHATASE 76 U/L 30-115 (BEAKER) (test gbql=498) BILIRUBIN TOTAL (BEAKER) 0.5 mg/dL 0.1-1.3 Specimen markedly (test wlvg=522) hemolyzed SODIUM (BEAKER) (test 139 meq/L 135-148 qnji=102) POTASSIUM (BEAKER) (test 4.9 meq/L 3.5-5.5 Specimen markedly kjxx=420) hemolyzed CHLORIDE (BEAKER) (test 106 meq/L 98-106 xoag=933) CO2 (BEAKER) (test 23 meq/L 20-31 ldwt=217) BLOOD UREA NITROGEN 7 mg/dL 10-26 (BEAKER) (test uzgc=660) CREATININE (BEAKER) (test 0.83 mg/dL 0.50-1.20 Specimen markedly nrqr=383) hemolyzed GLUCOSE RANDOM (BEAKER) 82 mg/dL 70-110 (test xfat=212) CALCIUM (BEAKER) (test 9.5 mg/dL 8.5-10.5 pcjp=768) AST (SGOT) (BEAKER) (test 37 U/L 5-40 Specimen markedly zlkz=784) hemolyzed ALT (SGPT) (BEAKER) (test 23 U/L 6-50 Specimen markedly imtd=460) hemolyzed EGFR (BEAKER) (test 97 mL/min/1.73 sq m ESTIMATED GFR IS NOT yzdm=0775) ACCURATE CREATININE CLEARANCE IN PREDICTING GLOMERULAR FILTRATION RATE. ESTIMATED GFR IS NOT APPLICABLE FOR DIALYSIS PATIENTS. ACETAMINOPHEN [id number] 22:57:00 Test Item Value Reference Range Comments ACETAMINOPHEN LEVEL (BEAKER) < ug/mL 10.0-30.0 Specimen markedly hemolyzed (test hhnb=897) SALICYLATE [id number] 22:52:00 Test Item Value Reference Range Comments SALICYLATE LEVEL (BEAKER) (test mkjl=383) < mg/dL 20.0-30.0 [id number] 22:47:00 Test Item Value Reference Range Comments ETHANOL (BEAKER) (test srrg=047) < mg/dL <=10 CBC W/PLT COUNT & AUTO [id number] 22:24:00 Test Item Value Reference Range Comments WHITE BLOOD CELL COUNT (BEAKER) 5.5 K/ L 4.0-10.0 (test jopl=103) RED BLOOD CELL COUNT (BEAKER) 4.12 M/ L 4.20-5.80 (test kxmb=352) HEMOGLOBIN (BEAKER) (test 13.0 GM/DL 13.0-16.8 odzt=510) HEMATOCRIT (BEAKER) (test 39.0 % 36.0-50.0 eajw=734) MEAN CORPUSCULAR VOLUME 94.7 fL 82.0-99.0 (BEAKER) (test krtx=065) MEAN CORPUSCULAR HEMOGLOBIN 31.6 pg 27.0-33.0 (BEAKER) (test dadx=339) MEAN CORPUSCULAR HEMOGLOBIN 33.3 GM/DL 32.0-36.0 CONC (BEAKER) (test vrxr=943) RED CELL DISTRIBUTION WIDTH 13.6 % 12.0-15.0 (BEAKER) (test cjqf=516) PLATELET COUNT (BEAKER) (test 321 K/CU MM 150-430 qqts=658) MEAN PLATELET VOLUME (BEAKER) 8.9 fL 6.0-11.5 MPV-Approximately 20% (test vazy=585) positive bias due to method change. NUCLEATED RED BLOOD CELLS 0 /100 WBC 0-0 (BEAKER) (test vffr=709) NEUTROPHILS RELATIVE PERCENT 59 % (BEAKER) (test pfzd=207) LYMPHOCYTES RELATIVE PERCENT 31 % (BEAKER) (test kqow=432) MONOCYTES RELATIVE PERCENT 7 % (BEAKER) (test hfpt=426) EOSINOPHILS RELATIVE PERCENT 2 % (BEAKER) (test jbim=667) BASOPHILS RELATIVE PERCENT 1 % (BEAKER) (test dgnv=373) NEUTROPHILS ABSOLUTE COUNT 3.21 K/ L 1.80-8.00 (BEAKER) (test gnsr=167) LYMPHOCYTES ABSOLUTE COUNT 1.68 K/ L 1.48-4.50 (BEAKER) (test jcqp=174) MONOCYTES ABSOLUTE COUNT 0.38 K/ L 0.00-1.30 (BEAKER) (test pblb=281) EOSINOPHILS ABSOLUTE COUNT 0.12 K/ L 0.00-0.50 (BEAKER) (test yzot=991) BASOPHILS ABSOLUTE COUNT 0.05 K/ L 0.00-0.20 (BEAKER) (test ydvn=128) IMMATURE GRANULOCYTES-RELATIVE 0 % 0-0 PERCENT (BEAKER) (test xzub=8797) RAPID DRUG SCREEN, [id number] 23:37:00 Test Item Value Reference Range Comments BARBITURATE URINE (BEAKER) (test phrq=249) Negative Negative BENZODIAZEPINE SCREEN URINE (BEAKER) (test Negative Negative vwuy=914) COCAINE (METAB.) SCREEN (BEAKER) (test uxgw=6245) Negative Negative METHADONE SCREEN (BEAKER) (test xmmj=0590) Negative Negative OPIATE SCREEN URINE (BEAKER) (test wxrj=175) Negative Negative CANNABINOID SCREEN URINE (BEAKER) (test eoqs=777) Negative Negative AMPH/METHAMPH SCREEN (BEAKER) (test hkmm=7927) Positive Negative PHENCYCLIDINE SCREEN URINE (BEAKER) (test opeq=327) Negative Negative DRUG CUTOFF CONC.Cocaine 300 ng/mL Cannabinoid 50 ng/mLBenzodiazepine 200 ng/mLBarbiturate 200 ng/ mLPhencyclidine 25 ng/mLOpiate 300 ng/mLMethadone 300 ng/mLAmphetamine/ 1000 ng/mL MethamphetamineThis assay provides an unconfirmed qualitative test result for the clinical management of patients in emergency situations. Chain of custody not maintained. Some btpb-hyk-zamefzy medications, as well as adulterants, may cause inaccurate results. Clinical correlation should be applied. A more comprehensivedrug screen or confirmation of a detected drug may be performed upon request.BASIC METABOLIC [id number] 23:37:00 Test Item Value Reference Range Comments SODIUM (BEAKER) (test 141 meq/L 135-148 vizq=909) POTASSIUM (BEAKER) (test 3.2 meq/L 3.5-5.5 rszl=698) CHLORIDE (BEAKER) (test 107 meq/L 98-106 ucxt=173) CO2 (BEAKER) (test 26 meq/L 20-31 nwky=136) BLOOD UREA NITROGEN 18 mg/dL 10-26 (BEAKER) (test sjsd=197) CREATININE (BEAKER) (test 0.79 mg/dL 0.50-1.20 wdlz=146) GLUCOSE RANDOM (BEAKER) 94 mg/dL 70-110 (test qzki=510) CALCIUM (BEAKER) (test 9.1 mg/dL 8.5-10.5 yfor=048) EGFR (BEAKER) (test 102 mL/min/1.73 sq m ESTIMATED GFR IS NOT mhwb=2795) ACCURATE CREATININE CLEARANCE IN PREDICTING GLOMERULAR FILTRATION RATE. ESTIMATED GFR IS NOT APPLICABLE FOR DIALYSIS PATIENTS. SALICYLATE [id number] 23:28:00 Test Item Value Reference Range Comments SALICYLATE LEVEL (BEAKER) (test iyuk=026) < mg/dL 20.0-30.0 ACETAMINOPHEN [id number] 23:25:00 Test Item Value Reference Range Comments ACETAMINOPHEN LEVEL (BEAKER) (test xjgi=108) 8.6 ug/mL 10.0-30.0 [id number] 23:23:00 Test Item Value Reference Range Comments ETHANOL (BEAKER) (test qpco=858) < mg/dL <=10 CBC W/PLT COUNT & AUTO [id number] 23:03:00 Test Item Value Reference Range Comments WHITE BLOOD CELL COUNT (BEAKER) 5.5 K/ L 4.0-10.0 (test hntd=137) RED BLOOD CELL COUNT (BEAKER) 3.90 M/ L 4.20-5.80 (test remt=383) HEMOGLOBIN (BEAKER) (test 12.3 GM/DL 13.0-16.8 omuu=691) HEMATOCRIT (BEAKER) (test 37.0 % 36.0-50.0 zyug=788) MEAN CORPUSCULAR VOLUME 94.9 fL 82.0-99.0 (BEAKER) (test sssr=382) MEAN CORPUSCULAR HEMOGLOBIN 31.5 pg 27.0-33.0 (BEAKER) (test xooe=688) MEAN CORPUSCULAR HEMOGLOBIN 33.2 GM/DL 32.0-36.0 CONC (BEAKER) (test prws=697) RED CELL DISTRIBUTION WIDTH 13.3 % 12.0-15.0 (BEAKER) (test llfz=323) PLATELET COUNT (BEAKER) (test 294 K/CU MM 150-430 ogyz=457) MEAN PLATELET VOLUME (BEAKER) 8.6 fL 6.0-11.5 MPV-Approximately 20% (test fpkn=850) positive bias due to method change. NUCLEATED RED BLOOD CELLS 0 /100 WBC 0-0 (BEAKER) (test fkrz=976) NEUTROPHILS RELATIVE PERCENT 50 % (BEAKER) (test cdkj=980) LYMPHOCYTES RELATIVE PERCENT 37 % (BEAKER) (test cgtd=755) MONOCYTES RELATIVE PERCENT 7 % (BEAKER) (test bxba=262) EOSINOPHILS RELATIVE PERCENT 5 % (BEAKER) (test icqx=318) BASOPHILS RELATIVE PERCENT 1 % (BEAKER) (test nujf=439) NEUTROPHILS ABSOLUTE COUNT 2.73 K/ L 1.80-8.00 (BEAKER) (test fald=364) LYMPHOCYTES ABSOLUTE COUNT 2.05 K/ L 1.48-4.50 (BEAKER) (test chdl=414) MONOCYTES ABSOLUTE COUNT 0.39 K/ L 0.00-1.30 (BEAKER) (test ojhr=901) EOSINOPHILS ABSOLUTE COUNT 0.26 K/ L 0.00-0.50 (BEAKER) (test aurr=051) BASOPHILS ABSOLUTE COUNT 0.07 K/ L 0.00-0.20 (BEAKER) (test uxyu=114) IMMATURE GRANULOCYTES-RELATIVE 0 % 0-0 PERCENT (BEAKER) (test iyco=2788) COMPREHENSIVE METABOLIC [id number] 05:21:00 Test Item Value Reference Range Comments [...] MG 1 NORMAL code=LIPINDEX) Index/DL CBC W/AUTO [id number] 04:58:00 Test Item Value Reference Range Comments [...] code=NRBC#) 0.00 K/mm3 0.00-0.05 RAPID DRUG SCREEN, [id number] 10:16:00 Test Item Value Reference Range Comments BARBITURATE URINE (BEAKER) (test fpzm=495) Negative Negative BENZODIAZEPINE SCREEN URINE (BEAKER) (test Negative Negative pysp=163) COCAINE (METAB.) SCREEN (BEAKER) (test ezus=9752) Negative Negative METHADONE SCREEN (BEAKER) (test sbiy=4886) Negative Negative OPIATE SCREEN URINE (BEAKER) (test lfoh=081) Negative Negative CANNABINOID SCREEN URINE (BEAKER) (test usgj=409) Negative Negative AMPH/METHAMPH SCREEN (BEAKER) (test fyhr=2798) Negative Negative PHENCYCLIDINE SCREEN URINE (BEAKER) (test bgnn=119) Negative Negative OXYCODONE SCREEN URINE (BEAKER) (test ecbr=6589) Negative Negative DRUG CUTOFF CONC.Cocaine 300 ng/mL Cannabinoid 50 ng/mL Benzodiazepine 200 ng/mLBarbiturate 200 ng/ mLPhencyclidine 25 ng/mLOpiate 300 ng/mLMethadone 300 ng/mLAmphetamine/ 1000 ng/mL MethamphetamineOxycodone 300 ng/mLThis assay provides an unconfirmed qualitative test result for the clinical management of patients in emergency situations. Chain of custody not maintained. Some pjnt-krv-pkhdsni medications, as well as adulterants, may cause inaccurate results. Clinical correlation should be applied. A more comprehensive drug screen or confirmation of a detected drug may be performed upon request.URINALYSIS W/ [id number] 08:52:00 Test Item Value Reference Range Comments COLOR (BEAKER) (test sked=191) Yellow CLARITY (BEAKER) (test fkyo=174) Clear SPECIFIC GRAVITY UA (BEAKER) (test hvlp=787) 1.013 1.001-1.035 PH UA (BEAKER) (test mucr=941) 6.0 5.0-8.0 PROTEIN UA (BEAKER) (test cqzb=872) Negative Negative GLUCOSE UA (BEAKER) (test ginq=069) Negative Negative KETONES UA (BEAKER) (test ewsk=601) Negative Negative BILIRUBIN UA (BEAKER) (test sfyf=154) Negative Negative BLOOD UA (BEAKER) (test msxa=244) Negative Negative NITRITE UA (BEAKER) (test hslo=381) Negative Negative LEUKOCYTE ESTERASE UA (BEAKER) (test nzgu=441) Negative Negative UROBILINOGEN UA (BEAKER) (test fmhz=147) 0.2 mg/dL 0.2-1.0 RBC UA (BEAKER) (test xvjh=408) 1 /HPF WBC UA (BEAKER) (test qiac=107) < /HPF MUCUS (BEAKER) (test rqjx=1945) Rare SOURCE(BEAKER) (test hbqy=5351) Urine, Voided TSH/FREE T4 IF [id number] 01:43:00 Test Item Value Reference Range Comments THYROID STIMULATING HORMONE (BEAKER) (test 1.16 uIU/mL 0.35-4.94 calq=751) HEPATIC FUNCTION [id number] 01:07:00 Test Item Value Reference Range Comments TOTAL PROTEIN (BEAKER) (test nvwd=828) 6.4 gm/dL 6.0-8.3 ALBUMIN (BEAKER) (test ehbq=9524) 4.0 g/dL 3.5-5.0 BILIRUBIN TOTAL (BEAKER) (test demc=816) 0.5 mg/dL 0.2-1.2 BILIRUBIN DIRECT (BEAKER) (test alye=851) 0.2 mg/dL 0.1-0.5 ALKALINE PHOSPHATASE (BEAKER) (test zppc=168) 74 U/L 40-150 AST (SGOT) (BEAKER) (test gjaj=708) 38 U/L 5-34 ALT (SGPT) (BEAKER) (test ysef=118) 47 U/L 6-55 COMPREHENSIVE METABOLIC [id number] 01:07:00 Test Item Value Reference Range Comments TOTAL PROTEIN (BEAKER) 6.4 gm/dL 6.0-8.3 (test wssp=155) ALBUMIN (BEAKER) (test 4.0 g/dL 3.5-5.0 jxam=9698) ALKALINE PHOSPHATASE 74 U/L 40-150 (BEAKER) (test vhqf=818) BILIRUBIN TOTAL (BEAKER) 0.5 mg/dL 0.2-1.2 (test maqp=839) SODIUM (BEAKER) (test 140 meq/L 136-145 uskh=992) POTASSIUM (BEAKER) (test 3.8 meq/L 3.5-5.1 uqwi=352) CHLORIDE (BEAKER) (test 109 meq/L 98-107 fbqz=114) CO2 (BEAKER) (test 23 meq/L 22-29 mdvz=815) BLOOD UREA NITROGEN 22 mg/dL 7-21 (BEAKER) (test wgxf=818) CREATININE (BEAKER) (test 0.74 mg/dL 0.57-1.25 beyt=246) GLUCOSE RANDOM (BEAKER) 100 mg/dL 70-105 (test arhi=400) CALCIUM (BEAKER) (test 9.0 mg/dL 8.4-10.2 ahdn=396) AST (SGOT) (BEAKER) (test 38 U/L 5-34 xhjl=056) ALT (SGPT) (BEAKER) (test 47 U/L 6-55 irki=980) EGFR (BEAKER) (test 111 mL/min/1.73 sq ESTIMATED GFR IS NOT ankv=4561) m ACCURATE CREATININE CLEARANCE IN PREDICTING GLOMERULAR FILTRATION RATE. ESTIMATED GFR IS NOT APPLICABLE FOR DIALYSIS PATIENTS. [id number] 01:03:00 Test Item Value Reference Range Comments ETHANOL (BEAKER) (test gvwv=594) < mg/dL <=10 LACTIC ACID, VENOUS, WHOLE [id number] 01:01:00 Test Item Value Reference Range Comments LACTATE BLOOD VENOUS (2) (BEAKER) (test 0.5 mmol/L 0.5-2.2 qtmo=3974) Effective 09/22/2015: Units/Reference Range ChangeNew: 0.5-2.2 mmol/L Previous: 5 -20 mg/dLCBC W/PLT COUNT & AUTO [id number] 00:51:00 Test Item Value Reference Range Comments WHITE BLOOD CELL COUNT (BEAKER) (test tpaa=185) 8.1 K/ L 3.5-10.5 RED BLOOD CELL COUNT (BEAKER) (test rtjw=004) 3.77 M/ L 4.63-6.08 HEMOGLOBIN (BEAKER) (test yjzw=373) 11.6 GM/DL 13.7-17.5 HEMATOCRIT (BEAKER) (test yjke=925) 35.8 % 40.1-51.0 MEAN CORPUSCULAR VOLUME (BEAKER) (test ccuw=702) 95.0 fL 79.0-92.2 MEAN CORPUSCULAR HEMOGLOBIN (BEAKER) (test 30.8 pg 25.7-32.2 ihks=517) MEAN CORPUSCULAR HEMOGLOBIN CONC (BEAKER) (test 32.4 GM/DL 32.3-36.5 ynmk=578) RED CELL DISTRIBUTION WIDTH (BEAKER) (test 13.8 % 11.6-14.4 nhqe=055) PLATELET COUNT (BEAKER) (test bkwe=375) 261 K/CU MM 150-450 MEAN PLATELET VOLUME (BEAKER) (test xffb=240) 9.0 fL 9.4-12.4 NUCLEATED RED BLOOD CELLS (BEAKER) (test 0 /100 WBC 0-0 djba=116) NEUTROPHILS RELATIVE PERCENT (BEAKER) (test 68 % odjo=357) LYMPHOCYTES RELATIVE PERCENT (BEAKER) (test 23 % pnxo=435) MONOCYTES RELATIVE PERCENT (BEAKER) (test 6 % vwgu=479) EOSINOPHILS RELATIVE PERCENT (BEAKER) (test 2 % zdii=569) BASOPHILS RELATIVE PERCENT (BEAKER) (test 1 % nbhh=426) NEUTROPHILS ABSOLUTE COUNT (BEAKER) (test 5.48 K/ L 1.78-5.38 iont=010) LYMPHOCYTES ABSOLUTE COUNT (BEAKER) (test 1.82 K/ L 1.32-3.57 svcv=642) MONOCYTES ABSOLUTE COUNT (BEAKER) (test 0.49 K/ L 0.30-0.82 vsrv=540) EOSINOPHILS ABSOLUTE COUNT (BEAKER) (test 0.17 K/ L 0.04-0.54 qeyj=275) BASOPHILS ABSOLUTE COUNT (BEAKER) (test 0.09 K/ L 0.01-0.08 znpq=618) IMMATURE GRANULOCYTES-RELATIVE PERCENT (BEAKER) 0 % 0-1 (test czvs=0505) POCT-GLUCOSE [id number] 00:47:00 Test Item Value Reference Range Comments POC-GLUCOSE METER (BEAKER) 111 mg/dL 70-110 TESTED AT [facility] [address] (test omxx=7064) [facility] [id number]
[2018-11-15 16:58] LABS: Absolute Lymphocytes (CBC) 1.5 K/uL (0.7-4.9); Eosinophils % 5.8 % (0-4.4); Hematocrit 36.7 % (39.6-49.0); MPV 7.5 fL (7.6-11.3); Monocytes % 6.9 % (3.3-12.3); RBC Red Blood Cell Count 3.96 M/uL (4.33-5.43)
[2018-11-15 17:04] LABS: Protime INR 1.01
[2018-11-15 17:10] LABS: Barbiturates NEGATIVE (NEGATIVE); Benzodiazepines NEGATIVE (NEGATIVE); Cocaine NEGATIVE (NEGATIVE); METHAMPHETAM NEGATIVE (NEGATIVE); Methadone NEGATIVE (NEGATIVE); Opiates NEGATIVE (NEGATIVE); Phencyclidine NEGATIVE (NEGATIVE); THC Cannibis NEGATIVE (NEGATIVE)
[2018-11-15 17:27] LABS: ALT/SGPT 23 U/L (12-78); AST/SGOT 18 U/L (15-37); Albumin 3.7 g/dL (3.4-5.0); Alkaline Phosphatase 79 U/L (45-117); BUN Blood Urea Nitrogen 16 mg/dL (7-18); Bicarbonate 29 mmol/L (21-32); Bilirubin Direct < 0.1 mg/dL (0-0.2); Bilirubin Total 0.2 mg/dL (0.2-1.0); Glucose Level 88 mg/dL (74-106); Potassium 3.8 mmol/L (3.5-5.1); Sodium Level 143 mmol/L (136-145)
[2018-11-15 17:46] LABS: Urine Blood NEGATIVE (NEG); Urine Glucose NEGATIVE (NEG); Urine Protein NEGATIVE (NEG)
[2018-11-15] MEDS ORDERED: NA CHLORIDE 0.9% 1,000 ML ONE (18:04)
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
[2018-11-15] MEDS ORDERED: IBUPROFEN 400 MG TAB ONE (21:03)
--- NOTE | 2018-11-15 23:20 | EKG ---
Test Date: 2018-11-15 Test Time: 16:21:59 Orthopedic Designer: JAKE MEASUREMENT RESULTS: Intervals: Rate: 77 NV: 134 QRSD: 112 QT: 358 QTc: 405 [place]: P: 80 NV: 134 QRS: 88 T: 73 INTERPRETIVE STATEMENTS: Normal sinus rhythm Incomplete right bundle branch block Borderline ECG Compared to ECG 11/12/2018 02:42:12 Sinus arrhythmia no longer present Electronically Signed On 11-15-18 23:19:29 CDT by Amari Cochran
== END 2018-11-15 21:07 | disposition home or self-care (01) ==
LOC: ER 16:05
DX: R46.89 Other symptoms and signs involving appearance and behavior (principal); F31.9 Bipolar disorder, unspecified; F20.9 Schizophrenia, unspecified; F17.210 Nicotine dependence, cigarettes, uncomplicated
CPT/HCPCS: 93005; 85025; 80048; 36415; 80320; 80329 ×2; 85610; 80076; 80307 ×8; 81003; 96360; 99285; J7030

== ENCOUNTER 2018-11-17 13:05 | Emergency (ER) | payer OTHER ==
--- OUTSIDE RECORDS SUMMARY | 2018-11-17 13:07 | XMS REPORT | Clinical Summary ---
:1965 Author Organization [facility] Address [address] [place] [address] Care Team Providers Name Role Phone Pcp, [...] Only General Internal Medicine 08/13/2018 Travel after 11/16/2017 Social History Tobacco Use Types Packs/Day Years [...] 388 ms QTC Calculation(Bazett) 455 ms P [place] 80 degrees R [place] 68 degrees T [place] 68 degrees Normal sinus rhythm Incomplete right [...] 416 ms QTC Calculation(Bazett) 422 ms P [place] 82 degrees R [place] 85 degrees T [place] 79 degrees Normal sinus rhythm Incomplete right [...] 416 ms QTC Calculation(Bazett) 408 ms P [place] 76 degrees R [place] 76 degrees T [place] 74 degrees Sinus bradycardia Otherwise normal ECG No previous ECGs available ECG 12-LEAD STAT 08/13/2018 10:51 PM CDT after 11/16/2017 Results EKG-SCANNED (11/13/2018 11:15 AM CDT)Only the most recent of3 resultswithin the time period is included. Narrative Performed At [facility] drug screen, urine (11/08/2018 11:52 PM CDT)Only the most recent of3 resultswithin the time period is included. Barbiturate Screen Negative Negative [facility] Benzodiazepine Screen Positive (A) Negative [facility] Cocaine (Metab.) Screen Negative Negative [facility] Methadone Screen Negative Negative [facility] Opiate Screen Negative Negative [facility] Cannabinoid Screen Negative Negative [facility] Amph/Methamph Screen Positive (A) Negative [facility] Phencyclidine Screen Negative Negative [facility] Specimen Urine Narrative Performed At [facility] Cocaine 300 ng/mL Ytyebfixetj26 ng/mL Iffqmtcvvmkqkk124 ng/mL Barbiturate 200 ng/mL Ipwkxbysdirsa63 ng/mL Yceayg231 ng/mL Methadone 300 ng/mL Amphetamine/ 1000 ng/mL Methamphetamine This assay provides an unconfirmed qualitative test result for the clinical management of patients in emergency situations. Chain of custody not maintained. Some vzjj-bjv-keyaefk medications, as well as adulterants, may cause inaccurate results. Clinical correlation should be applied. A more comprehensive drug screen or confirmation of a detected drug may be performed upon request. Performing Organization Address City/State/Zipcode Phone Number [facility] [address] [place] [address] [phone] CBC with platelet count + automated diff (11/08/2018 11:08 PM CDT)Only the most recent of3 resultswithin the time period is included. WBC 9.0 4.0 - 10.0 K/L [facility] RBC 3.91 (L) 4.20 - 5.80 M/L [facility] Hemoglobin 12.0 (L) 13.0 - 16.8 GM/DL [facility] Hematocrit 36.3 36.0 - 50.0 % [facility] MCV 92.8 82.0 - 99.0 fL [facility] MCH 30.7 27.0 - 33.0 pg [facility] MCHC 33.1 32.0 - 36.0 GM/DL [facility] RDW 12.9 12.0 - 15.0 % [facility] Platelets 315 150 - 430 K/CU MM [facility] MPV 9.0Comment: 6.0 - 11.5 fL [facility] MPV-Approximately 20% positive bias due to method change. nRBC 0 0 - 0 /[address] [facility] % Neutros 64 % [facility] % Lymphs 23 % [facility] % Monos 9 % [facility] % Eos 3 % [facility] % Baso 1 % [facility] # Neutros 5.81 1.80 - 8.00 K/L [facility] # Lymphs 2.03 1.48 - 4.50 K/L [facility] # Monos 0.81 0.00 - 1.30 K/L [facility] # Eos 0.25 0.00 - 0.50 K/L [facility] # Baso 0.10 0.00 - 0.20 K/L [facility] Immature 0 0 - 0 % [facility] Granulocytes-Relative Specimen Blood Performing Organization Address [facility] Phone Number [facility] [address] [place] [address] [phone] Phosphorus (11/08/2018 11:08 PM CDT) Phosphorus 3.2 2.5 - 4.5 mg/dL [facility] Specimen Blood Performing Organization Address [facility] Number [facility] [id number] [place] [address] Magnesium (11/08/2018 11:08 PM CDT) Magnesium 2.1 1.5 - 3.0 mg/dL [facility] Specimen Blood Performing Organization Address [facility] [address] [phone] Ethanol (11/08/2018 11:08 PM CDT)Only the most recent of3 resultswithin the time period is included. Ethanol Lvl <10 <=10 mg/dL [facility] Specimen Blood Performing Organization Address [facility]/[place] [address] [phone] Acetaminophen level (11/08/2018 11:08 PM CDT)Only the most recent of3 resultswithin the time period is included. Acetaminophen Level 9.4 (L) 10.0 - 30.0 ug/mL [facility] Specimen Blood Performing Organization Address [facility] Number [facility] [address] [place] [address] Salicylate level (11/08/2018 11:08 PM CDT)Only the most recent of3 resultswithin the time period is included. Salicylate Lvl <5.0 (L) 20.0 - 30.0 mg/dL [facility] Specimen Blood Performing Organization Address [facility] Number [address] [address] [phone] Hepatic function panel (11/08/2018 11:08 PM CDT) Protein, Total 6.6 6.0 - 8.5 gm/dL [facility] Albumin 4.0 3.5 - 5.0 g/dL [facility] Total Bilirubin 0.3 0.1 - 1.3 mg/dL [facility] Bilirubin, Direct 0.1 0.0 - 0.5 mg/dL [facility] Alkaline Phosphatase 81 30 - 115 U/L [facility] AST 22 5 - 40 U/L [facility] ALT 15 6 - 50 U/L [facility] Specimen Blood Performing Organization Address [facility] Phone [facility] [address] [place] [address] Basic Metabolic Panel (11/08/2018 11:08 PM CDT)Only the most recent of2 resultswithin the time period is included. Sodium 137 135 - 148 meq/L [facility] Potassium 3.6 3.5 - 5.5 meq/L [facility] Chloride 104 98 - 106 meq/L [facility] CO2 23 20 - 31 meq/L [facility] BUN 30 (H) 10 - 26 mg/dL [facility] Creatinine 0.91 0.50 - 1.20 mg/dL [facility] Glucose 126 (H) 70 - 110 mg/dL [facility] Calcium 8.7 8.5 - 10.5 mg/dL [facility] EGFR 87Comment: ESTIMATED GFR IS NOT mL/min/1.73 sq m [facility] ACCURATE CREATININE CLEARANCE IN PREDICTING GLOMERULAR FILTRATION RATE. ESTIMATED GFR IS NOT APPLICABLE FOR DIALYSIS PATIENTS. Specimen Blood Performing Organization Address City/[facility] Phone Number [facility] [address] [place] [address] [phone] ECG 12 lead (11/08/2018 11:02 PM CDT)Only the most recent of3 resultswithin the time period is included. Specimen Narrative Performed At Ventricular Rate 83 BPM GE MUSE Atrial Rate 83 BPM P-R Interval 156 ms QRS Duration 106 ms Q-T Interval 388 ms QTC Calculation(Bazett) 455 ms P [place] 80 degrees R [place] 68 degrees T [place] 68 degrees Normal sinus rhythm Incomplete right bundle branch block Borderline ECG Procedure Note Interface, External Ris In - 11/10/2018 4:36 PM CDT Ventricular Rate 83 BPM Atrial Rate 83 BPM P-R Interval 156 ms QRS Duration 106 ms Q-T Interval 388 ms QTC Calculation(Bazett) 455 ms P [place] 80 degrees R [place] 68 degrees T [place] 68 degrees Normal sinus rhythm Incomplete right bundle branch block Borderline ECG Performing Organization Address [facility] Phone Number GE MUSE Urinalysis w/Microscopic + Reflex to Culture (09/12/2018 1:08 AM CDT) Color, UA Yellow [facility] Clarity, UA Clear [facility] Specific [place], UA 1.015 1.001 - 1.035 [facility] pH, UA 6.0 5.0 - 8.0 [facility] Protein, UA Negative Negative [facility] Glucose, UA Negative Negative [facility] Ketones, UA 20 mg/dL (A) Negative [facility] Bilirubin, UA Negative Negative [facility] Blood, UA Negative Negative [facility] Nitrite, UA Negative Negative [facility] Leukocytes, UA Small (A) Negative [facility] Urobilinogen, UA 2.0 (H) 0.2 - 1.0 mg/dL [facility] RBC, UA 4 /HPF [facility] WBC, UA 21 /HPF [facility] Bacteria, UA Few [facility] Mucus Moderate [facility] Squam Epithel, UA <1 /HPF [facility] Specimen Source [facility] Specimen Urine Performing Organization Address [facility] Phone Number [facility] [address] [place] [address] Urine culture (09/12/2018 1:08 AM CDT) Result 60-69,000 col/mL skin bhupendra [facility] Specimen Urine Performing Organization Address [facility] Phone Number [facility] [address] [place] [address] [phone] Lipase (09/11/2018 10:11 PM CDT) Lipase 17 8 - 78 U/L [facility] Specimen Blood Performing Organization Address [facility] Phone Number [facility] [address] [place] [address] Comprehensive metabolic panel (09/11/2018 10:11 PM CDT) Protein, Total 7.2Comment: Specimen 6.0 - 8.5 gm/dL [facility] markedly hemolyzed Albumin 4.1Comment: Specimen 3.5 - 5.0 g/dL [facility] markedly hemolyzed Alkaline Phosphatase 76 30 - 115 U/L [facility] Total Bilirubin 0.5Comment: Specimen 0.1 - 1.3 mg/dL [facility] markedly hemolyzed Sodium 139 135 - 148 meq/L [facility] Potassium 4.9Comment: Specimen 3.5 - 5.5 meq/L [facility] markedly hemolyzed Chloride 106 98 - 106 meq/L [facility] CO2 23 20 - 31 meq/L [facility] BUN 7 (L) 10 - 26 mg/dL [facility] Creatinine 0.83Comment: Specimen 0.50 - 1.20 mg/dL [facility] markedly hemolyzed Glucose 82 70 - 110 mg/dL [facility] Calcium 9.5 8.5 - 10.5 mg/dL [facility] AST 37Comment: Specimen 5 - 40 U/L [facility] markedly hemolyzed ALT 23Comment: Specimen 6 - 50 U/L [facility] markedly hemolyzed EGFR 97Comment: ESTIMATED GFR mL/min/1.73 sq m [facility] IS NOT ACCURATE CREATININE CLEARANCE IN PREDICTING GLOMERULAR FILTRATION RATE. ESTIMATED GFR IS NOT APPLICABLE FOR DIALYSIS PATIENTS. Specimen Blood Performing Organization Address City/State/Zipcode Phone Number [facility] [address] [place] [address] [phone] ECG/EKG Interpretation (09/11/2018 8:44 PM CDT)Only the [...] RBBB. ST segments normal. T waves normal. [place] is normal. Other findings: no other findings. Right sided lead use: right-sided leads not used. Left sided lead use: Posterior leads were not used. Clinical Impression: abnormal ECGECG reviewed and does not meet STEMI criteria. Patient tolerance: Patient tolerated the procedure well with no immediate complications after 11/16/2017 Insurance Payer Benefit Plan / Group Subscriber ID Type Phone Address [facility] NTK xxxxxxxxx
--- OUTSIDE RECORDS SUMMARY | 2018-11-17 13:10 | XMS REPORT ---
:1965 [facility] Address [address] [place] [address] Care Team Providers Name Role Phone ISIAH [...] Reference Range Comments BARBITURATE URINE (BEAKER) (test ldlj=220) Negative Negative BENZODIAZEPINE SCREEN URINE (BEAKER) (test awyy=441) Positive Negative COCAINE (METAB.) SCREEN (BEAKER) (test egyd=3782) Negative Negative METHADONE SCREEN (BEAKER) (test ugqg=4412) Negative Negative OPIATE SCREEN URINE (BEAKER) (test qqlu=038) Negative Negative CANNABINOID SCREEN URINE (BEAKER) (test tvwe=778) Negative Negative AMPH/METHAMPH SCREEN (BEAKER) (test zafq=2943) Positive Negative PHENCYCLIDINE SCREEN URINE (BEAKER) (test bnpy=006) Negative Negative DRUG CUTOFF CONC.Cocaine 300 ng/mL Cannabinoid 50 ng/mLBenzodiazepine 200 ng/mLBarbiturate 200 ng/ mLPhencyclidine 25 ng/mLOpiate 300 ng/mLMethadone 300 ng/mLAmphetamine/ 1000 ng/mL MethamphetamineThis assay provides an unconfirmed qualitative test result for the clinical management of patients in emergency situations. Chain of custody not maintained. Some edmy-dpb-hpjythi medications, as well as adulterants, may cause inaccurate results. Clinical correlation should be applied. A more comprehensivedrug screen or confirmation of a detected drug may be performed upon request.[id number] 23:53:00 Test Item Value Reference Range Comments ETHANOL (BEAKER) (test fisc=267) < mg/dL <=10 [id number] 23:41:00 Test Item Value Reference Range Comments PHOSPHORUS (BEAKER) (test jfge=249) 3.2 mg/dL 2.5-4.5 [id number] 23:41:00 Test Item Value Reference Range Comments MAGNESIUM (BEAKER) (test ptau=596) 2.1 mg/dL 1.5-3.0 BASIC METABOLIC [id number] 23:41:00 Test Item Value Reference Range Comments SODIUM (BEAKER) (test 137 meq/L 135-148 lqsg=880) POTASSIUM (BEAKER) (test 3.6 meq/L 3.5-5.5 qwlj=218) CHLORIDE (BEAKER) (test 104 meq/L 98-106 ghks=720) CO2 (BEAKER) (test 23 meq/L 20-31 snca=717) BLOOD UREA NITROGEN 30 mg/dL 10-26 (BEAKER) (test lzwk=841) CREATININE (BEAKER) (test 0.91 mg/dL 0.50-1.20 ackv=277) GLUCOSE RANDOM (BEAKER) 126 mg/dL 70-110 (test nmye=233) CALCIUM (BEAKER) (test 8.7 mg/dL 8.5-10.5 uign=249) EGFR (BEAKER) (test 87 mL/min/1.73 sq m ESTIMATED GFR IS NOT eazv=3062) ACCURATE CREATININE CLEARANCE IN PREDICTING GLOMERULAR FILTRATION RATE. ESTIMATED GFR IS NOT APPLICABLE FOR DIALYSIS PATIENTS. HEPATIC FUNCTION [id number] 23:41:00 Test Item Value Reference Range Comments TOTAL PROTEIN (BEAKER) (test uosv=508) 6.6 gm/dL 6.0-8.5 ALBUMIN (BEAKER) (test llsp=1230) 4.0 g/dL 3.5-5.0 BILIRUBIN TOTAL (BEAKER) (test rbuz=133) 0.3 mg/dL 0.1-1.3 BILIRUBIN DIRECT (BEAKER) (test vdiy=232) 0.1 mg/dL 0.0-0.5 ALKALINE PHOSPHATASE (BEAKER) (test fbpi=629) 81 U/L 30-115 AST (SGOT) (BEAKER) (test qbiw=820) 22 U/L 5-40 ALT (SGPT) (BEAKER) (test eqxe=610) 15 U/L 6-50 SALICYLATE [id number] 23:39:00 Test Item Value Reference Range Comments SALICYLATE LEVEL (BEAKER) (test rqyj=354) < mg/dL 20.0-30.0 ACETAMINOPHEN [id number] 23:38:00 Test Item Value Reference Range Comments ACETAMINOPHEN LEVEL (BEAKER) (test qvrt=841) 9.4 ug/mL 10.0-30.0 CBC W/PLT COUNT & AUTO [id number] 23:15:00 Test Item Value Reference Range Comments WHITE BLOOD CELL COUNT (BEAKER) 9.0 K/ L 4.0-10.0 (test qsbv=792) RED BLOOD CELL COUNT (BEAKER) 3.91 M/ L 4.20-5.80 (test osgq=306) HEMOGLOBIN (BEAKER) (test 12.0 GM/DL 13.0-16.8 xdni=335) HEMATOCRIT (BEAKER) (test 36.3 % 36.0-50.0 bmjv=740) MEAN CORPUSCULAR VOLUME 92.8 fL 82.0-99.0 (BEAKER) (test iszb=339) MEAN CORPUSCULAR HEMOGLOBIN 30.7 pg 27.0-33.0 (BEAKER) (test hunl=650) MEAN CORPUSCULAR HEMOGLOBIN 33.1 GM/DL 32.0-36.0 CONC (BEAKER) (test nwvx=862) RED CELL DISTRIBUTION WIDTH 12.9 % 12.0-15.0 (BEAKER) (test kwbl=134) PLATELET COUNT (BEAKER) (test 315 K/CU MM 150-430 xjgg=450) MEAN PLATELET VOLUME (BEAKER) 9.0 fL 6.0-11.5 MPV-Approximately 20% (test fksn=624) positive bias due to method change. NUCLEATED RED BLOOD CELLS 0 /100 WBC 0-0 (BEAKER) (test mdmk=496) NEUTROPHILS RELATIVE PERCENT 64 % (BEAKER) (test xrwj=787) LYMPHOCYTES RELATIVE PERCENT 23 % (BEAKER) (test zbjn=950) MONOCYTES RELATIVE PERCENT 9 % (BEAKER) (test nbeh=689) EOSINOPHILS RELATIVE PERCENT 3 % (BEAKER) (test xhct=586) BASOPHILS RELATIVE PERCENT 1 % (BEAKER) (test oncr=470) NEUTROPHILS ABSOLUTE COUNT 5.81 K/ L 1.80-8.00 (BEAKER) (test dfen=067) LYMPHOCYTES ABSOLUTE COUNT 2.03 K/ L 1.48-4.50 (BEAKER) (test mila=847) MONOCYTES ABSOLUTE COUNT 0.81 K/ L 0.00-1.30 (BEAKER) (test pkhp=287) EOSINOPHILS ABSOLUTE COUNT 0.25 K/ L 0.00-0.50 (BEAKER) (test dcdk=702) BASOPHILS ABSOLUTE COUNT 0.10 K/ L 0.00-0.20 (BEAKER) (test knlx=555) IMMATURE GRANULOCYTES-RELATIVE 0 % 0-0 PERCENT (BEAKER) (test rvbl=5045) URINALYSIS [id number] 00:50:00 Test Item Value Reference Range Comments [...] RESULTS VERIFIED WITH AUTO-DILUTION PROCEDURES. COMPREHENSIVE METABOLIC [id number] 17:20:00 Test Item Value Reference Range Comments [...] NORMAL <50 MG 1 NORMAL code=LIPINDEX) Index/DL [id number] 17:20:00 Test Item Value Reference Range Comments MAGNESIUM (test code=MAG) 2.7 MG/DL 1.6-2.6 COMPREHENSIVE METABOLIC [id number] 17:17:00 Test Item Value Reference Range Comments [...] NORMAL <50 MG 1 NORMAL code=LIPINDEX) Index/DL [id number] 17:17:00 Test Item Value Reference Range Comments MAGNESIUM (test code=MAG) 2.7 MG/DL 1.6-2.6 CBC W/AUTO [id number] 17:03:00 Test Item Value Reference Range Comments [...] code=NRBC#) 0.00 K/mm3 0.00-0.05 RAPID DRUG SCREEN, [id number] 01:40:00 Test Item Value Reference Range Comments BARBITURATE URINE (BEAKER) (test picl=547) Negative Negative BENZODIAZEPINE SCREEN URINE (BEAKER) (test Negative Negative gqut=320) COCAINE (METAB.) SCREEN (BEAKER) (test tnwm=9603) Negative Negative METHADONE SCREEN (BEAKER) (test dttm=4172) Negative Negative OPIATE SCREEN URINE (BEAKER) (test bjtj=979) Negative Negative CANNABINOID SCREEN URINE (BEAKER) (test heom=413) Negative Negative AMPH/METHAMPH SCREEN (BEAKER) (test yoqh=0578) Negative Negative PHENCYCLIDINE SCREEN URINE (BEAKER) (test zuds=988) Negative Negative DRUG CUTOFF CONC.Cocaine 300 ng/mL Cannabinoid 50 ng/mLBenzodiazepine 200 ng/mLBarbiturate 200 ng/ mLPhencyclidine 25 ng/mLOpiate 300 ng/mLMethadone 300 ng/mLAmphetamine/ 1000 ng/mL MethamphetamineThis assay provides an unconfirmed qualitative test result for the clinical management of patients in emergency situations. Chain of custody not maintained. Some asdg-yuk-nglrjtb medications, as well as adulterants, may cause inaccurate results. Clinical correlation should be applied. A more comprehensivedrug screen or confirmation of a detected drug may be performed upon request.URINALYSIS W/ REFLEX URINE [id number] 01:23:00 Test Item Value Reference Range Comments COLOR (BEAKER) (test zfdv=722) Yellow CLARITY (BEAKER) (test huku=803) Clear SPECIFIC GRAVITY UA (BEAKER) (test pfdc=753) 1.015 1.001-1.035 PH UA (BEAKER) (test ubjl=477) 6.0 5.0-8.0 PROTEIN UA (BEAKER) (test ssyx=923) Negative Negative GLUCOSE UA (BEAKER) (test usmg=623) Negative Negative KETONES UA (BEAKER) (test thcb=679) 20 mg/dL Negative BILIRUBIN UA (BEAKER) (test ixaw=862) Negative Negative BLOOD UA (BEAKER) (test tavv=865) Negative Negative NITRITE UA (BEAKER) (test oeel=818) Negative Negative LEUKOCYTE ESTERASE UA (BEAKER) (test xzuq=258) Small Negative UROBILINOGEN UA (BEAKER) (test uecj=661) 2.0 mg/dL 0.2-1.0 RBC UA (BEAKER) (test mpvh=171) 4 /HPF WBC UA (BEAKER) (test kpgn=962) 21 /HPF BACTERIA (BEAKER) (test cscj=363) Few MUCUS (BEAKER) (test lehp=1632) Moderate SQUAMOUS EPITHELIAL (BEAKER) (test ctts=161) < /HPF SOURCE(BEAKER) (test knvn=1570) [id number] 23:00:00 Test Item Value Reference Range Comments LIPASE (BEAKER) (test ggzw=699) 17 U/L 8-78 COMPREHENSIVE METABOLIC [id number] 23:00:00 Test Item Value Reference Range Comments TOTAL PROTEIN (BEAKER) 7.2 gm/dL 6.0-8.5 Specimen markedly (test spni=423) hemolyzed ALBUMIN (BEAKER) (test 4.1 g/dL 3.5-5.0 Specimen markedly lpeh=2590) hemolyzed ALKALINE PHOSPHATASE 76 U/L 30-115 (BEAKER) (test ddte=324) BILIRUBIN TOTAL (BEAKER) 0.5 mg/dL 0.1-1.3 Specimen markedly (test nahz=156) hemolyzed SODIUM (BEAKER) (test 139 meq/L 135-148 htnn=401) POTASSIUM (BEAKER) (test 4.9 meq/L 3.5-5.5 Specimen markedly hclj=340) hemolyzed CHLORIDE (BEAKER) (test 106 meq/L 98-106 pivl=611) CO2 (BEAKER) (test 23 meq/L 20-31 rgbm=896) BLOOD UREA NITROGEN 7 mg/dL 10-26 (BEAKER) (test qgyi=847) CREATININE (BEAKER) (test 0.83 mg/dL 0.50-1.20 Specimen markedly pfhd=027) hemolyzed GLUCOSE RANDOM (BEAKER) 82 mg/dL 70-110 (test bboz=164) CALCIUM (BEAKER) (test 9.5 mg/dL 8.5-10.5 ngvv=911) AST (SGOT) (BEAKER) (test 37 U/L 5-40 Specimen markedly wfru=707) hemolyzed ALT (SGPT) (BEAKER) (test 23 U/L 6-50 Specimen markedly oxyi=525) hemolyzed EGFR (BEAKER) (test 97 mL/min/1.73 sq m ESTIMATED GFR IS NOT mxdk=0615) ACCURATE CREATININE CLEARANCE IN PREDICTING GLOMERULAR FILTRATION RATE. ESTIMATED GFR IS NOT APPLICABLE FOR DIALYSIS PATIENTS. ACETAMINOPHEN [id number] 22:57:00 Test Item Value Reference Range Comments ACETAMINOPHEN LEVEL (BEAKER) < ug/mL 10.0-30.0 Specimen markedly hemolyzed (test zmrp=457) SALICYLATE [id number] 22:52:00 Test Item Value Reference Range Comments SALICYLATE LEVEL (BEAKER) (test rjmp=880) < mg/dL 20.0-30.0 [id number] 22:47:00 Test Item Value Reference Range Comments ETHANOL (BEAKER) (test sxyy=681) < mg/dL <=10 CBC W/PLT COUNT & AUTO [id number] 22:24:00 Test Item Value Reference Range Comments WHITE BLOOD CELL COUNT (BEAKER) 5.5 K/ L 4.0-10.0 (test wfuc=046) RED BLOOD CELL COUNT (BEAKER) 4.12 M/ L 4.20-5.80 (test koue=225) HEMOGLOBIN (BEAKER) (test 13.0 GM/DL 13.0-16.8 iayb=775) HEMATOCRIT (BEAKER) (test 39.0 % 36.0-50.0 lyqi=920) MEAN CORPUSCULAR VOLUME 94.7 fL 82.0-99.0 (BEAKER) (test zyeh=433) MEAN CORPUSCULAR HEMOGLOBIN 31.6 pg 27.0-33.0 (BEAKER) (test jgdg=045) MEAN CORPUSCULAR HEMOGLOBIN 33.3 GM/DL 32.0-36.0 CONC (BEAKER) (test ojym=689) RED CELL DISTRIBUTION WIDTH 13.6 % 12.0-15.0 (BEAKER) (test ugvn=078) PLATELET COUNT (BEAKER) (test 321 K/CU MM 150-430 dgwz=390) MEAN PLATELET VOLUME (BEAKER) 8.9 fL 6.0-11.5 MPV-Approximately 20% (test kmin=366) positive bias due to method change. NUCLEATED RED BLOOD CELLS 0 /100 WBC 0-0 (BEAKER) (test ghqc=073) NEUTROPHILS RELATIVE PERCENT 59 % (BEAKER) (test yzza=403) LYMPHOCYTES RELATIVE PERCENT 31 % (BEAKER) (test cvbi=361) MONOCYTES RELATIVE PERCENT 7 % (BEAKER) (test hjnv=000) EOSINOPHILS RELATIVE PERCENT 2 % (BEAKER) (test heiu=326) BASOPHILS RELATIVE PERCENT 1 % (BEAKER) (test pzay=761) NEUTROPHILS ABSOLUTE COUNT 3.21 K/ L 1.80-8.00 (BEAKER) (test lhan=946) LYMPHOCYTES ABSOLUTE COUNT 1.68 K/ L 1.48-4.50 (BEAKER) (test euwr=825) MONOCYTES ABSOLUTE COUNT 0.38 K/ L 0.00-1.30 (BEAKER) (test djsz=417) EOSINOPHILS ABSOLUTE COUNT 0.12 K/ L 0.00-0.50 (BEAKER) (test tpzm=723) BASOPHILS ABSOLUTE COUNT 0.05 K/ L 0.00-0.20 (BEAKER) (test gsia=650) IMMATURE GRANULOCYTES-RELATIVE 0 % 0-0 PERCENT (BEAKER) (test elpg=8341) RAPID DRUG SCREEN, [id number] 23:37:00 Test Item Value Reference Range Comments BARBITURATE URINE (BEAKER) (test fgbb=104) Negative Negative BENZODIAZEPINE SCREEN URINE (BEAKER) (test Negative Negative jnrs=583) COCAINE (METAB.) SCREEN (BEAKER) (test vgnj=6258) Negative Negative METHADONE SCREEN (BEAKER) (test kuyg=9509) Negative Negative OPIATE SCREEN URINE (BEAKER) (test arhq=464) Negative Negative CANNABINOID SCREEN URINE (BEAKER) (test czaw=889) Negative Negative AMPH/METHAMPH SCREEN (BEAKER) (test iwqw=8691) Positive Negative PHENCYCLIDINE SCREEN URINE (BEAKER) (test oqse=006) Negative Negative DRUG CUTOFF CONC.Cocaine 300 ng/mL Cannabinoid 50 ng/mLBenzodiazepine 200 ng/mLBarbiturate 200 ng/ mLPhencyclidine 25 ng/mLOpiate 300 ng/mLMethadone 300 ng/mLAmphetamine/ 1000 ng/mL MethamphetamineThis assay provides an unconfirmed qualitative test result for the clinical management of patients in emergency situations. Chain of custody not maintained. Some fawh-wbs-mgriikh medications, as well as adulterants, may cause inaccurate results. Clinical correlation should be applied. A more comprehensivedrug screen or confirmation of a detected drug may be performed upon request.BASIC METABOLIC [id number] 23:37:00 Test Item Value Reference Range Comments SODIUM (BEAKER) (test 141 meq/L 135-148 gsct=818) POTASSIUM (BEAKER) (test 3.2 meq/L 3.5-5.5 nvhe=102) CHLORIDE (BEAKER) (test 107 meq/L 98-106 pjfr=965) CO2 (BEAKER) (test 26 meq/L 20-31 spqi=953) BLOOD UREA NITROGEN 18 mg/dL 10-26 (BEAKER) (test tzii=068) CREATININE (BEAKER) (test 0.79 mg/dL 0.50-1.20 gatd=633) GLUCOSE RANDOM (BEAKER) 94 mg/dL 70-110 (test gnrk=618) CALCIUM (BEAKER) (test 9.1 mg/dL 8.5-10.5 qncn=648) EGFR (BEAKER) (test 102 mL/min/1.73 sq m ESTIMATED GFR IS NOT sktq=6767) ACCURATE CREATININE CLEARANCE IN PREDICTING GLOMERULAR FILTRATION RATE. ESTIMATED GFR IS NOT APPLICABLE FOR DIALYSIS PATIENTS. SALICYLATE [id number] 23:28:00 Test Item Value Reference Range Comments SALICYLATE LEVEL (BEAKER) (test oota=811) < mg/dL 20.0-30.0 ACETAMINOPHEN [id number] 23:25:00 Test Item Value Reference Range Comments ACETAMINOPHEN LEVEL (BEAKER) (test dmce=745) 8.6 ug/mL 10.0-30.0 [id number] 23:23:00 Test Item Value Reference Range Comments ETHANOL (BEAKER) (test dwfb=241) < mg/dL <=10 CBC W/PLT COUNT & AUTO [id number] 23:03:00 Test Item Value Reference Range Comments WHITE BLOOD CELL COUNT (BEAKER) 5.5 K/ L 4.0-10.0 (test afka=337) RED BLOOD CELL COUNT (BEAKER) 3.90 M/ L 4.20-5.80 (test kmei=189) HEMOGLOBIN (BEAKER) (test 12.3 GM/DL 13.0-16.8 qmle=452) HEMATOCRIT (BEAKER) (test 37.0 % 36.0-50.0 bktv=173) MEAN CORPUSCULAR VOLUME 94.9 fL 82.0-99.0 (BEAKER) (test kbad=354) MEAN CORPUSCULAR HEMOGLOBIN 31.5 pg 27.0-33.0 (BEAKER) (test hjxv=168) MEAN CORPUSCULAR HEMOGLOBIN 33.2 GM/DL 32.0-36.0 CONC (BEAKER) (test rahg=148) RED CELL DISTRIBUTION WIDTH 13.3 % 12.0-15.0 (BEAKER) (test vnnt=504) PLATELET COUNT (BEAKER) (test 294 K/CU MM 150-430 gwqt=201) MEAN PLATELET VOLUME (BEAKER) 8.6 fL 6.0-11.5 MPV-Approximately 20% (test ucvf=827) positive bias due to method change. NUCLEATED RED BLOOD CELLS 0 /100 WBC 0-0 (BEAKER) (test ezin=045) NEUTROPHILS RELATIVE PERCENT 50 % (BEAKER) (test yebc=066) LYMPHOCYTES RELATIVE PERCENT 37 % (BEAKER) (test miks=201) MONOCYTES RELATIVE PERCENT 7 % (BEAKER) (test nfii=028) EOSINOPHILS RELATIVE PERCENT 5 % (BEAKER) (test hnzh=551) BASOPHILS RELATIVE PERCENT 1 % (BEAKER) (test rolx=095) NEUTROPHILS ABSOLUTE COUNT 2.73 K/ L 1.80-8.00 (BEAKER) (test efen=171) LYMPHOCYTES ABSOLUTE COUNT 2.05 K/ L 1.48-4.50 (BEAKER) (test pzcl=655) MONOCYTES ABSOLUTE COUNT 0.39 K/ L 0.00-1.30 (BEAKER) (test cfdo=435) EOSINOPHILS ABSOLUTE COUNT 0.26 K/ L 0.00-0.50 (BEAKER) (test uokv=312) BASOPHILS ABSOLUTE COUNT 0.07 K/ L 0.00-0.20 (BEAKER) (test gnno=328) IMMATURE GRANULOCYTES-RELATIVE 0 % 0-0 PERCENT (BEAKER) (test zvud=7841) COMPREHENSIVE METABOLIC [id number] 05:21:00 Test Item Value Reference Range Comments [...] MG 1 NORMAL code=LIPINDEX) Index/DL CBC W/AUTO [id number] 04:58:00 Test Item Value Reference Range Comments [...] code=NRBC#) 0.00 K/mm3 0.00-0.05 RAPID DRUG SCREEN, [id number] 10:16:00 Test Item Value Reference Range Comments BARBITURATE URINE (BEAKER) (test dphi=886) Negative Negative BENZODIAZEPINE SCREEN URINE (BEAKER) (test Negative Negative fquc=176) COCAINE (METAB.) SCREEN (BEAKER) (test bqet=7486) Negative Negative METHADONE SCREEN (BEAKER) (test tvnm=2254) Negative Negative OPIATE SCREEN URINE (BEAKER) (test cnqp=165) Negative Negative CANNABINOID SCREEN URINE (BEAKER) (test omtx=321) Negative Negative AMPH/METHAMPH SCREEN (BEAKER) (test rmqv=2642) Negative Negative PHENCYCLIDINE SCREEN URINE (BEAKER) (test hjhd=687) Negative Negative OXYCODONE SCREEN URINE (BEAKER) (test qxok=0254) Negative Negative DRUG CUTOFF CONC.Cocaine 300 ng/mL Cannabinoid 50 ng/mL Benzodiazepine 200 ng/mLBarbiturate 200 ng/ mLPhencyclidine 25 ng/mLOpiate 300 ng/mLMethadone 300 ng/mLAmphetamine/ 1000 ng/mL MethamphetamineOxycodone 300 ng/mLThis assay provides an unconfirmed qualitative test result for the clinical management of patients in emergency situations. Chain of custody not maintained. Some omjd-mtb-iynunyy medications, as well as adulterants, may cause inaccurate results. Clinical correlation should be applied. A more comprehensive drug screen or confirmation of a detected drug may be performed upon request.URINALYSIS W/ [id number] 08:52:00 Test Item Value Reference Range Comments COLOR (BEAKER) (test nxdj=511) Yellow CLARITY (BEAKER) (test gufh=814) Clear SPECIFIC GRAVITY UA (BEAKER) (test vldf=799) 1.013 1.001-1.035 PH UA (BEAKER) (test yykt=089) 6.0 5.0-8.0 PROTEIN UA (BEAKER) (test cvml=397) Negative Negative GLUCOSE UA (BEAKER) (test hrim=543) Negative Negative KETONES UA (BEAKER) (test ztut=321) Negative Negative BILIRUBIN UA (BEAKER) (test ywfy=076) Negative Negative BLOOD UA (BEAKER) (test mosb=209) Negative Negative NITRITE UA (BEAKER) (test nvnh=931) Negative Negative LEUKOCYTE ESTERASE UA (BEAKER) (test rden=215) Negative Negative UROBILINOGEN UA (BEAKER) (test xsmb=579) 0.2 mg/dL 0.2-1.0 RBC UA (BEAKER) (test sqmi=833) 1 /HPF WBC UA (BEAKER) (test yiwy=639) < /HPF MUCUS (BEAKER) (test jysg=4660) Rare SOURCE(BEAKER) (test uinm=3969) Urine, Voided TSH/FREE T4 IF [id number] 01:43:00 Test Item Value Reference Range Comments THYROID STIMULATING HORMONE (BEAKER) (test 1.16 uIU/mL 0.35-4.94 adff=122) HEPATIC FUNCTION [id number] 01:07:00 Test Item Value Reference Range Comments TOTAL PROTEIN (BEAKER) (test akux=274) 6.4 gm/dL 6.0-8.3 ALBUMIN (BEAKER) (test hosb=4198) 4.0 g/dL 3.5-5.0 BILIRUBIN TOTAL (BEAKER) (test xmyt=159) 0.5 mg/dL 0.2-1.2 BILIRUBIN DIRECT (BEAKER) (test edwm=694) 0.2 mg/dL 0.1-0.5 ALKALINE PHOSPHATASE (BEAKER) (test nxxd=489) 74 U/L 40-150 AST (SGOT) (BEAKER) (test hnrp=396) 38 U/L 5-34 ALT (SGPT) (BEAKER) (test qpdw=963) 47 U/L 6-55 COMPREHENSIVE METABOLIC [id number] 01:07:00 Test Item Value Reference Range Comments TOTAL PROTEIN (BEAKER) 6.4 gm/dL 6.0-8.3 (test snjl=026) ALBUMIN (BEAKER) (test 4.0 g/dL 3.5-5.0 nrdk=6362) ALKALINE PHOSPHATASE 74 U/L 40-150 (BEAKER) (test dukj=195) BILIRUBIN TOTAL (BEAKER) 0.5 mg/dL 0.2-1.2 (test itrk=996) SODIUM (BEAKER) (test 140 meq/L 136-145 xeua=332) POTASSIUM (BEAKER) (test 3.8 meq/L 3.5-5.1 glev=250) CHLORIDE (BEAKER) (test 109 meq/L 98-107 lyas=680) CO2 (BEAKER) (test 23 meq/L 22-29 azjg=824) BLOOD UREA NITROGEN 22 mg/dL 7-21 (BEAKER) (test dwyk=082) CREATININE (BEAKER) (test 0.74 mg/dL 0.57-1.25 ourh=718) GLUCOSE RANDOM (BEAKER) 100 mg/dL 70-105 (test ubdp=981) CALCIUM (BEAKER) (test 9.0 mg/dL 8.4-10.2 ifoq=904) AST (SGOT) (BEAKER) (test 38 U/L 5-34 hmhe=470) ALT (SGPT) (BEAKER) (test 47 U/L 6-55 tafs=170) EGFR (BEAKER) (test 111 mL/min/1.73 sq ESTIMATED GFR IS NOT task=8874) m ACCURATE CREATININE CLEARANCE IN PREDICTING GLOMERULAR FILTRATION RATE. ESTIMATED GFR IS NOT APPLICABLE FOR DIALYSIS PATIENTS. [id number] 01:03:00 Test Item Value Reference Range Comments ETHANOL (BEAKER) (test pucj=515) < mg/dL <=10 LACTIC ACID, VENOUS, WHOLE [id number] 01:01:00 Test Item Value Reference Range Comments LACTATE BLOOD VENOUS (2) (BEAKER) (test 0.5 mmol/L 0.5-2.2 bmsb=4844) Effective 09/22/2015: Units/Reference Range ChangeNew: 0.5-2.2 mmol/L Previous: 5 -20 mg/dLCBC W/PLT COUNT & AUTO [id number] 00:51:00 Test Item Value Reference Range Comments WHITE BLOOD CELL COUNT (BEAKER) (test uiio=557) 8.1 K/ L 3.5-10.5 RED BLOOD CELL COUNT (BEAKER) (test xswv=841) 3.77 M/ L 4.63-6.08 HEMOGLOBIN (BEAKER) (test brih=824) 11.6 GM/DL 13.7-17.5 HEMATOCRIT (BEAKER) (test pheq=536) 35.8 % 40.1-51.0 MEAN CORPUSCULAR VOLUME (BEAKER) (test rhdb=156) 95.0 fL 79.0-92.2 MEAN CORPUSCULAR HEMOGLOBIN (BEAKER) (test 30.8 pg 25.7-32.2 mjqa=026) MEAN CORPUSCULAR HEMOGLOBIN CONC (BEAKER) (test 32.4 GM/DL 32.3-36.5 kvvh=590) RED CELL DISTRIBUTION WIDTH (BEAKER) (test 13.8 % 11.6-14.4 pxwz=067) PLATELET COUNT (BEAKER) (test cyqf=478) 261 K/CU MM 150-450 MEAN PLATELET VOLUME (BEAKER) (test xgym=343) 9.0 fL 9.4-12.4 NUCLEATED RED BLOOD CELLS (BEAKER) (test 0 /100 WBC 0-0 zymz=111) NEUTROPHILS RELATIVE PERCENT (BEAKER) (test 68 % virp=841) LYMPHOCYTES RELATIVE PERCENT (BEAKER) (test 23 % phye=744) MONOCYTES RELATIVE PERCENT (BEAKER) (test 6 % szij=672) EOSINOPHILS RELATIVE PERCENT (BEAKER) (test 2 % atva=618) BASOPHILS RELATIVE PERCENT (BEAKER) (test 1 % mwxt=007) NEUTROPHILS ABSOLUTE COUNT (BEAKER) (test 5.48 K/ L 1.78-5.38 ybjl=081) LYMPHOCYTES ABSOLUTE COUNT (BEAKER) (test 1.82 K/ L 1.32-3.57 kcqz=849) MONOCYTES ABSOLUTE COUNT (BEAKER) (test 0.49 K/ L 0.30-0.82 uuvn=640) EOSINOPHILS ABSOLUTE COUNT (BEAKER) (test 0.17 K/ L 0.04-0.54 ruhr=953) BASOPHILS ABSOLUTE COUNT (BEAKER) (test 0.09 K/ L 0.01-0.08 ubcn=688) IMMATURE GRANULOCYTES-RELATIVE PERCENT (BEAKER) 0 % 0-1 (test srgx=6200) POCT-GLUCOSE [id number] 00:47:00 Test Item Value Reference Range Comments POC-GLUCOSE METER (BEAKER) 111 mg/dL 70-[address] [facility] [address] (test oamt=1780) [facility] [id number]
[2018-11-17] MEDS ORDERED: IBUPROFEN 400 MG TAB ONE (13:39)
--- NOTE | 2018-11-17 13:39 | EDPHYS ---
Physician Documentation [facility] Name: John Richards Age: 53 yrs Sex: Male : 1965 Arrival Date: 11/17/2018 Time: 13:11 Bed 23 Private MD: ED Physician Carlton Whitaker HPI: 11/17 13:33 This 53 yrs old Male presents to ER via EMS with complaints of needs rn ibuprofen. 13:33 The patient presents to the emergency department with hearing voices. Onset: The rn symptoms/episode began/occurred at an unknown time. Severity of symptoms: At their worst the symptoms were mild in the emergency department the symptoms have improved. The patient has experienced similar episodes in the past. Reports needed to get to police station here in [place] because once in [place] doesn't allow him to use phone or internet, reports told them he was hearing voices, but states he is not hearing voices or suicidal he just said that to get here. He reports wants to use facilities at [place] [facility], then plans on going to [employer] to use internet to get confirmation number for his [employer] [employer] money, then plans on checking into [place]. Denies suicide attempt or thoughts. Not homicidal. Not hearing voices. Would like 800mg ibuprofen because is achy and wants to leave. . Historical: - Allergies: 13:20 No Known Allergies; mg2 - Home Meds: 13:20 Seroquel Oral [Active]; Trazodone Oral [Active]; mood stabilizer meds [Active]; seizure mg2 meds [Active]; - PMHx: 13:20 Bipolar disorder; Chronic pain; Depression; Hernia; PTSD; Schizophrenia; mg2 - Immunization history:: Flu vaccine status is unknown. - Social history:: Smoking status: Patient uses tobacco products, smokes one pack cigarettes per day. - Ebola Screening: : No symptoms or risks identified at this time. - Family history:: not pertinent. - Hospitalizations: : No recent hospitalization is reported. ROS: 13:33 Constitutional: Negative for fever, chills, and weight loss, Eyes: Negative for injury, rn pain, redness, and discharge, Neck: Negative for injury, pain, and swelling, Cardiovascular: Negative for chest pain, palpitations, and edema, Respiratory: Negative for shortness of breath, cough, wheezing, and pleuritic chest pain, Abdomen/GI: Negative for abdominal pain, nausea, vomiting, diarrhea, and constipation, MS/Extremity: Negative for injury and deformity, Skin: Negative for injury, rash, and discoloration, Neuro: Negative for headache, weakness, numbness, tingling, and seizure. Exam: 13:33 Constitutional: Thin male, no acute distress Head/Face: Normocephalic, atraumatic. rn Eyes: Pupils equal round and reactive to light, extra-ocular motions intact. Lids and lashes normal. Conjunctiva and sclera are non-icteric and not injected. Cornea within normal limits. Periorbital areas with no swelling, redness, or edema. ENT: MMM Cardiovascular: Regular rate and rhythm. No pulse deficits. Respiratory: Lungs have equal breath sounds bilaterally, clear to auscultation. No increased work of breathing, no retractions or nasal flaring. Abdomen/GI: soft, non-tender MS/ Extremity: Pulses equal, no cyanosis. Neurovascular intact. Full, normal range of motion. Equal circumference. Neuro: Awake and alert, GCS 15, oriented to person, place, time, and situation. Cranial nerves II-XII grossly intact. Motor strength 5/5 in all extremities. Sensory grossly intact. Cerebellar exam normal. Normal gait. Vital Signs: 13:16 BP 123 / 89; Pulse 73; Resp 18; Temp 98.5; Pulse Ox 100% on R/A; Weight 54.43 kg; mg2 Height 5 ft. 7 in. (170.18 cm); Pain 6/10; 13:16 Body Mass Index 18.79 (54.43 kg, 170.18 cm) mg2 MDM: 13:11 Patient medically screened. rn 13:33 Differential diagnosis: manipulative behavior, chronic pain, schizophrenia. Data rn reviewed: vital signs, nurses notes, and as a result, I will discharge patient. Counseling: I had a detailed discussion with the patient and/or guardian regarding: the historical points, exam findings, and any diagnostic results supporting the discharge/admit diagnosis, the need for outpatient follow up, to return to the emergency department if symptoms worsen or persist or if there are any questions or concerns that arise at home. Special discussion: I discussed with the patient/guardian in detail that at this point there is no indication for admission to the hospital. It is understood, however, that if the symptoms persist or worsen the patient needs to return immediately for re-evaluation. Based on the history and exam findings, there is no indication for further emergent testing or inpatient evaluation. I discussed with the patient/guardian the need to see the primary care provider for further evaluation of the symptoms. I discussed with the patient/guardian the need to see the psychiatrist for further evaluation of the symptoms. 11/17 13:33 Order name: Urine Dipstick--Ancillary (enter results) eb Administered Medications: 13:30 Drug: Motrin 800 mg Route: PO; mg2 13:47 Follow up: Response: No adverse reaction; Medication administered at discharge. mg2 Disposition: 11/17/18 13:38 Discharged to Home. Impression: Chronic pain, not elsewhere classified, Schizophrenia, unspecified. - Condition is Stable. - Discharge Instructions: Schizophrenia. - Medication Reconciliation Form, Thank You Letter, Antibiotic Education, Prescription Opioid Use form. - Follow up: Private Physician; When: As needed; Reason: Recheck today's complaints, Re-evaluation by your physician. - Problem is new. - Symptoms have improved. Signatures: Dispatcher [employer] EDCarlton Francis MD MD rn Gardose, Michele, RN RN mg2 Corrections: (The following items were deleted from the chart) 13:48 13:38 11/17/2018 13:38 Discharged to Home. Impression: Chronic pain, not elsewhere mg2 classified; Schizophrenia, unspecified. Condition is Stable. Forms are Medication Reconciliation Form, Thank You Letter, Antibiotic Education, Prescription Opioid Use. Follow up: Private Physician; When: As needed; Reason: Recheck today's complaints, Re-evaluation by your physician. Problem is new. Symptoms have improved. rn
--- NOTE | 2018-11-17 13:39 | ER ---
Nurse's Notes [facility] Name: John Richards Age: 53 yrs Sex: Male : 1965 Arrival Date: 11/17/2018 Time: 13:11 Bed 23 Private MD: Diagnosis: Chronic pain, not elsewhere classified;Schizophrenia, unspecified Presentation: 11/17 13:11 Presenting complaint: EMS states: patient passed out 2 times today prior to arrival mg2 probably because of dehydration. he just got out of intermediate today \T\ 11 am and walk himself to the fire station to ask for help because he was hearing voices, that he wants to hang himself because of being in the intermediate, vomitted once, with inguinal hernia pain too. Now, he doesn't have any suicidal ideation. Transition of care: patient was not received from another setting of care. Onset of symptoms was November 17, 2018 at 11:00. Risk Assessment: Do you want to hurt yourself or someone else? Patient reports no desire to harm self or others. Initial Sepsis Screen: Does the patient meet any 2 criteria? No. Patient's initial sepsis screen is negative. Does the patient have a suspected source of infection? No. Patient's initial sepsis screen is negative. Care prior to arrival: None. 13:11 Method Of Arrival: EMS: [facility] 13:11 Acuity: VICTOR HUGO 3 mg2 Triage Assessment: 13:22 General: Appears in no apparent distress. comfortable, Behavior is calm, cooperative. mg2 Pain: Complains of pain in right inguinal pain. EENT: No signs and/or symptoms were reported regarding the EENT system. Neuro: Level of Consciousness is awake, alert, obeys commands, Oriented to person, place, time, situation, Reports thought of hanging himself before but not now. Cardiovascular: Capillary refill < 3 seconds Patient's skin is warm and dry. Respiratory: Airway is patent Respiratory effort is even, unlabored, Respiratory pattern is regular, symmetrical. GI: Reports vomiting. : No signs and/or symptoms were reported regarding the genitourinary system. Derm: Skin is intact, is healthy with good turgor, Skin is pink, warm \T\ dry. normal. Musculoskeletal: Circulation, motion, and sensation intact. Capillary refill < 3 seconds. Historical: - Allergies: 13:20 No Known Allergies; mg2 - Home Meds: 13:20 Seroquel Oral [Active]; Trazodone Oral [Active]; mood stabilizer meds [Active]; seizure mg2 meds [Active]; - PMHx: 13:20 Bipolar disorder; Chronic pain; Depression; Hernia; PTSD; Schizophrenia; mg2 - Immunization history:: Flu vaccine status is unknown. - Social history:: Smoking status: Patient uses tobacco products, smokes one pack cigarettes per day. - Ebola Screening: : No symptoms or risks identified at this time. - Family history:: not pertinent. - Hospitalizations: : No recent hospitalization is reported. Screenin:21 Abuse screen: Denies threats or abuse. Denies injuries from another. Nutritional mg2 screening: No deficits noted. Tuberculosis screening: No symptoms or risk factors identified. Fall Risk None identified. Assessment: 13:33 Reassessment: pls see triage assessment. mg2 13:47 Reassessment: patient wants to go after taking the medicine. discharge ambulatory, mg2 coherent, and in good state of mind. Vital Signs: 13:16 BP 123 / 89; Pulse 73; Resp 18; Temp 98.5; Pulse Ox 100% on R/A; Weight 54.43 kg; mg2 Height 5 ft. 7 in. (170.18 cm); Pain 6/10; 13:16 Body Mass Index 18.79 (54.43 kg, 170.18 cm) mg2 ED Course: 13:11 Patient arrived in ED. ss 13:11 Carlton Whitaker MD is Attending Physician. rn 13:11 Gurjit Zazueta RN is Primary Nurse. mg2 13:16 Triage completed. mg2 13:21 Arm band placed on. mg2 13:21 Patient has correct armband on for positive identification. Pulse ox on. NIBP on. Door mg2 closed. 13:23 No provider procedures requiring assistance completed. mg2 13:48 Patient did not have IV access during this emergency room visit. mg2 Administered Medications: 13:30 Drug: Motrin 800 mg Route: PO; mg2 13:47 Follow up: Response: No adverse reaction; Medication administered at discharge. mg2 Outcome: 13:38 Discharge ordered by . rn 13:48 Discharged to home ambulatory. mg2 13:48 Condition: stable 13:48 Discharge instructions given to patient, Instructed on discharge instructions, follow up and referral plans. Demonstrated understanding of instructions, follow-up care. 13:48 Patient left the ED. mg2 Signatures: Carlton Whitaker MD MD rn Smirch, Shelby, RN RN ss Gurjit Zazueta RN RN mg2 Corrections: (The following items were deleted from the chart) 13:21 13:11 Acuity: VICTOR HUGO 2 mg2 mg2 13:33 13:33 General: Appears in no apparent distress. comfortable, mg2 mg2 13:33 13:33 Pain: mg2 mg2
[2018-11-17 15:49] LABS: Urine Blood TRACE (NEG); Urine Glucose NEGATIVE (NEG); Urine Protein NEGATIVE (NEG); Urine Specific Gravity 1.025 (1.005-1.030); Urine pH 6.5 (5.0-7.0)
== END 2018-11-17 13:48 | disposition home or self-care (01) ==
LOC: ER 13:05
DX: G89.29 Other chronic pain (principal); F20.9 Schizophrenia, unspecified; F31.9 Bipolar disorder, unspecified; F17.210 Nicotine dependence, cigarettes, uncomplicated
CPT/HCPCS: 81003; 99283

== ENCOUNTER 2018-11-18 18:38 | Emergency (ER) | payer OTHER ==
--- OUTSIDE RECORDS SUMMARY | 2018-11-18 18:44 | XMS REPORT | Clinical Summary ---
:1965 Author Organization [facility] Address [address] [place] [address] Care Team Providers Name Role Phone Pcp, [...] Only General Internal Medicine 08/13/2018 Travel after 11/17/2017 Social History Tobacco Use Types Packs/Day Years [...] 388 ms QTC Calculation(Bazett) 455 ms P [place] 80 degrees R [place] 68 degrees T [place] 68 degrees Normal sinus rhythm Incomplete right [...] 416 ms QTC Calculation(Bazett) 422 ms P [place] 82 degrees R [place] 85 degrees T [place] 79 degrees Normal sinus rhythm Incomplete right [...] 416 ms QTC Calculation(Bazett) 408 ms P [place] 76 degrees R [place] 76 degrees T [place] 74 degrees Sinus bradycardia Otherwise normal ECG No previous ECGs available ECG 12-LEAD STAT 08/13/2018 10:51 PM CDT after 11/17/2017 Results EKG-SCANNED (11/13/2018 11:15 AM CDT)Only the most recent of3 resultswithin the time period is included. Narrative Performed At Rapid drug screen, urine (11/08/2018 11:52 PM CDT)Only the most recent of3 resultswithin the time period is included. Barbiturate Screen Negative Negative [facility] Benzodiazepine Screen Positive (A) Negative [facility] Cocaine (Metab.) Screen Negative Negative [facility] Methadone Screen Negative Negative [facility] Opiate Screen Negative Negative [facility] Cannabinoid Screen Negative Negative [facility] Amph/Methamph Screen Positive (A) Negative [facility] Phencyclidine Screen Negative Negative [facility] Specimen Urine Narrative Performed At [facility] Cocaine 300 ng/mL Sfceyndtwis20 ng/mL Lxbitqhatsnlch482 ng/mL Barbiturate 200 ng/mL Kxrthczhjsabb54 ng/mL Dtumrw075 ng/mL Methadone 300 ng/mL Amphetamine/ 1000 ng/mL Methamphetamine This assay provides an unconfirmed qualitative test result for the clinical management of patients in emergency situations. Chain of custody not maintained. Some kfql-cln-cmlztsj medications, as well as adulterants, may cause inaccurate results. Clinical correlation should be applied. A more comprehensive drug screen or confirmation of a detected drug may be performed upon request. Performing Organization Address City/State/Zipcode Phone Number [facility] [address] [place] [address] CBC with platelet count + automated diff (11/08/2018 11:08 PM CDT)Only the most recent of3 resultswithin the time period is included. WBC 9.0 4.0 - 10.0 K/L [facility] RBC 3.91 (L) 4.20 - 5.80 M/L [facility] Hemoglobin 12.0 (L) 13.0 - 16.8 GM/DL [facility] Hematocrit 36.3 36.0 - 50.0 % [facility] MCV 92.8 82.0 - 99.0 fL [facility] MCH 30.7 27.0 - 33.0 pg [facility] MCHC 33.1 32.0 - 36.0 GM/DL [facility] RDW 12.9 12.0 - 15.0 % [facility] Platelets 315 150 - 430 K/CU MM [facility] MPV 9.0Comment: 6.0 - 11.5 fL [facility] MPV-Approximately 20% positive bias due to method change. nRBC 0 0 - 0 /100 WBC [facility] % Neutros 64 % [facility] % Lymphs 23 % [facility] % Monos 9 % [facility] % Eos 3 % [facility] % Baso 1 % [facility] # Neutros 5.81 1.80 - 8.00 K/L [facility] # Lymphs 2.03 1.48 - 4.50 K/L [facility] # Monos 0.81 0.00 - 1.30 K/L [facility] # Eos 0.25 0.00 - 0.50 K/L [facility] # Baso 0.10 0.00 - 0.20 K/L [facility] Immature 0 0 - 0 % [facility] Granulocytes-Relative Specimen Blood Performing Organization Address [facility] Phone Number [facility] [address] [place] [address] Phosphorus (11/08/2018 11:08 PM CDT) Phosphorus 3.2 2.5 - 4.5 mg/dL [facility] Specimen Blood Performing Organization Address [facility] Number [facility] [id number] [place] [address] Magnesium (11/08/2018 11:08 PM CDT) Magnesium 2.1 1.5 - 3.0 mg/dL [facility] Specimen Blood Performing Organization Address [facility]/[place] [address] Ethanol (11/08/2018 11:08 PM CDT)Only the most recent of3 resultswithin the time period is included. Ethanol Lvl <10 <=10 mg/dL [facility] Specimen Blood Performing Organization Address [facility]/[place] [address] [phone] Acetaminophen level (11/08/2018 11:08 PM CDT)Only the most recent of3 resultswithin the time period is included. Acetaminophen Level 9.4 (L) 10.0 - 30.0 ug/mL [facility] Specimen Blood Performing Organization Address [facility] Number [facility] [address] [place] [address] Salicylate level (11/08/2018 11:08 PM CDT)Only the most recent of3 resultswithin the time period is included. Salicylate Lvl <5.0 (L) 20.0 - 30.0 mg/dL [facility] Specimen Blood Performing Organization Address [facility] Number [address] [address] Hepatic function panel (11/08/2018 11:08 PM CDT) Protein, Total 6.6 6.0 - 8.5 gm/dL [facility] Albumin 4.0 3.5 - 5.0 g/dL [facility] Total Bilirubin 0.3 0.1 - 1.3 mg/dL [facility] Bilirubin, Direct 0.1 0.0 - 0.5 mg/dL [facility] Alkaline Phosphatase 81 30 - 115 U/L [facility] AST 22 5 - 40 U/L [facility] ALT 15 6 - 50 U/L [facility] Specimen Blood Performing Organization Address [facility] Phone Number [facility] [address] [place] [address] [phone] Basic Metabolic Panel (11/08/2018 11:08 PM CDT)Only the most recent of2 resultswithin the time period is included. Sodium 137 135 - 148 meq/L [facility] Potassium 3.6 3.5 - 5.5 meq/L [facility] Chloride 104 98 - 106 meq/L [facility] CO2 23 20 - 31 meq/L [facility] BUN 30 (H) 10 - 26 mg/dL [facility] Creatinine 0.91 0.50 - 1.20 mg/dL [facility] Glucose 126 (H) 70 - 110 mg/dL [facility] Calcium 8.7 8.5 - 10.5 mg/dL [facility] EGFR 87Comment: ESTIMATED GFR IS NOT mL/min/1.73 sq m [facility] ACCURATE CREATININE CLEARANCE IN PREDICTING GLOMERULAR FILTRATION RATE. ESTIMATED GFR IS NOT APPLICABLE FOR DIALYSIS PATIENTS. Specimen Blood Performing Organization Address City/[facility] Phone Number [facility] [address] [place] [address] ECG 12 lead (11/08/2018 11:02 PM CDT)Only the most recent of3 resultswithin the time period is included. Specimen Narrative Performed At Ventricular Rate 83 BPM GE MUSE Atrial Rate 83 BPM P-R Interval 156 ms QRS Duration 106 ms Q-T Interval 388 ms QTC Calculation(Bazett) 455 ms P [place] 80 degrees R [place] 68 degrees T [place] 68 degrees Normal sinus rhythm Incomplete right bundle branch block Borderline ECG Procedure Note Interface, External Ris In - 11/10/2018 4:36 PM CDT Ventricular Rate 83 BPM Atrial Rate 83 BPM P-R Interval 156 ms QRS Duration 106 ms Q-T Interval 388 ms QTC Calculation(Bazett) 455 ms P [place] 80 degrees R [place] 68 degrees T [place] 68 degrees Normal sinus rhythm Incomplete right bundle branch block Borderline ECG Performing Organization Address [facility] Phone Number [facility] Urinalysis w/Microscopic + Reflex to Culture (09/12/2018 1:08 AM CDT) Color, UA Yellow [facility] Clarity, UA Clear [facility] Specific Gilbert, UA 1.015 1.001 - 1.035 [facility] pH, UA 6.0 5.0 - 8.0 [facility] Protein, UA Negative Negative [facility] Glucose, UA Negative Negative [facility] Ketones, UA 20 mg/dL (A) Negative [facility] Bilirubin, UA Negative Negative [facility] Blood, UA Negative Negative [facility] Nitrite, UA Negative Negative [facility] Leukocytes, UA Small (A) Negative [facility] Urobilinogen, UA 2.0 (H) 0.2 - 1.0 mg/dL [facility] RBC, UA 4 /HPF [facility] WBC, UA 21 /HPF [facility] Bacteria, UA Few [facility] Mucus Moderate [facility] Squam Epithel, UA <1 /HPF [facility] Specimen Source [facility] Specimen Urine Performing Organization Address [facility] Phone Number [facility] [address] [place] [address] Urine culture (09/12/2018 1:08 AM CDT) Result 60-69,000 col/mL skin bhupendra [facility] Specimen Urine Performing Organization Address [facility] Phone Number [facility] [address] [place] [address] Lipase (09/11/2018 10:11 PM CDT) Lipase 17 8 - 78 U/L [facility] Specimen Blood Performing Organization Address [facility] Phone Number [facility] [address] [place] [address] Comprehensive metabolic panel (09/11/2018 10:11 PM CDT) Protein, Total 7.2Comment: Specimen 6.0 - 8.5 gm/dL [facility] markedly hemolyzed Albumin 4.1Comment: Specimen 3.5 - 5.0 g/dL [facility] markedly hemolyzed Alkaline Phosphatase 76 30 - 115 U/L [facility] Total Bilirubin 0.5Comment: Specimen 0.1 - 1.3 mg/dL [facility] markedly hemolyzed Sodium 139 135 - 148 meq/L [facility] Potassium 4.9Comment: Specimen 3.5 - 5.5 meq/L [facility] markedly hemolyzed Chloride 106 98 - 106 meq/L [facility] CO2 23 20 - 31 meq/L [facility] BUN 7 (L) 10 - 26 mg/dL [facility] Creatinine 0.83Comment: Specimen 0.50 - 1.20 mg/dL [facility] markedly hemolyzed Glucose 82 70 - 110 mg/dL [facility] Calcium 9.5 8.5 - 10.5 mg/dL [facility] AST 37Comment: Specimen 5 - 40 U/L [facility] markedly hemolyzed ALT 23Comment: Specimen 6 - 50 U/L [facility] markedly hemolyzed EGFR 97Comment: ESTIMATED GFR mL/min/1.73 sq m [facility] IS NOT ACCURATE CREATININE CLEARANCE IN PREDICTING GLOMERULAR FILTRATION RATE. ESTIMATED GFR IS NOT APPLICABLE FOR DIALYSIS PATIENTS. Specimen Blood Performing Organization Address City/State/Zipcode Phone Number [facility] [address] [place] [address] [phone] ECG/EKG Interpretation (09/11/2018 8:44 PM CDT)Only the [...] RBBB. ST segments normal. T waves normal. [place] is normal. Other findings: no other findings. Right sided lead use: right-sided leads not used. Left sided lead use: Posterior leads were not used. Clinical Impression: abnormal ECGECG reviewed and does not meet STEMI criteria. Patient tolerance: Patient tolerated the procedure well with no immediate complications after 11/17/2017 Insurance Payer Benefit Plan / Group Subscriber ID Type Phone Address [facility] xxxxxxxxx
--- OUTSIDE RECORDS SUMMARY | 2018-11-18 18:45 | XMS REPORT ---
:1965 [facility] Address [address] [place] [address] Care Team Providers Name Role Phone ISIAH [...] Reference Range Comments BARBITURATE URINE (BEAKER) (test tlob=857) Negative Negative BENZODIAZEPINE SCREEN URINE (BEAKER) (test vunq=745) Positive Negative COCAINE (METAB.) SCREEN (BEAKER) (test ywni=7601) Negative Negative METHADONE SCREEN (BEAKER) (test ojrb=0566) Negative Negative OPIATE SCREEN URINE (BEAKER) (test qprh=602) Negative Negative CANNABINOID SCREEN URINE (BEAKER) (test dkwe=329) Negative Negative AMPH/METHAMPH SCREEN (BEAKER) (test cakf=9311) Positive Negative PHENCYCLIDINE SCREEN URINE (BEAKER) (test izrf=572) Negative Negative DRUG CUTOFF CONC.Cocaine 300 ng/mL Cannabinoid 50 ng/mLBenzodiazepine 200 ng/mLBarbiturate 200 ng/ mLPhencyclidine 25 ng/mLOpiate 300 ng/mLMethadone 300 ng/mLAmphetamine/ 1000 ng/mL MethamphetamineThis assay provides an unconfirmed qualitative test result for the clinical management of patients in emergency situations. Chain of custody not maintained. Some wjlr-jna-oziwihq medications, as well as adulterants, may cause inaccurate results. Clinical correlation should be applied. A more comprehensivedrug screen or confirmation of a detected drug may be performed upon request.[id number] 23:53:00 Test Item Value Reference Range Comments ETHANOL (BEAKER) (test yens=053) < mg/dL <=10 [id number] 23:41:00 Test Item Value Reference Range Comments PHOSPHORUS (BEAKER) (test okub=631) 3.2 mg/dL 2.5-4.5 [id number] 23:41:00 Test Item Value Reference Range Comments MAGNESIUM (BEAKER) (test vits=984) 2.1 mg/dL 1.5-3.0 BASIC METABOLIC [id number] 23:41:00 Test Item Value Reference Range Comments SODIUM (BEAKER) (test 137 meq/L 135-148 gyvc=926) POTASSIUM (BEAKER) (test 3.6 meq/L 3.5-5.5 bwwr=928) CHLORIDE (BEAKER) (test 104 meq/L 98-106 odfc=209) CO2 (BEAKER) (test 23 meq/L 20-31 nqtt=993) BLOOD UREA NITROGEN 30 mg/dL 10-26 (BEAKER) (test dddy=485) CREATININE (BEAKER) (test 0.91 mg/dL 0.50-1.20 vsal=676) GLUCOSE RANDOM (BEAKER) 126 mg/dL 70-110 (test yfoi=198) CALCIUM (BEAKER) (test 8.7 mg/dL 8.5-10.5 vlvt=705) EGFR (BEAKER) (test 87 mL/min/1.73 sq m ESTIMATED GFR IS NOT lwom=8159) ACCURATE CREATININE CLEARANCE IN PREDICTING GLOMERULAR FILTRATION RATE. ESTIMATED GFR IS NOT APPLICABLE FOR DIALYSIS PATIENTS. HEPATIC FUNCTION [id number] 23:41:00 Test Item Value Reference Range Comments TOTAL PROTEIN (BEAKER) (test pdde=804) 6.6 gm/dL 6.0-8.5 ALBUMIN (BEAKER) (test rcey=6589) 4.0 g/dL 3.5-5.0 BILIRUBIN TOTAL (BEAKER) (test hdar=503) 0.3 mg/dL 0.1-1.3 BILIRUBIN DIRECT (BEAKER) (test lpqd=957) 0.1 mg/dL 0.0-0.5 ALKALINE PHOSPHATASE (BEAKER) (test ityy=107) 81 U/L 30-115 AST (SGOT) (BEAKER) (test ntsm=944) 22 U/L 5-40 ALT (SGPT) (BEAKER) (test tcnm=502) 15 U/L 6-50 SALICYLATE [id number] 23:39:00 Test Item Value Reference Range Comments SALICYLATE LEVEL (BEAKER) (test aend=481) < mg/dL 20.0-30.0 ACETAMINOPHEN [id number] 23:38:00 Test Item Value Reference Range Comments ACETAMINOPHEN LEVEL (BEAKER) (test svoe=395) 9.4 ug/mL 10.0-30.0 CBC W/PLT COUNT & AUTO [id number] 23:15:00 Test Item Value Reference Range Comments WHITE BLOOD CELL COUNT (BEAKER) 9.0 K/ L 4.0-10.0 (test aqbl=831) RED BLOOD CELL COUNT (BEAKER) 3.91 M/ L 4.20-5.80 (test pkbo=187) HEMOGLOBIN (BEAKER) (test 12.0 GM/DL 13.0-16.8 zuef=823) HEMATOCRIT (BEAKER) (test 36.3 % 36.0-50.0 boou=791) MEAN CORPUSCULAR VOLUME 92.8 fL 82.0-99.0 (BEAKER) (test sqlo=534) MEAN CORPUSCULAR HEMOGLOBIN 30.7 pg 27.0-33.0 (BEAKER) (test glms=191) MEAN CORPUSCULAR HEMOGLOBIN 33.1 GM/DL 32.0-36.0 CONC (BEAKER) (test enlu=042) RED CELL DISTRIBUTION WIDTH 12.9 % 12.0-15.0 (BEAKER) (test mlau=207) PLATELET COUNT (BEAKER) (test 315 K/CU MM 150-430 slvh=665) MEAN PLATELET VOLUME (BEAKER) 9.0 fL 6.0-11.5 MPV-Approximately 20% (test sfex=681) positive bias due to method change. NUCLEATED RED BLOOD CELLS 0 /100 WBC 0-0 (BEAKER) (test gjte=597) NEUTROPHILS RELATIVE PERCENT 64 % (BEAKER) (test vcgi=347) LYMPHOCYTES RELATIVE PERCENT 23 % (BEAKER) (test rgws=515) MONOCYTES RELATIVE PERCENT 9 % (BEAKER) (test alsv=956) EOSINOPHILS RELATIVE PERCENT 3 % (BEAKER) (test trls=820) BASOPHILS RELATIVE PERCENT 1 % (BEAKER) (test ukgn=115) NEUTROPHILS ABSOLUTE COUNT 5.81 K/ L 1.80-8.00 (BEAKER) (test hnkb=454) LYMPHOCYTES ABSOLUTE COUNT 2.03 K/ L 1.48-4.50 (BEAKER) (test xfdc=881) MONOCYTES ABSOLUTE COUNT 0.81 K/ L 0.00-1.30 (BEAKER) (test tukb=966) EOSINOPHILS ABSOLUTE COUNT 0.25 K/ L 0.00-0.50 (BEAKER) (test nray=175) BASOPHILS ABSOLUTE COUNT 0.10 K/ L 0.00-0.20 (BEAKER) (test hdhs=820) IMMATURE GRANULOCYTES-RELATIVE 0 % 0-0 PERCENT (BEAKER) (test tpbh=1879) URINALYSIS [id number] 00:50:00 Test Item Value Reference Range Comments [...] RESULTS VERIFIED WITH AUTO-DILUTION PROCEDURES. COMPREHENSIVE METABOLIC [id number] 17:20:00 Test Item Value Reference Range Comments [...] NORMAL <50 MG 1 NORMAL code=LIPINDEX) Index/DL [id number] 17:20:00 Test Item Value Reference Range Comments MAGNESIUM (test code=MAG) 2.7 MG/DL 1.6-2.6 COMPREHENSIVE METABOLIC [id number] 17:17:00 Test Item Value Reference Range Comments [...] NORMAL <50 MG 1 NORMAL code=LIPINDEX) Index/DL [id number] 17:17:00 Test Item Value Reference Range Comments MAGNESIUM (test code=MAG) 2.7 MG/DL 1.6-2.6 CBC W/AUTO [id number] 17:03:00 Test Item Value Reference Range Comments [...] code=NRBC#) 0.00 K/mm3 0.00-0.05 RAPID DRUG SCREEN, [id number] 01:40:00 Test Item Value Reference Range Comments BARBITURATE URINE (BEAKER) (test msma=042) Negative Negative BENZODIAZEPINE SCREEN URINE (BEAKER) (test Negative Negative yttg=517) COCAINE (METAB.) SCREEN (BEAKER) (test kfrv=5154) Negative Negative METHADONE SCREEN (BEAKER) (test xpwy=0587) Negative Negative OPIATE SCREEN URINE (BEAKER) (test otlb=717) Negative Negative CANNABINOID SCREEN URINE (BEAKER) (test tzez=564) Negative Negative AMPH/METHAMPH SCREEN (BEAKER) (test imjz=8124) Negative Negative PHENCYCLIDINE SCREEN URINE (BEAKER) (test grsz=310) Negative Negative DRUG CUTOFF CONC.Cocaine 300 ng/mL Cannabinoid 50 ng/mLBenzodiazepine 200 ng/mLBarbiturate 200 ng/ mLPhencyclidine 25 ng/mLOpiate 300 ng/mLMethadone 300 ng/mLAmphetamine/ 1000 ng/mL MethamphetamineThis assay provides an unconfirmed qualitative test result for the clinical management of patients in emergency situations. Chain of custody not maintained. Some fyrn-zrb-vwfssxn medications, as well as adulterants, may cause inaccurate results. Clinical correlation should be applied. A more comprehensivedrug screen or confirmation of a detected drug may be performed upon request.URINALYSIS W/ REFLEX URINE [id number] 01:23:00 Test Item Value Reference Range Comments COLOR (BEAKER) (test xtiw=115) Yellow CLARITY (BEAKER) (test jndm=517) Clear SPECIFIC GRAVITY UA (BEAKER) (test wjrj=049) 1.015 1.001-1.035 PH UA (BEAKER) (test rfkf=846) 6.0 5.0-8.0 PROTEIN UA (BEAKER) (test cynt=417) Negative Negative GLUCOSE UA (BEAKER) (test byvi=178) Negative Negative KETONES UA (BEAKER) (test qsgj=361) 20 mg/dL Negative BILIRUBIN UA (BEAKER) (test dabv=173) Negative Negative BLOOD UA (BEAKER) (test mhdu=529) Negative Negative NITRITE UA (BEAKER) (test lbta=492) Negative Negative LEUKOCYTE ESTERASE UA (BEAKER) (test ahfj=460) Small Negative UROBILINOGEN UA (BEAKER) (test onoj=394) 2.0 mg/dL 0.2-1.0 RBC UA (BEAKER) (test xmmj=559) 4 /HPF WBC UA (BEAKER) (test xcou=707) 21 /HPF BACTERIA (BEAKER) (test madv=462) Few MUCUS (BEAKER) (test zwbv=3964) Moderate SQUAMOUS EPITHELIAL (BEAKER) (test nckp=317) < /HPF SOURCE(BEAKER) (test uori=6914) [id number] 23:00:00 Test Item Value Reference Range Comments LIPASE (BEAKER) (test sjfw=773) 17 U/L 8-78 COMPREHENSIVE METABOLIC [id number] 23:00:00 Test Item Value Reference Range Comments TOTAL PROTEIN (BEAKER) 7.2 gm/dL 6.0-8.5 Specimen markedly (test cmti=477) hemolyzed ALBUMIN (BEAKER) (test 4.1 g/dL 3.5-5.0 Specimen markedly lsji=5348) hemolyzed ALKALINE PHOSPHATASE 76 U/L 30-115 (BEAKER) (test wgwb=347) BILIRUBIN TOTAL (BEAKER) 0.5 mg/dL 0.1-1.3 Specimen markedly (test dlid=944) hemolyzed SODIUM (BEAKER) (test 139 meq/L 135-148 sfga=152) POTASSIUM (BEAKER) (test 4.9 meq/L 3.5-5.5 Specimen markedly hymy=058) hemolyzed CHLORIDE (BEAKER) (test 106 meq/L 98-106 saty=881) CO2 (BEAKER) (test 23 meq/L 20-31 zsco=890) BLOOD UREA NITROGEN 7 mg/dL 10-26 (BEAKER) (test tmum=088) CREATININE (BEAKER) (test 0.83 mg/dL 0.50-1.20 Specimen markedly cnko=630) hemolyzed GLUCOSE RANDOM (BEAKER) 82 mg/dL 70-110 (test iifd=103) CALCIUM (BEAKER) (test 9.5 mg/dL 8.5-10.5 goim=856) AST (SGOT) (BEAKER) (test 37 U/L 5-40 Specimen markedly pmug=937) hemolyzed ALT (SGPT) (BEAKER) (test 23 U/L 6-50 Specimen markedly jmsd=608) hemolyzed EGFR (BEAKER) (test 97 mL/min/1.73 sq m ESTIMATED GFR IS NOT cszq=5323) ACCURATE CREATININE CLEARANCE IN PREDICTING GLOMERULAR FILTRATION RATE. ESTIMATED GFR IS NOT APPLICABLE FOR DIALYSIS PATIENTS. ACETAMINOPHEN [id number] 22:57:00 Test Item Value Reference Range Comments ACETAMINOPHEN LEVEL (BEAKER) < ug/mL 10.0-30.0 Specimen markedly hemolyzed (test yekf=759) SALICYLATE [id number] 22:52:00 Test Item Value Reference Range Comments SALICYLATE LEVEL (BEAKER) (test eyzp=281) < mg/dL 20.0-30.0 [id number] 22:47:00 Test Item Value Reference Range Comments ETHANOL (BEAKER) (test uyiy=939) < mg/dL <=10 CBC W/PLT COUNT & AUTO [id number] 22:24:00 Test Item Value Reference Range Comments WHITE BLOOD CELL COUNT (BEAKER) 5.5 K/ L 4.0-10.0 (test emav=162) RED BLOOD CELL COUNT (BEAKER) 4.12 M/ L 4.20-5.80 (test omuh=056) HEMOGLOBIN (BEAKER) (test 13.0 GM/DL 13.0-16.8 xxqn=833) HEMATOCRIT (BEAKER) (test 39.0 % 36.0-50.0 dgpq=018) MEAN CORPUSCULAR VOLUME 94.7 fL 82.0-99.0 (BEAKER) (test vcxp=242) MEAN CORPUSCULAR HEMOGLOBIN 31.6 pg 27.0-33.0 (BEAKER) (test fqdr=271) MEAN CORPUSCULAR HEMOGLOBIN 33.3 GM/DL 32.0-36.0 CONC (BEAKER) (test hckq=555) RED CELL DISTRIBUTION WIDTH 13.6 % 12.0-15.0 (BEAKER) (test inlu=363) PLATELET COUNT (BEAKER) (test 321 K/CU MM 150-430 qlqb=043) MEAN PLATELET VOLUME (BEAKER) 8.9 fL 6.0-11.5 MPV-Approximately 20% (test hnox=523) positive bias due to method change. NUCLEATED RED BLOOD CELLS 0 /100 WBC 0-0 (BEAKER) (test orkz=342) NEUTROPHILS RELATIVE PERCENT 59 % (BEAKER) (test tuew=619) LYMPHOCYTES RELATIVE PERCENT 31 % (BEAKER) (test ytrx=704) MONOCYTES RELATIVE PERCENT 7 % (BEAKER) (test pbpb=562) EOSINOPHILS RELATIVE PERCENT 2 % (BEAKER) (test fetr=267) BASOPHILS RELATIVE PERCENT 1 % (BEAKER) (test nlud=918) NEUTROPHILS ABSOLUTE COUNT 3.21 K/ L 1.80-8.00 (BEAKER) (test ecpu=985) LYMPHOCYTES ABSOLUTE COUNT 1.68 K/ L 1.48-4.50 (BEAKER) (test johd=829) MONOCYTES ABSOLUTE COUNT 0.38 K/ L 0.00-1.30 (BEAKER) (test zcee=273) EOSINOPHILS ABSOLUTE COUNT 0.12 K/ L 0.00-0.50 (BEAKER) (test qthp=258) BASOPHILS ABSOLUTE COUNT 0.05 K/ L 0.00-0.20 (BEAKER) (test igra=472) IMMATURE GRANULOCYTES-RELATIVE 0 % 0-0 PERCENT (BEAKER) (test yawj=2495) RAPID DRUG SCREEN, [id number] 23:37:00 Test Item Value Reference Range Comments BARBITURATE URINE (BEAKER) (test zjxp=768) Negative Negative BENZODIAZEPINE SCREEN URINE (BEAKER) (test Negative Negative egom=732) COCAINE (METAB.) SCREEN (BEAKER) (test iydp=2445) Negative Negative METHADONE SCREEN (BEAKER) (test deeg=0448) Negative Negative OPIATE SCREEN URINE (BEAKER) (test wkws=775) Negative Negative CANNABINOID SCREEN URINE (BEAKER) (test meuk=511) Negative Negative AMPH/METHAMPH SCREEN (BEAKER) (test odfv=5670) Positive Negative PHENCYCLIDINE SCREEN URINE (BEAKER) (test bjcb=290) Negative Negative DRUG CUTOFF CONC.Cocaine 300 ng/mL Cannabinoid 50 ng/mLBenzodiazepine 200 ng/mLBarbiturate 200 ng/ mLPhencyclidine 25 ng/mLOpiate 300 ng/mLMethadone 300 ng/mLAmphetamine/ 1000 ng/mL MethamphetamineThis assay provides an unconfirmed qualitative test result for the clinical management of patients in emergency situations. Chain of custody not maintained. Some owim-dpe-ujexnqb medications, as well as adulterants, may cause inaccurate results. Clinical correlation should be applied. A more comprehensivedrug screen or confirmation of a detected drug may be performed upon request.BASIC METABOLIC [id number] 23:37:00 Test Item Value Reference Range Comments SODIUM (BEAKER) (test 141 meq/L 135-148 upsw=411) POTASSIUM (BEAKER) (test 3.2 meq/L 3.5-5.5 ctps=363) CHLORIDE (BEAKER) (test 107 meq/L 98-106 bwui=821) CO2 (BEAKER) (test 26 meq/L 20-31 uzie=847) BLOOD UREA NITROGEN 18 mg/dL 10-26 (BEAKER) (test wbrm=649) CREATININE (BEAKER) (test 0.79 mg/dL 0.50-1.20 wigm=471) GLUCOSE RANDOM (BEAKER) 94 mg/dL 70-110 (test hhqy=497) CALCIUM (BEAKER) (test 9.1 mg/dL 8.5-10.5 kvdf=390) EGFR (BEAKER) (test 102 mL/min/1.73 sq m ESTIMATED GFR IS NOT rpgs=6918) ACCURATE CREATININE CLEARANCE IN PREDICTING GLOMERULAR FILTRATION RATE. ESTIMATED GFR IS NOT APPLICABLE FOR DIALYSIS PATIENTS. SALICYLATE [id number] 23:28:00 Test Item Value Reference Range Comments SALICYLATE LEVEL (BEAKER) (test uvwe=338) < mg/dL 20.0-30.0 ACETAMINOPHEN [id number] 23:25:00 Test Item Value Reference Range Comments ACETAMINOPHEN LEVEL (BEAKER) (test vytc=950) 8.6 ug/mL 10.0-30.0 [id number] 23:23:00 Test Item Value Reference Range Comments ETHANOL (BEAKER) (test emym=402) < mg/dL <=10 CBC W/PLT COUNT & AUTO [id number] 23:03:00 Test Item Value Reference Range Comments WHITE BLOOD CELL COUNT (BEAKER) 5.5 K/ L 4.0-10.0 (test ufcl=053) RED BLOOD CELL COUNT (BEAKER) 3.90 M/ L 4.20-5.80 (test uied=604) HEMOGLOBIN (BEAKER) (test 12.3 GM/DL 13.0-16.8 pxnd=692) HEMATOCRIT (BEAKER) (test 37.0 % 36.0-50.0 onkc=396) MEAN CORPUSCULAR VOLUME 94.9 fL 82.0-99.0 (BEAKER) (test ihhf=970) MEAN CORPUSCULAR HEMOGLOBIN 31.5 pg 27.0-33.0 (BEAKER) (test aiht=227) MEAN CORPUSCULAR HEMOGLOBIN 33.2 GM/DL 32.0-36.0 CONC (BEAKER) (test pdbw=415) RED CELL DISTRIBUTION WIDTH 13.3 % 12.0-15.0 (BEAKER) (test hxbj=785) PLATELET COUNT (BEAKER) (test 294 K/CU MM 150-430 zmls=211) MEAN PLATELET VOLUME (BEAKER) 8.6 fL 6.0-11.5 MPV-Approximately 20% (test rmjn=620) positive bias due to method change. NUCLEATED RED BLOOD CELLS 0 /100 WBC 0-0 (BEAKER) (test tope=178) NEUTROPHILS RELATIVE PERCENT 50 % (BEAKER) (test qeds=102) LYMPHOCYTES RELATIVE PERCENT 37 % (BEAKER) (test hgoz=600) MONOCYTES RELATIVE PERCENT 7 % (BEAKER) (test zoxr=936) EOSINOPHILS RELATIVE PERCENT 5 % (BEAKER) (test rtwc=624) BASOPHILS RELATIVE PERCENT 1 % (BEAKER) (test szyr=825) NEUTROPHILS ABSOLUTE COUNT 2.73 K/ L 1.80-8.00 (BEAKER) (test vcmz=683) LYMPHOCYTES ABSOLUTE COUNT 2.05 K/ L 1.48-4.50 (BEAKER) (test yrbn=044) MONOCYTES ABSOLUTE COUNT 0.39 K/ L 0.00-1.30 (BEAKER) (test gnrg=855) EOSINOPHILS ABSOLUTE COUNT 0.26 K/ L 0.00-0.50 (BEAKER) (test smdu=374) BASOPHILS ABSOLUTE COUNT 0.07 K/ L 0.00-0.20 (BEAKER) (test tkvt=061) IMMATURE GRANULOCYTES-RELATIVE 0 % 0-0 PERCENT (BEAKER) (test iezb=7858) COMPREHENSIVE METABOLIC [id number] 05:21:00 Test Item Value Reference Range Comments [...] MG 1 NORMAL code=LIPINDEX) Index/DL CBC W/AUTO [id number] 04:58:00 Test Item Value Reference Range Comments [...] code=NRBC#) 0.00 K/mm3 0.00-0.05 RAPID DRUG SCREEN, [id number] 10:16:00 Test Item Value Reference Range Comments BARBITURATE URINE (BEAKER) (test kslm=882) Negative Negative BENZODIAZEPINE SCREEN URINE (BEAKER) (test Negative Negative hwtr=750) COCAINE (METAB.) SCREEN (BEAKER) (test fsnp=1202) Negative Negative METHADONE SCREEN (BEAKER) (test psny=3126) Negative Negative OPIATE SCREEN URINE (BEAKER) (test nihy=383) Negative Negative CANNABINOID SCREEN URINE (BEAKER) (test ygzi=071) Negative Negative AMPH/METHAMPH SCREEN (BEAKER) (test qrvt=7072) Negative Negative PHENCYCLIDINE SCREEN URINE (BEAKER) (test dzpx=278) Negative Negative OXYCODONE SCREEN URINE (BEAKER) (test remj=0648) Negative Negative DRUG CUTOFF CONC.Cocaine 300 ng/mL Cannabinoid 50 ng/mL Benzodiazepine 200 ng/mLBarbiturate 200 ng/ mLPhencyclidine 25 ng/mLOpiate 300 ng/mLMethadone 300 ng/mLAmphetamine/ 1000 ng/mL MethamphetamineOxycodone 300 ng/mLThis assay provides an unconfirmed qualitative test result for the clinical management of patients in emergency situations. Chain of custody not maintained. Some geig-cwz-wiukupj medications, as well as adulterants, may cause inaccurate results. Clinical correlation should be applied. A more comprehensive drug screen or confirmation of a detected drug may be performed upon request.URINALYSIS W/ [id number] 08:52:00 Test Item Value Reference Range Comments COLOR (BEAKER) (test jofc=912) Yellow CLARITY (BEAKER) (test kzpb=829) Clear SPECIFIC GRAVITY UA (BEAKER) (test qsly=760) 1.013 1.001-1.035 PH UA (BEAKER) (test zrfy=956) 6.0 5.0-8.0 PROTEIN UA (BEAKER) (test mwlq=464) Negative Negative GLUCOSE UA (BEAKER) (test hviw=272) Negative Negative KETONES UA (BEAKER) (test wufk=291) Negative Negative BILIRUBIN UA (BEAKER) (test mkpm=543) Negative Negative BLOOD UA (BEAKER) (test qdvk=888) Negative Negative NITRITE UA (BEAKER) (test rixu=957) Negative Negative LEUKOCYTE ESTERASE UA (BEAKER) (test fmho=350) Negative Negative UROBILINOGEN UA (BEAKER) (test bvop=211) 0.2 mg/dL 0.2-1.0 RBC UA (BEAKER) (test ojuw=056) 1 /HPF WBC UA (BEAKER) (test jeia=298) < /HPF MUCUS (BEAKER) (test qtlo=6579) Rare SOURCE(BEAKER) (test tfem=3902) Urine, Voided TSH/FREE T4 IF [id number] 01:43:00 Test Item Value Reference Range Comments THYROID STIMULATING HORMONE (BEAKER) (test 1.16 uIU/mL 0.35-4.94 fwsa=638) HEPATIC FUNCTION [id number] 01:07:00 Test Item Value Reference Range Comments TOTAL PROTEIN (BEAKER) (test nrkd=359) 6.4 gm/dL 6.0-8.3 ALBUMIN (BEAKER) (test iqxk=8817) 4.0 g/dL 3.5-5.0 BILIRUBIN TOTAL (BEAKER) (test wyoo=722) 0.5 mg/dL 0.2-1.2 BILIRUBIN DIRECT (BEAKER) (test saau=665) 0.2 mg/dL 0.1-0.5 ALKALINE PHOSPHATASE (BEAKER) (test twbt=649) 74 U/L 40-150 AST (SGOT) (BEAKER) (test vlrk=183) 38 U/L 5-34 ALT (SGPT) (BEAKER) (test ukva=136) 47 U/L 6-55 COMPREHENSIVE METABOLIC [id number] 01:07:00 Test Item Value Reference Range Comments TOTAL PROTEIN (BEAKER) 6.4 gm/dL 6.0-8.3 (test hkgq=525) ALBUMIN (BEAKER) (test 4.0 g/dL 3.5-5.0 kqsb=5784) ALKALINE PHOSPHATASE 74 U/L 40-150 (BEAKER) (test qvcx=202) BILIRUBIN TOTAL (BEAKER) 0.5 mg/dL 0.2-1.2 (test jquf=329) SODIUM (BEAKER) (test 140 meq/L 136-145 rdvy=181) POTASSIUM (BEAKER) (test 3.8 meq/L 3.5-5.1 stma=444) CHLORIDE (BEAKER) (test 109 meq/L 98-107 ylmi=612) CO2 (BEAKER) (test 23 meq/L 22-29 ebdp=183) BLOOD UREA NITROGEN 22 mg/dL 7-21 (BEAKER) (test jhmb=201) CREATININE (BEAKER) (test 0.74 mg/dL 0.57-1.25 mgsp=270) GLUCOSE RANDOM (BEAKER) 100 mg/dL 70-105 (test atjk=449) CALCIUM (BEAKER) (test 9.0 mg/dL 8.4-10.2 qmci=865) AST (SGOT) (BEAKER) (test 38 U/L 5-34 idoj=939) ALT (SGPT) (BEAKER) (test 47 U/L 6-55 hcpd=686) EGFR (BEAKER) (test 111 mL/min/1.73 sq ESTIMATED GFR IS NOT yvsa=4993) m ACCURATE CREATININE CLEARANCE IN PREDICTING GLOMERULAR FILTRATION RATE. ESTIMATED GFR IS NOT APPLICABLE FOR DIALYSIS PATIENTS. [id number] 01:03:00 Test Item Value Reference Range Comments ETHANOL (BEAKER) (test huif=562) < mg/dL <=10 LACTIC ACID, VENOUS, WHOLE [id number] 01:01:00 Test Item Value Reference Range Comments LACTATE BLOOD VENOUS (2) (BEAKER) (test 0.5 mmol/L 0.5-2.2 vtlb=8159) Effective 09/22/2015: Units/Reference Range ChangeNew: 0.5-2.2 mmol/L Previous: 5 -20 mg/dLCBC W/PLT COUNT & AUTO [id number] 00:51:00 Test Item Value Reference Range Comments WHITE BLOOD CELL COUNT (BEAKER) (test fhwm=305) 8.1 K/ L 3.5-10.5 RED BLOOD CELL COUNT (BEAKER) (test forz=193) 3.77 M/ L 4.63-6.08 HEMOGLOBIN (BEAKER) (test vytf=717) 11.6 GM/DL 13.7-17.5 HEMATOCRIT (BEAKER) (test nqlv=915) 35.8 % 40.1-51.0 MEAN CORPUSCULAR VOLUME (BEAKER) (test wpzw=745) 95.0 fL 79.0-92.2 MEAN CORPUSCULAR HEMOGLOBIN (BEAKER) (test 30.8 pg 25.7-32.2 eneo=758) MEAN CORPUSCULAR HEMOGLOBIN CONC (BEAKER) (test 32.4 GM/DL 32.3-36.5 srrf=882) RED CELL DISTRIBUTION WIDTH (BEAKER) (test 13.8 % 11.6-14.4 pumz=105) PLATELET COUNT (BEAKER) (test yuba=608) 261 K/CU MM 150-450 MEAN PLATELET VOLUME (BEAKER) (test eisf=213) 9.0 fL 9.4-12.4 NUCLEATED RED BLOOD CELLS (BEAKER) (test 0 /100 WBC 0-0 fqen=644) NEUTROPHILS RELATIVE PERCENT (BEAKER) (test 68 % qeqv=622) LYMPHOCYTES RELATIVE PERCENT (BEAKER) (test 23 % zkza=872) MONOCYTES RELATIVE PERCENT (BEAKER) (test 6 % jabc=955) EOSINOPHILS RELATIVE PERCENT (BEAKER) (test 2 % qpiv=191) BASOPHILS RELATIVE PERCENT (BEAKER) (test 1 % jral=473) NEUTROPHILS ABSOLUTE COUNT (BEAKER) (test 5.48 K/ L 1.78-5.38 ghdj=635) LYMPHOCYTES ABSOLUTE COUNT (BEAKER) (test 1.82 K/ L 1.32-3.57 orpn=746) MONOCYTES ABSOLUTE COUNT (BEAKER) (test 0.49 K/ L 0.30-0.82 wkdv=523) EOSINOPHILS ABSOLUTE COUNT (BEAKER) (test 0.17 K/ L 0.04-0.54 izzr=789) BASOPHILS ABSOLUTE COUNT (BEAKER) (test 0.09 K/ L 0.01-0.08 dtni=519) IMMATURE GRANULOCYTES-RELATIVE PERCENT (BEAKER) 0 % 0-1 (test hccn=3268) POCT-GLUCOSE [id number] 00:47:00 Test Item Value Reference Range Comments POC-GLUCOSE METER (BEAKER) 111 mg/dL 70-110 TESTED AT [facility] [address] (test panm=7986) [facility] [address]
[2018-11-18 21:01] LABS: Urine Blood NEGATIVE (NEG); Urine Glucose NEGATIVE (NEG); Urine Protein TRACE (NEG); Urine Specific Gravity 1.025 (1.005-1.030)
[2018-11-18 21:03] LABS: Absolute Lymphocytes (CBC) 1.9 K/uL (0.7-4.9); Basophils % 1.8 % (0-1.3); Hematocrit 39.1 % (39.6-49.0); Lymphocytes % 38.5 % (15.3-44.8); MPV 6.9 fL (7.6-11.3); Monocytes % 6.6 % (3.3-12.3)
[2018-11-18 21:11] LABS: Barbiturates NEGATIVE (NEGATIVE); Benzodiazepines NEGATIVE (NEGATIVE); Cocaine NEGATIVE (NEGATIVE); METHAMPHETAM NEGATIVE (NEGATIVE); Methadone NEGATIVE (NEGATIVE); Opiates NEGATIVE (NEGATIVE); Phencyclidine NEGATIVE (NEGATIVE); THC Cannibis NEGATIVE (NEGATIVE)
[2018-11-18 21:19] LABS: ALT/SGPT 20 U/L (12-78); AST/SGOT 18 U/L (15-37); Albumin 3.9 g/dL (3.4-5.0); Alkaline Phosphatase 71 U/L (45-117); BUN Blood Urea Nitrogen 20 mg/dL (7-18); Bicarbonate 27 mmol/L (21-32); Bilirubin Direct < 0.1 mg/dL (0-0.2); Bilirubin Total 0.4 mg/dL (0.2-1.0); Glucose Level 101 mg/dL (74-106); Potassium 3.2 mmol/L (3.5-5.1); Sodium Level 143 mmol/L (136-145)
--- NOTE | 2018-11-19 00:13 | ER ---
Nurse's Notes [facility] Name: John Richards Age: 53 yrs Sex: Male : 1965 Arrival Date: 11/18/2018 Time: 18:42 Bed 15 Private MD: Diagnosis: Schizophrenia, unspecified Presentation: 11/18 18:45 Note called pt form lobby no answer;. hj 19:05 Note called pt from lobby; still no answer;. hj 19:08 Presenting complaint: Patient states: "I am having suicidal thought today. I jumped off jd3 a bridge, but I guess it wasn't high enough. I called [facility] for help and they said come to the ER to help get me to them. I have been off my meds for 6 weeks now.". Transition of care: patient was not received from another setting of care. Onset of symptoms was November 18, 2018. Risk Assessment: Do you want to hurt yourself or someone else? Patient reports desire/thoughts of hurting themselves or someone else. Provider notified. Initial Sepsis Screen: Does the patient meet any 2 criteria? No. Patient's initial sepsis screen is negative. Does the patient have a suspected source of infection? No. Patient's initial sepsis screen is negative. Care prior to arrival: None. 19:08 Method Of Arrival: Ambulatory jd3 19:08 Acuity: VICTOR HUGO 2 jd3 Historical: - Allergies: 19:13 No Known Allergies; jd3 - Home Meds: 19:13 mood stabilizer meds [Active]; seizure meds [Active]; Seroquel Oral [Active]; Trazodone jd3 Oral [Active]; - PMHx: 19:13 Bipolar disorder; Chronic pain; Depression; Hernia; PTSD; Schizophrenia; jd3 - PSHx: 19:13 None; jd3 - Immunization history:: Adult Immunizations up to date. - Social history:: Smoking status: Patient uses tobacco products, smokes one pack cigarettes per day. - Ebola Screening: : Patient negative for fever greater than or equal to 101.5 degrees Fahrenheit, and additional compatible Ebola Virus Disease symptoms. Screenin:30 Abuse screen: Denies threats or abuse. Nutritional screening: No deficits noted. jb4 Tuberculosis screening: No symptoms or risk factors identified. Fall Risk None identified. Assessment: 19:30 General: Appears in no apparent distress. comfortable, Behavior is calm, cooperative, jb4 appropriate for age. Pain: Denies pain. Neuro: Level of Consciousness is awake, alert, obeys commands, Oriented to person, place, time, situation. Cardiovascular: Patient's skin is warm and dry. Respiratory: Airway is patent Respiratory effort is even, unlabored, Respiratory pattern is regular, symmetrical. GI: No signs and/or symptoms were reported involving the gastrointestinal system. : No signs and/or symptoms were reported regarding the genitourinary system. EENT: No signs and/or symptoms were reported regarding the EENT system. Derm: Skin is intact, Skin is pink, warm \\T\\ dry. Musculoskeletal: Circulation, motion, and sensation intact. 20:30 Reassessment: Patient appears in no apparent distress at this time. Patient and/or jb4 family updated on plan of care and expected duration. Pain level reassessed. Patient is alert, oriented x 3, equal unlabored respirations, skin warm/dry/pink. 21:30 Reassessment: Patient appears in no apparent distress at this time. Patient and/or jb4 family updated on plan of care and expected duration. Pain level reassessed. Patient is alert, oriented x 3, equal unlabored respirations, skin warm/dry/pink. 22:30 Reassessment: Patient appears in no apparent distress at this time. Patient and/or jb4 family updated on plan of care and expected duration. Pain level reassessed. Patient is alert, oriented x 3, equal unlabored respirations, skin warm/dry/pink. 22:59 Reassessment: Nurse to Nurse report given to Abhinav US, [facility]. jb4 23:01 Reassessment: report given to [place] nurse Sonny US. jd3 23:01 Reassessment: Report given to Yenifer [facility]. 23:30 Reassessment: Patient appears in no apparent distress at this time. Patient and/or jb4 family updated on plan of care and expected duration. Pain level reassessed. Patient is alert, oriented x 3, equal unlabored respirations, skin warm/dry/pink. 11/19 00:00 Reassessment: Patient appears in no apparent distress at this time. Patient and/or jb4 family updated on plan of care and expected duration. Pain level reassessed. Patient is alert, oriented x 3, equal unlabored respirations, skin warm/dry/pink. Pt left ED prior to discharge instructions being given or being signed. Psych: 11/18 19:11 Subjective: Patient's mood is sad, Delusions are denied, Hallucinations are auditory, jd3 Having thoughts of suicide. Plan for suicide is jump off a bridge. Objective: Patient is cooperative, Speech is normal, Affect is appropriate. 19:27 Interventions: Removed personal items and placed in bag. Patient placed in hospital lp1 gown. Searched person for dangerous items. Urine collected and sent for urine drug test. Belonging list filled out. 19:30 Suicide Risk Assessment: Sad Person Scale: Sex of patient: Male: Score 1 point. Age of jb4 patient: Score 0 point if patient falls outside of specified age parameters. Depression: Score 1 point if signs of depression are present. Previous Attempt: Substance Abuse: Score 0 point if patient does not abuse alcohol or drugs. Rational Thinking: Score 0 point if patient has rational thinking. Social Support: Score 1 point if social support is lacking and/or unavailable. Organized Plan: Score 0 if patient did not have an organized plan in place. Relationship: Score 1 point if patient is , , , or for a single male Chronic Sickness: Score 1 point if patient has illness, chronic, debilitating, or severe. TOTAL POINTS: If total points are 5-6, proposed clinical action is to strongly consider hospitalization, depending upon confidence in the follow-up arrangement. Implement suicide precautions. 19:30 Safety Checks: Personal items have been removed. Door is open. No visitors are present jb4 at this time. Pt denies substance abuse. Commitment: Patient will be a voluntary commitment. Vital Signs: 19:13 BP 115 / 83; Pulse 64; Resp 17 S; Temp 98.0(O); Pulse Ox 100% on R/A; Weight 56.7 kg jd3 (R); Height 5 ft. 7 in. (170.18 cm) (R); Pain 0/10; 21:28 BP 95 / 62; Pulse 67; Resp 17; Temp 98.0; Pulse Ox 100% ; Pain 0/10; cm6 23:20 BP 92 / 57; Pulse 65; Resp 18; Temp 98.0; Pulse Ox 99% ; Pain 0/10; cm6 23:45 BP 115 / 67; Pulse 87; Resp 18; Temp 98.0; Pulse Ox 99% ; Pain 0/10; cm6 19:13 Body Mass Index 19.58 (56.70 kg, 170.18 cm) jd3 ED Course: 18:42 Patient arrived in ED. mr 19:11 Triage completed. jd3 19:14 Arm band placed on. jd3 19:33 Safety checks: Items removed: yes. Door open/sign placed on door: yes. Family/friend cm6 present: no. Sitter present: Yes. 19:48 Safety checks: Items removed: yes. Door open/sign placed on door: yes. Family/friend cm6 present: no. Sitter present: Yes. 20:00 Safety checks: Items removed: yes. Door open/sign placed on door: yes. Family/friend cm6 present: no. Sitter present: Yes. 20:00 Initial lab(s) drawn, by ED staff, sent to lab. Inserted saline lock: 22 gauge in right jb4 forearm, using aseptic technique. Blood collected. 20:15 Safety checks: Items removed: yes. Door open/sign placed on door: yes. Family/friend cm6 present: no. Sitter present: Yes. 20:24 Valentín Pineda RN is Primary Nurse. jb4 20:27 Jass Greene MD is Attending Physician. ps1 20:30 Safety checks: Items removed: yes. Door open/sign placed on door: yes. Family/friend cm6 present: no. Sitter present: Yes. 20:45 Safety checks: Items removed: yes. Door open/sign placed on door: yes. Family/friend cm6 present: Sitter present: Yes. 21:00 Safety checks: Items removed: yes. Door open/sign placed on door: yes. Family/friend cm6 present: no. Sitter present: Yes. 21:15 Safety checks: Items removed: yes. Door open/sign placed on door: yes. Family/friend cm6 present: no. Sitter present: Yes. 21:30 Safety checks: Items removed: yes. Door open/sign placed on door: yes. Family/friend cm6 present: no. Sitter present: Yes. 21:45 Safety checks: Items removed: yes. Door open/sign placed on door: yes. Family/friend cm6 present: no. Sitter present: Yes. 21:46 Harshal Barrett, SEVERIANO is PHCP. pm1 22:00 Safety checks: Items removed: yes. Door open/sign placed on door: yes. Family/friend cm6 present: no. Sitter present: Yes. 22:15 Safety checks: Items removed: yes. Door open/sign placed on door: yes. Family/friend cm6 present: no. Sitter present: Yes. 22:30 Safety checks: Items removed: yes. Door open/sign placed on door: yes. Family/friend cm6 present: no. Sitter present: Yes. 22:45 Safety checks: Items removed: yes. Door open/sign placed on door: yes. Family/friend cm6 present: no. Sitter present: Yes. 23:00 Safety checks: Items removed: yes. Door open/sign placed on door: yes. Family/friend cm6 present: no. Sitter present: Yes. 23:15 Safety checks: Items removed: yes. Door open/sign placed on door: yes. Family/friend cm6 present: no. Sitter present: Yes. 23:30 Safety checks: Items removed: yes. Door open/sign placed on door: yes. Family/friend cm6 present: no. Sitter present: Yes. 23:45 Safety checks: Items removed: yes. Door open/sign placed on door: yes. Family/friend cm6 present: no. Sitter present: Yes. 11/19 00:00 No provider procedures requiring assistance completed. IV discontinued, intact, jb4 bleeding controlled, No redness/swelling at site. Administered Medications: 00:30 CANCELLED (Pt left Ed prior to medication administration): Ibuprofen 800 mg PO once jb4 Outcome: 00:10 Discharge ordered by . pm1 00:15 Discharged to home ambulatory. jb4 00:15 Condition: stable 00:30 Patient left the ED. jb4 Signatures: Mancilla, Mili mr DoreendemarcoAmna, RN RN fc Lola Donaldson, RN RN lp1 Adebayo Hudson RN RN hj Harshal Barrett, SEVERIANO [employer] pm1 Valentín Pineda RN RN jb4 Gabriel Juarez RN RN jJass Gustafson MD MD ps1 Mack, Candace cm6 Corrections: (The following items were deleted from the chart) 11/18 19:08 18:55 Note called pt form lobby no answer; hj hj 19:18 19:08 Presenting complaint: Patient states: "I called [facility] for help and they nya said come to the ER to help get me to them. I have been off my meds for 6 weeks now." nya 21:11 21:08 Safety checks: Items removed: cm6 cm6 23:05 23:01 Reassessment: report given to Harvinder Adam nurse Dotty fay jd3
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
--- NOTE | 2018-11-19 10:57 | EKG ---
Test Date: 2018-11-18 Test Time: 21:18:11 Lighting Engineer: ELYSSA MEASUREMENT RESULTS: Intervals: Rate: 62 LA: 152 QRSD: 110 QT: 414 QTc: 420 Plover: P: 70 LA: 152 QRS: 65 T: 68 INTERPRETIVE STATEMENTS: Normal sinus rhythm Incomplete right bundle branch block Borderline ECG Compared to ECG 11/15/2018 16:21:59 No significant changes Electronically Signed On 11-19-18 10:55:00 CDT by Codey Jean
== END 2018-11-19 00:30 | disposition home or self-care (01) ==
LOC: ER 18:38
DX: F20.9 Schizophrenia, unspecified (principal); F17.210 Nicotine dependence, cigarettes, uncomplicated; F32.9 Major depressive disorder, single episode, unspecified
CPT/HCPCS: 36415; 80048; 80076; 80307; 80320; 80329; 81003; 85025; 93005; 99284